=== PATIENT | female | born 1995 | race Caucasian/White ===

== ENCOUNTER → 2017-08-10 20:48 | Outpatient (CLI) | payer MEDICAID, SELFPAY | PROVIDERS: Family Provider Internal Medicine; PCP Internal Medicine; Visit Provider Nurse Practitioner Women's Health | DX: O09.90 Supervision of high risk pregnancy, unspecified, unspecified trimester (principal); Z3A.00 Weeks of gestation of pregnancy not specified | CPT/HCPCS: 87086; 87088 ==

== ENCOUNTER 2017-09-06 11:26 | Emergency (ER) | payer MEDICAID, SELFPAY ==
[2017-09-06 11:27] VITALS: BP 136/72; PULSE 92; RESP 15; TEMP 36; O2SAT 96; BMI 37.9
--- NOTE | 2017-09-06 11:49 | CT_ITS ---
STUDY: CT BRAIN WITHOUT CONTRAST REASON FOR EXAM: Female, 22 years old. 26 weeks patient with nausea and migraine headache. History of AVM. RADIATION DOSAGE (If Supplied By Facility): CTDIvol = ( 44.99 ) mGy, DLP = ( 762.36 ) mGycm TECHNIQUE: Transaxial CT imaging of the brain was performed without administration of intravenous contrast material. Individualized dose optimization techniques were used for this CT. COMPARISON: None. FINDINGS: Normal soft tissue structures. Normal calvarium. Normal size ventricles and extra-axial spaces for the patient's age. There is small area of increased attenuation in the posterior left occipital region adjacent to the occipital horn of the left lateral ventricle most consistent with small area of bleed. No shift in the midline is seen. Normal basal ganglia and thalami. Normal brainstem. Normal cerebellum. There are no findings of an acute ischemic infarction. Normal visualized paranasal sinuses. CT/Brain/Head without Contrast IMPRESSION: Small area of bleed in the left occipital region as described above. Close follow-up examination or MRI of the brain are recommended. N.B. : The above information has been verbally conveyed by Ayush Wahl MD to Dr. Lisy Sparks, Covering Physician, on 09/06/2017 12:50:18 (ET). Electronically Signed: Ayush Wahl MD at 12:47 EDT Tel , Service support , N.B. : The above information has been verbally conveyed by Ayush Wahl MD to Dr. Lisy Sparks, Covering Physician, on 09/06/2017 12:50:18 (ET).
--- NOTE | 2017-09-06 11:52 | ED.VISSUMM ---
- ER Visit Summary Date of Service: 09/06/17 Chief Complaint: Headache History of Present Illness: The patient is a 22 F presenting with headache which started this morning. Headache woke her from sleep. She states this is not the worst headache of her life. She is currently 26 weeks . She tried Tylenol at home with minimal improvement. She denies fever. She has photophobia. She states during her first she had cavernous angioma with bleeding and therefore she presented to the emergency department. Physical Examination: Vitals are stable. Patient is afebrile. Alert no acute distress. HEENT exam is unremarkable. Neck is supple. No meningismus Lungs are clear and equal bilaterally. Heart is regular rate and rhythm. Abdomen is soft nontender nondistended. Extremities are unremarkable. Skin is warm and dry. No focal neurologic deficit. NIH 0 Remainder of exam is unremarkable. Emergency Department Course and Treatment: Patient is given Reglan, Benadryl. CT head shows small area of bleed in the left occipital region. Close follow-up examination or MRI of the brain are recommended. Patient has been treated at [facility] before and prefers transfer to [facility]. Discussed with [facility] for transfer. Discussed with Dr. Moran. Patient will be transferred to [facility]. Disposition: Transfer [facility] Impression: Small left occipital bleed, headache, This note was generated with [employer] dictation software. It may contain incorrect words, spelling, and punctuation that were not noted in review of the chart prior to signing ED Disposition - Plan for ED Patient: Chief Complaint: Headache Referrals: Sherri rBown MD [Primary Care Provider] -
[2017-09-06] MEDS: Metoclopramide 10 MG Tablet PO (12:26)
[2017-09-06] MEDS: DiphenhydrAMINE 25 MG Capsule PO (12:26)
[2017-09-06] MEDS: 0.9% Normal Saline 1,000 ML 999 ML IV (12:27)
[2017-09-06 13:26] VITALS: BP 104/74; PULSE 71; RESP 21; O2SAT 94
[2017-09-06 13:27] LABS: Absolute Lymphocyte Count 2.92 X10^3/ul (0.83-4.51); Absolute Neutrophil Count 7.2 X10^3/uL (2.0-7.7); Basophil# 0.01 X10^3/uL; Basophil% 0.1 % (0-1); Eosinophil# 0.05 X10^3/uL; Eosinophils% 0.5 % (0-5); Hematocrit 36.4 % (37-47); Hemoglobin 12.6 g/dl (12.0-15.0); Lymphocyte # 2.92 X10^3/ul (4.0); Mean Corp Hgb Conc 34.6 g/gl (32-36); Mean Corpuscular Hgb 30.8 pg (27.0-32.0); Mean Platelet Vol. 10.3 fl (6.2-12.0); Monocyte# 0.61 X10^3/uL; Monocyte% 5.6 % (0-10); Neutrophil % 66.4 % (47-70); Platelet Count 183 K/mm3 (150-450); RBC Distribution Width CV 13.1 % (11.6-14.6); Red Blood Count 4.09 M/mm3 (4.2-5.4); White Blood Count 10.8 K/mm3 (4.4-11.0)
[2017-09-06 13:28] LABS: POSITIVE COUNT NO; POSITIVE DIFFERENTIAL NO; POSITIVE MORPHOLOGY NO
[2017-09-06 13:39] LABS: Anion Gap 9 (5-15); BUN 6 mg/dL (7-18); BUN/Creat Ratio 13.1 RATIO (10-20); Calcium,Total 8.2 mg/dL (8.5-10.1); Chloride 108 mmol/L (98-107); Creatinine, Serum 0.46 mg/dL (0.55-1.02); EST Glomerular Filtration Rate 178 mL/min (>60); Est Glom Filt Rate - Afr Amer 216 mL/min (>60); Glucose 78 mg/dL (74-106); Potassium 3.8 mmol/L (3.5-5.1); Sodium Level 139 mmol/L (136-145)
[2017-09-06 13:57] VITALS: BP 101/63; PULSE 84; RESP 20; O2SAT 99
== END 2017-09-06 14:01 | disposition short-term general hospital (02) ==
LOC: ED 12:02
PROVIDERS: Emergency Provider Emergency Medicine; Family Provider Internal Medicine; PCP Internal Medicine
DX: O99.412 Diseases of the circulatory system complicating pregnancy, second trimester (principal); I62.9 Nontraumatic intracranial hemorrhage, unspecified; Z3A.26 26 weeks gestation of pregnancy; Z86.79 Personal history of other diseases of the circulatory system
CPT/HCPCS: 70450; 80048; 85025; 99285; J7030; A4216

== ENCOUNTER 2017-09-13 23:50 | Outpatient (CLI) | payer MEDICAID, SELFPAY ==
[2017-09-14 00:12] VITALS: BMI 37.8
[2017-09-14] MEDS: Dextrose 5%-Lactated Ringers 1,000 ML 999 ML IV (00:50)
[2017-09-14 00:59] LABS: Bacteria 0 SEEN /hpf (None Seen); Mucous, Urine 0 SEEN /hpf (<or=2+); Red Blood Cells-Urine 0 SEEN /hpf (0-5)
[2017-09-14 01:01] LABS: Color, Urine Yellow (Yellow); Glucose, Dipstick Normal (Normal); Ketone-Dipstick 15 mg/dl (Negative); Leukocyte Esterase-Dipstick 25 /ul (Negative); Nitrite-Dipstick Negative (Negative); Occult Blood-Urine Negative /ul (Negative); Protein-Dipstick 30 mg/dl (Negative); Specific Gravity, Urine 1.025 (1.002-1.030); Urine Bilirubin Dipstick Negative (Negative); Urine Clarity Clear (Clear); Urine Urobilinogen Normal (Normal)
[2017-09-14] MEDS: Ondansetron 4 MG/2 ML Vial IV ×2 (01:10→08:45)
[2017-09-14 01:20] LABS: Hematocrit 40.3 % (37-47); Hemoglobin 14.1 g/dl (12.0-15.0); Mean Corpuscular Hgb 31.2 pg (27.0-32.0); Mean Corpuscular Volume 89.2 fL (81-99); Mean Platelet Vol. 10.8 fl (6.2-12.0); Platelet Count 204 K/mm3 (150-450); RBC Distribution Width CV 13.5 % (11.6-14.6); Red Blood Count 4.52 M/mm3 (4.2-5.4)
[2017-09-14 01:21] LABS: Scan Indicated on CBC? Y/N NO
[2017-09-14 01:34] LABS: ALB/GLOB Ratio 0.6 RATIO (0.9-2.4); AST(SGOT) 14 U/L (15-37); Alanine Aminotransfer ALT/SGPT 21 U/L (13-56); Albumin, Serum 2.7 g/dL (3.2-5.0); Alkaline Phosphatase 84 U/L (45-117); Anion Gap 9 (5-15); BUN 10 mg/dL (7-18); BUN/Creat Ratio 17.2 RATIO (10-20); Calcium,Total 8.2 mg/dL (8.5-10.1); Chloride 109 mmol/L (98-107); Creatinine, Serum 0.58 mg/dL (0.55-1.02); EST Glomerular Filtration Rate 135 mL/min (>60); Est Glom Filt Rate - Afr Amer 164 mL/min (>60); Estimated Creatinine Clearance 112.86 ml/min; Globulin 4.5 g/dL (2.2-4.2); Glucose 93 mg/dL (74-106); Potassium 3.8 mmol/L (3.5-5.1); Protein, Total 7.2 g/dL (6.4-8.2); Sodium Level 140 mmol/L (136-145)
[2017-09-14 02:30] LABS: Amorphous Sediment 1+; Squamous Epithelial Cells - UA 5-10 SEEN /hpf (5-10); White Blood Cells 0-5 SEEN /hpf (0-5)
[2017-09-14] MEDS: Lactated Ringers 1,000 ML 200 ML IV (02:46)
[2017-09-14] MEDS: proMETHazine 25 MG/ML Syringe 12.5 MG IV (02:47)
[2017-09-14] MEDS: Lactated Ringers 500 ML 999 ML IV (06:48)
[2017-09-14] MEDS: Lactated Ringers 1,000 ML 150 ML IV (07:48)
[2017-09-14] MEDS: Acetaminophen 500 MG Tablet 1000 MG PO (08:42)
--- NOTE | 2017-09-16 05:26 | OB.TRI.NOTE ---
History of Present Illness Date of Service: 09/14/17 Reason For Visit: CRAMPING, N/V Date of Service: 09/14/17 Final ANGELA: 12/12/17 Gestational age: 27 Weeks and 4 Days History of Present Illness: 22 yo presented with abdominal pain nausea and vomiting at 27 weeks. no vb lof good fm some contractions. she denies any sick contacts. she hasn't kept anything but water down in 24 hours. ROS: general no fevers gi see hpi Home Medications Medication Instructions Recorded Pnv No.122/Iron/Folic Acid 1 ea PO BID 05/12/17 [ Multi Tablet] Allergies amoxicillin [Amoxicillin] Allergy (Verified 09/15/17 11:55) Rash clarithromycin [From Biaxin] Allergy (Verified 09/15/17 11:55) Rash soy Allergy (Verified 09/15/17 11:55) Anaphylaxis lactose Adverse Reaction (Verified 09/15/17 11:55) Upset Stomach latex Adverse Reaction (Verified 09/15/17 11:55) Rash - Pertinent Past Medical History Pertinent Past Medical History: Past Medical History (Last Reviewed 09/15/17 @ 11:55 by Barbara Gatica) Cavernous hemangioma of brain (Acute) HSV (herpes simplex virus) infection (Acute) Post depression (Acute) Past Surgical History (Last Reviewed 09/15/17 @ 11:55 by Barbara Gatica) delivery delivered (Acute) Physical Exam General: Alert, Oriented x3, No apparent distress Cardiovascular: Regular rate Lungs: Normal air movement Abdomen: Soft, Non Tender, Gravid NST - FHR Rate Baby A Baseline: 150 Variability:: Moderate Accelerations:: 10 x 10 Decelerations:: None NST Reactive:: Yes FHR Category:: Category I Uterine Activity:: no regular Impression/Plan 27 weeks nausea vomiting likeyl viral gastroenteritis- ivfs given and anti emetics, tolearting po now dc home
== END 2017-09-14 10:40 | disposition home or self-care (01) ==
LOC: WPOUT 09-14 00:08 → WP 09-14 00:08
PROVIDERS: Family Provider Internal Medicine; PCP Internal Medicine; Visit Provider Obstetrics & Gynecology
DX: O21.2 Late vomiting of pregnancy (principal); Z3A.27 27 weeks gestation of pregnancy
CPT/HCPCS: 96361; 96374; 96375; 96376; 36415; 59025; 59050; 80053; 81001; 85027; 87086; 87088; 99218; G0378

== ENCOUNTER → 2017-09-17 10:26 | Outpatient (CLI) | payer MEDICAID, SELFPAY ==
[2017-09-17 12:01] LABS: Glucose Challenge Gest 1H 50g 89 mg/dL (70-140)
== END ==
PROVIDERS: Family Provider Internal Medicine; PCP Internal Medicine; Visit Provider Obstetrics & Gynecology
DX: O34.219 Maternal care for unspecified type scar from previous cesarean delivery (principal); Z3A.00 Weeks of gestation of pregnancy not specified
CPT/HCPCS: 36415; 82950

== ENCOUNTER → 2017-10-05 23:33 | Outpatient (CLI) | payer MEDICAID, SELFPAY | PROVIDERS: Family Provider Internal Medicine; PCP Internal Medicine; Visit Provider Nurse Practitioner Women's Health | DX: O26.893 Other specified pregnancy related conditions, third trimester (principal); R10.2 Pelvic and perineal pain; Z3A.00 Weeks of gestation of pregnancy not specified | CPT/HCPCS: 87077; 87086; 87088; 87186 ==

== ENCOUNTER 2017-10-10 20:15 | Outpatient (CLI) | payer MEDICAID, SELFPAY ==
[2017-10-10 21:21] VITALS: BMI 38.5
[2017-10-10 21:25] LABS: Color, Urine Yellow (Yellow); Glucose, Dipstick Normal (Normal); Ketone-Dipstick Negative (Negative); Leukocyte Esterase-Dipstick Negative /ul (Negative); Nitrite-Dipstick Negative (Negative); Occult Blood-Urine Negative /ul (Negative); Protein-Dipstick Negative (Negative); Urine Bilirubin Dipstick Negative (Negative); Urine Clarity Clear (Clear); Urine Urobilinogen Normal (Normal)
[2017-10-10 21:26] LABS: Bacteria 0 SEEN /hpf (None Seen); Mucous, Urine 0 SEEN /hpf (<or=2+); Red Blood Cells-Urine 0 SEEN /hpf (0-5); White Blood Cells 0 SEEN /hpf (0-5)
[2017-10-10 21:29] LABS: Squamous Epithelial Cells - UA 0-5 SEEN /hpf (5-10)
--- NOTE | 2017-10-10 22:00 | OB.TRI.NOTE ---
History of Present Illness Date of Service: 10/10/17 Was patient seen by the physician?: No Reason For Visit: R/O LABOR Date of Service: 10/10/17 Final ANGELA: 12/12/17 Final ANGELA Source: US <20 weeks Gestational age: 31 Weeks History of Present Illness: 22yo @ 31wga with c/o cramping. No leaking of fluid or vaginal bleeding. Fetus active. Home Medications Medication Instructions Recorded Pnv No.122/Iron/Folic Acid 1 ea PO BID 05/12/17 [ Multi Tablet] cyclobenzaprine 10 mg tablet 10 mg PO TID PRN #30 tab 09/22/17 Acetaminophen [Tylenol] 325 mg PO Q6H PRN PRN 10/10/17 Nitrofurantoin Macrocrystal 100 mg PO BID 10/10/17 [Nitrofurantoin] Allergies amoxicillin [Amoxicillin] Allergy (Verified 10/10/17 22:06) Rash clarithromycin [From Biaxin] Allergy (Verified 10/10/17 22:06) Rash soy Allergy (Verified 10/10/17 22:06) Anaphylaxis lactose Adverse Reaction (Verified 10/10/17 22:06) Upset Stomach latex Adverse Reaction (Verified 10/10/17 22:06) Rash Physical Exam Cervix Dilation (cm): 0 Station: -3 Effacement (%): 0 NST - FHR Rate Baby A Baseline: 140 Variability:: Moderate Accelerations:: 15 x 15 Decelerations:: None NST Reactive:: Yes FHR Category:: Category I Uterine Activity:: 0/10 Impression/Plan 22yo with false labor at < 37wga, Cat I FHR. -U/A neg -d/c home
== END 2017-10-10 22:05 | disposition home or self-care (01) ==
LOC: WPOUT 20:47 → WP 20:48
PROVIDERS: Family Provider Internal Medicine; PCP Internal Medicine; Visit Provider Obstetrics & Gynecology
DX: O47.03 False labor before 37 completed weeks of gestation, third trimester (principal); Z3A.31 31 weeks gestation of pregnancy
CPT/HCPCS: 59025; 59050; 81001; 99218; G0378

== ENCOUNTER 2017-10-29 22:20 | Outpatient (CLI) | payer MEDICAID, SELFPAY ==
[2017-10-29 22:54] VITALS: BMI 40.1
[2017-10-29 23:38] LABS: Bacteria 0 SEEN /hpf (None Seen); Mucous, Urine 0 SEEN /hpf (<or=2+); Red Blood Cells-Urine 0 SEEN /hpf (0-5); Squamous Epithelial Cells - UA 0 SEEN /hpf (5-10); White Blood Cells 0 SEEN /hpf (0-5)
[2017-10-29 23:43] LABS: Color, Urine Yellow (Yellow); Glucose, Dipstick 100 mg/dl (Normal); Ketone-Dipstick Negative (Negative); Leukocyte Esterase-Dipstick Negative /ul (Negative); Nitrite-Dipstick Negative (Negative); Occult Blood-Urine Negative /ul (Negative); Protein-Dipstick Negative (Negative); Specific Gravity, Urine 1.015 (1.002-1.030); Urine Bilirubin Dipstick Negative (Negative); Urine Clarity Clear (Clear); Urine Urobilinogen Normal (Normal); Urine pH 6.5 (5.0 - 8.0)
[2017-10-30 00:28] VITALS: RESP 18
--- NOTE | 2017-11-03 05:57 | OB.TRI.NOTE ---
- Problem List (1) headache in third trimester Status: Acute History of Present Illness Was patient seen by the physician?: Yes Reason For Visit: NUMBNESS/TINGLING IN HANDS Final ANGELA Source: US <20 weeks History of Present Illness: visual changes- she has had blurry vision intermittently, nothing new for her, co numbness and tingling in her arms, resolved now Home Medications Medication Instructions Recorded Pnv No.122/Iron/Folic Acid 1 ea PO BID 05/12/17 [ Multi Tablet] Allergies amoxicillin [Amoxicillin] Allergy (Verified 10/29/17 22:54) Rash clarithromycin [From Biaxin] Allergy (Verified 10/29/17 22:54) Rash soy Allergy (Verified 10/29/17 22:54) Anaphylaxis lactose Adverse Reaction (Verified 10/29/17 22:54) Upset Stomach latex Adverse Reaction (Verified 10/29/17 22:54) Rash - Pertinent Past Medical History Medical History: Past Medical History (Last Reviewed 10/21/17 @ 09:09 by Barbara Gatica) 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 reactive nst dc home
== END 2017-10-30 00:28 | disposition home or self-care (01) ==
LOC: WPOUT 22:25 → WP 22:25
PROVIDERS: Family Provider Internal Medicine; PCP Internal Medicine; Visit Provider Obstetrics & Gynecology
DX: O26.899 Other specified pregnancy related conditions, unspecified trimester (principal); H53.8 Other visual disturbances; R20.0 Anesthesia of skin; Z3A.00 Weeks of gestation of pregnancy not specified
CPT/HCPCS: 59025; 59050; 81001; 99218; G0378

== ENCOUNTER 2017-11-06 15:00 | Outpatient (CLI) | payer MEDICAID, SELFPAY ==
--- NOTE | 2017-11-06 14:00 | US_ITS ---
STUDY: SECOND AND THIRD TRIMESTER OBSTETRICAL ULTRASOUND - LIMITED REASON FOR EXAM: Female, 22 years old. Routine survey. LMP: March 07, 2017. PRIOR ULTRASOUND: None. TECHNIQUE: Transabdominal ultrasound evaluation was performed. FINDINGS: There is a single intrauterine fetus. The fetus is in a cephalic presentation. There is demonstrated cardiac activity with a heart rate of 149 bpm. There is decreased amniotic fluid volume consistent with oligohydramnios. The largest amniotic fluid pocket measures 5.4 cm x 1.8 cm. The amniotic fluid index (STACIA) is 6.6 cm. The placenta is anterior in location and is not low lying. There are Grade 1 placental changes. The cervix measures 4.2 cm cm in length. BIOMETRY: BPD: 8.14 cm: 32 weeks, 5 days HC: 30.86 cm: 34 weeks, 4 days AC: 31.43 cm: 35 weeks, 3 days FL: 6.67 cm: 34 weeks, 3 days Age by LMP: 34 weeks, 6 days. ANGELA by LMP: December 12, 2017. age by current US: 34 weeks, 2 days. ANGELA by current US: December 16, 2017. Estimated weight: 2496 grams, +/- 364 grams, 42 percentile. Gender: Indeterminant US/OB Limited With Biometrics IMPRESSION: Single live uterine gestation with a mean gestational age of 34 weeks and 2 days. Oligohydramnios. Electronically Signed: Vinay Garrett MD at 15:17 EDT Tel [phone], Service support ,
[2017-11-06 15:20] VITALS: BMI 40.2
[2017-11-06 15:58] LABS: ROM Internal Control Test YES-OK TO RESULT pt. (Internal QC)
[2017-11-06 15:59] LABS: ROM Patient Test Negative (Negative)
--- NOTE | 2017-11-18 04:48 | OB.TRI.NOTE ---
History of Present Illness Date of Service: 11/06/17 Was patient seen by the physician?: No Reason For Visit: GROWTH Date of Service: 11/06/17 Final ANGELA Source: US <20 weeks Allergies amoxicillin [Amoxicillin] Allergy (Verified 11/17/17 21:06) Rash clarithromycin [From Biaxin] Allergy (Verified 11/17/17 21:06) Rash soy Allergy (Verified 11/17/17 21:06) Anaphylaxis lactose Adverse Reaction (Verified 11/17/17 21:06) Upset Stomach latex Adverse Reaction (Verified 11/17/17 21:06) Rash - Pertinent Past Medical History Medical History: Past Medical History (Last Reviewed 11/04/17 @ 09:34 by Barbara Gatica) Cavernous hemangioma of brain HSV (herpes simplex virus) infection Post depression Surgical History: Past Surgical History (Last Reviewed 11/04/17 @ 09:34 by Barbara Gatica) delivery delivered Impression/Plan patient seen needed growth scan, headache- WNL dc home fu in office
== END 2017-11-06 16:30 | disposition home or self-care (01) ==
LOC: WPOUT 15:17 → US 15:26 → WPOUT 15:27 → WP 15:28
PROVIDERS: Family Provider Internal Medicine; PCP Internal Medicine; Visit Provider Obstetrics & Gynecology
DX: O09.90 Supervision of high risk pregnancy, unspecified, unspecified trimester (principal); Z87.59 Personal history of other complications of pregnancy, childbirth and the puerperium; Z3A.00 Weeks of gestation of pregnancy not specified
CPT/HCPCS: 59025; 59050; 76816; 84112; 99218; G0378

== ENCOUNTER 2017-11-17 18:40 | Emergency (ER) | payer MEDICAID, SELFPAY ==
[2017-11-17 18:41] VITALS: BP 104/68; PULSE 101; RESP 16; TEMP 36.9; O2SAT 97; BMI 41.1
--- NOTE | 2017-11-17 18:44 | RAD_ITS ---
STUDY: X-RAY - RIGHT FOOT CLINICAL: Female, 22 years old. Foot pain after fall. TECHNIQUE: 3 view(s) of the foot. COMPARISON: None. FINDINGS: There is a plantar calcaneal enthesophyte present. Normal visualized subtalar, talonavicular, calcaneocuboid, tarsal and tarsometatarsal articulations. Normal metatarsi. Normal metatarsophalangeal joint of the great toe. Normal interphalangeal joint of the great toe. Normal phalanges of the great toe. Normal second through fifth metatarsophalangeal joints. Normal interphalangeal joints and phalanges of the lesser toes. The soft tissue structures are unremarkable. RAD/Foot min 3 Views IMPRESSION: No acute osseous injury. Electronically Signed: Smita Broderick MD at 19:33 EDT Tel , Service support ,
--- NOTE | 2017-11-17 19:53 | ED.DCSUM_ITS ---
- ER Visit Summary Date of Service: 11/17/17 Chief Complaint: Right foot pain History of Present Illness: The patient is a 22 F presenting with right foot pain. Patient states she slipped and fell twisting her foot and landing on her back. She is 36 weeks . She states she did not hit her abdomen. She denies fluid leakage or vaginal bleeding. She hit her head but did not lose consciousness. She complains of right foot pain. She called her OB was advised to come for an x-ray of her foot and then go to OB triage for nonstress test. Physical Examination: Vitals are stable. Patient is afebrile. Alert no acute distress. HEENT exam is unremarkable. Neck is nontender Lungs are clear and equal bilaterally. Heart is regular rate and rhythm. Abdomen is soft nontender gravid Extremities right 3rd-5th toe tenderness. No ankle or knee tenderness Skin is warm and dry. No focal neurologic deficit. Remainder of exam is unremarkable. Emergency Department Course and Treatment: X-ray of the right foot shows no acute process. Toes are elvis taped, she is given a postop shoe. She will follow-up in OB triage. Disposition: To OB triage Impression: Right foot contusion status post mechanical fall, third trimester This note was generated with [employer] dictation software. It may contain incorrect words, spelling, and punctuation that were not noted in review of the chart prior to signing ED Disposition - Plan for ED Patient: Chief Complaint: Lower Extremity Injury Referrals: Sherri Brown MD [Primary Care Provider] -
--- NOTE | 2017-11-17 19:56 | ED.DEP ---
ED Disposition - Plan for ED Patient: Chief Complaint: Lower Extremity Injury Instructions: ED Contusion Foot Referrals: Sherri Brown MD [Primary Care Provider] -
[2017-11-17 20:21] VITALS: RESP 18
--- NOTE | 2017-11-17 20:22 | ED.RN ---
PT IS AWARE NEEDS TO GO TO OB FOR NST. OB AWARE.
== END 2017-11-17 20:23 | disposition home or self-care (01) ==
PROVIDERS: Emergency Provider Emergency Medicine; Family Provider Internal Medicine; PCP Internal Medicine
DX: O26.893 Other specified pregnancy related conditions, third trimester (principal); S90.31XA Contusion of right foot, initial encounter; Z3A.36 36 weeks gestation of pregnancy; W01.0XXA Fall on same level from slipping, tripping and stumbling without subsequent striking against object, initial encounter; Y93.01 Activity, walking, marching and hiking; Y92.89 Other specified places as the place of occurrence of the external cause; Y99.8 Other external cause status
CPT/HCPCS: 73630; 99283

== ENCOUNTER 2017-11-17 20:25 | Outpatient (CLI) | payer MEDICAID, SELFPAY ==
--- NOTE | 2017-11-17 22:38 | OB.TRI.NOTE ---
- Problem List (1) Fall Status: Acute History of Present Illness Date of Service: 11/17/17 Was patient seen by the physician?: Yes Reason For Visit: NST Date of Service: 11/17/17 Final ANGELA Source: US <20 weeks Allergies amoxicillin [Amoxicillin] Allergy (Verified 11/17/17 21:06) Rash clarithromycin [From Biaxin] Allergy (Verified 11/17/17 21:06) Rash soy Allergy (Verified 11/17/17 21:06) Anaphylaxis lactose Adverse Reaction (Verified 11/17/17 21:06) Upset Stomach latex Adverse Reaction (Verified 11/17/17 21:06) Rash - Pertinent Past Medical History Medical History: Past Medical History (Last Reviewed 11/04/17 @ 09:34 by Barbara Gatica) Cavernous hemangioma of brain HSV (herpes simplex virus) infection Post depression Surgical History: Past Surgical History (Last Reviewed 11/04/17 @ 09:34 by Barbara Gatica) delivery delivered NST - FHR Rate Baby A Baseline: 140 Variability:: Moderate Accelerations:: 15 x 15 Decelerations:: None NST Reactive:: Yes FHR Category:: Category I Uterine Activity:: irritability Impression/Plan fall- reactive nst no abdominal pain and good movement, dc home kick counts labor precautions
== END 2017-11-17 22:05 | disposition home or self-care (01) ==
LOC: WPOUT 20:28 → WP 20:29
PROVIDERS: Family Provider Internal Medicine; PCP Internal Medicine; Visit Provider Obstetrics & Gynecology
DX: Z34.90 Encounter for supervision of normal pregnancy, unspecified, unspecified trimester (principal); W19.XXXA Unspecified fall, initial encounter; O26.893 Other specified pregnancy related conditions, third trimester; S90.31XA Contusion of right foot, initial encounter; Z3A.36 36 weeks gestation of pregnancy; W01.0XXA Fall on same level from slipping, tripping and stumbling without subsequent striking against object, initial encounter; Y92.89 Other specified places as the place of occurrence of the external cause; Y99.8 Other external cause status
CPT/HCPCS: 59025; 59050; 73630; 99218; 99283; G0378

== ENCOUNTER → 2017-11-19 08:51 | Outpatient (CLI) | payer MEDICAID, SELFPAY ==
--- NOTE | 2017-11-19 08:52 | US_ITS ---
STUDY: SECOND AND THIRD TRIMESTER OBSTETRICAL ULTRASOUND - LIMITED REASON FOR EXAM: Female, 22 years old. well-being LMP: March 07, 2017 PRIOR ULTRASOUND: November 06, 2017 TECHNIQUE: Transabdominal ultrasound evaluation was performed. FINDINGS: There is a single intrauterine fetus. The fetus is in a cephalic presentation. There is demonstrated cardiac activity with a heart rate of 155 bpm. There is a normal amniotic fluid volume. The largest amniotic fluid pocket measures 3.1 cm. The amniotic fluid index (STACIA) is 8.0 cm. The placenta is anterior and not low lying There are Grade 1 placental changes. The cervix measures 3.6 cm in length. BIOMETRY: BPD: 8.48 cm: 34 weeks, 4 days HC: 31.98 cm: 36 weeks, 1 days AC: 33.56 cm: 37 weeks, 4 days FL: 7.01 cm: 36 weeks, 0 days Age by LMP: 36 weeks, 5 days. ANGELA by LMP: 12/12/2017. age by prior US: 34 weeks, 2 days. ANGELA by prior US: 12/16/2017. age by current US: 36 weeks, 0 days. ANGELA by current US: 12/17/2017. Estimated weight: 2968 grams, +/- 433 grams, 50 percentile. US/OB Limited With Biometrics IMPRESSION: Single live intrauterine fetus with an estimated gestational age by ultrasound of 36 weeks and 0 days. Electronically Signed: Smita Broderick MD at 11:12 EDT Tel , Service support ,
[2017-11-19 18:12] LABS: Group B Strep DNA By PCR POSITIVE (Negative); Probe Check PASS
== END ==
PROVIDERS: Family Provider Internal Medicine; PCP Internal Medicine; Visit Provider Obstetrics & Gynecology
DX: Z87.59 Personal history of other complications of pregnancy, childbirth and the puerperium (principal)
CPT/HCPCS: 76816

== ENCOUNTER → 2017-11-19 17:04 | Outpatient (CLI) | payer MEDICAID, SELFPAY | PROVIDERS: Family Provider Internal Medicine; PCP Internal Medicine; Visit Provider Obstetrics & Gynecology | DX: O09.90 Supervision of high risk pregnancy, unspecified, unspecified trimester (principal) | CPT/HCPCS: 76816; 87653 ==

== ENCOUNTER 2017-11-23 15:00 | Outpatient (CLI) | payer MEDICAID, SELFPAY ==
[2017-11-23 15:41] VITALS: BMI 41.3
--- NOTE | 2017-11-23 21:11 | OB.TRI.NOTE ---
- Problem List (1) False labor Status: Acute History of Present Illness Date of Service: 11/23/17 Was patient seen by the physician?: No Reason For Visit: R/O LABOR Date of Service: 11/23/17 Final ANGELA Source: US <20 weeks History of Present Illness: co ctx for the past few hours Allergies amoxicillin [Amoxicillin] Allergy (Verified 11/23/17 15:43) Rash clarithromycin [From Biaxin] Allergy (Verified 11/23/17 15:43) Rash soy Allergy (Verified 11/23/17 15:43) Anaphylaxis lactose Adverse Reaction (Verified 11/23/17 15:43) Upset Stomach latex Adverse Reaction (Verified 11/23/17 15:43) Rash - Pertinent Past Medical History Medical History: Past Medical History (Last Reviewed 11/19/17 @ 11:35 by Barbara Gatica) Cavernous hemangioma of brain HSV (herpes simplex virus) infection Post depression Surgical History: Past Surgical History (Last Reviewed 11/19/17 @ 11:35 by Barbara Gatica) delivery delivered NST - FHR Rate Baby A Baseline: 140-150 Variability:: Moderate Accelerations:: 15 x 15 Decelerations:: None NST Reactive:: Yes FHR Category:: Category I Uterine Activity:: irregular Impression/Plan no cervical change- false labor reactive nst dc yazan labor precautions
== END 2017-11-23 17:15 | disposition home or self-care (01) ==
LOC: WPOUT 15:07 → WP 15:08
PROVIDERS: Family Provider Internal Medicine; PCP Internal Medicine; Visit Provider Obstetrics & Gynecology
DX: O47.9 False labor, unspecified (principal); Z3A.00 Weeks of gestation of pregnancy not specified
CPT/HCPCS: 59050; 99218; G0378

== ENCOUNTER 2017-12-03 15:05 | Outpatient (CLI) | payer MEDICAID, SELFPAY ==
[2017-12-03 15:35] VITALS: BMI 42.0
[2017-12-03] MEDS: Mag Hydrox/Al Hydrox/Simeth 30 ML UDC PO (18:33)
--- NOTE | 2017-12-04 02:52 | OB.TRI.NOTE ---
History of Present Illness Date of Service: 12/03/17 Was patient seen by the physician?: Yes Reason For Visit: MONITORING FOR FALL Final ANGELA Source: US <20 weeks Allergies amoxicillin [Amoxicillin] Allergy (Verified 12/01/17 09:44) Rash clarithromycin [From Biaxin] Allergy (Verified 12/01/17 09:44) Rash soy Allergy (Verified 12/01/17 09:44) Anaphylaxis lactose Adverse Reaction (Verified 12/01/17 09:44) Upset Stomach latex Adverse Reaction (Verified 12/01/17 09:44) Rash - Pertinent Past Medical History Medical History: Past Medical History (Last Reviewed 12/01/17 @ 09:45 by Kelsi Heath) Cavernous hemangioma of brain HSV (herpes simplex virus) infection Post depression Surgical History: Past Surgical History (Last Reviewed 12/01/17 @ 09:45 by Kelsi Heath) delivery delivered NST - FHR Rate Baby A Baseline: 130 Variability:: Moderate Accelerations:: 15 x 15 Decelerations:: None NST Reactive:: Yes FHR Category:: Category I Uterine Activity:: no regular Impression/Plan abdominal trauma extended monitoring stable ddc home reassuring fht
== END 2017-12-03 20:10 | disposition home or self-care (01) ==
LOC: WPOUT 15:32 → WP 12-07 08:34
PROVIDERS: Family Provider Internal Medicine; PCP Internal Medicine; Visit Provider Obstetrics & Gynecology
DX: O9A.219 Injury, poisoning and certain other consequences of external causes complicating pregnancy, unspecified trimester (principal); S39.91XA Unspecified injury of abdomen, initial encounter; Z3A.00 Weeks of gestation of pregnancy not specified; W19.XXXA Unspecified fall, initial encounter; Y93.9 Activity, unspecified; Y92.9 Unspecified place or not applicable; O99.89 Other specified diseases and conditions complicating pregnancy, childbirth and the puerperium; D18.02 Hemangioma of intracranial structures
CPT/HCPCS: 59025; 59050; 99218; G0378

== ENCOUNTER 2017-12-11 05:08 | Inpatient (IN) | payer MEDICAID, SELFPAY ==
[2017-12-08 13:00] VITALS: BMI 42.4
[2017-12-11] VITALS (20 sets, daily range): BP systolic 91–126; BP diastolic 43–74; PULSE 55–99; RESP 16–20; TEMP 36.1–36.9; O2SAT 93–100; BMI 41.7
--- NOTE | 2017-12-11 | FALS_PTH ---
PATIENT: LESTER OLIVER LOC: [facility] U#:[id number] AGE/SX: 22/F ROOM: WP007 RE12/11/[address]: Dr. Tanesha Moran MD : 1995 BED: 1 DIS: 12/14/2017 SPEC #: [id number] RECD: 12/14/17 08:48 STATUS: MARGUERITE JOHNNY #: [id number] BROOK: 12/11/17 00:[address]: Tanesha Moran DEPT: SURGICAL PATHOLOGY RECD BY: Mitchel Rg ENTERED: 12/14/17 08:49 SP TYPE: FALL TUBES OTHR DR: MD Sherri Petersen MD Tissues: Fallopian tube Procedures: Surgery Specimen Level II HEADER OPERATION: Tubal ligation PRE-OP DIAGNOSIS: Desires sterilization TISSUE SUBMITTED: Fallopian tubes, suture in left tube MICROSCOPIC DIAGNOSIS Bilateral fallopian tubes, tubal ligation: Right fallopian tube ? completely transected segment of fallopian tube, no pathologic diagnosis. Left fallopian tube ? completely transected segment of fallopian tube with focal eosinophilic metaplasia. KAREN:pete 12/15/17 COMMENT Case has been reviewed in consultation with Dr. Carver who concurs with the above diagnosis. IDC:AM MICROSCOPIC DESCRIPTION Slides are reviewed. GROSS DESCRIPTION Received is one container labeled with the patient's name and designated left tube with suture, bilateral fallopian tubes. The specimen consists of two tubular pieces of hoyt soft tissue with the left tube identified by a suture. The left fallopian tube measures 2 cm in length and 0.6 cm in diameter and is inked black. The right fallopian tube measures 1.5 cm in length and 0.6 cm in diameter. The entire specimen is submitted in one cassette. Both pieces will be sectioned at the time of embedding. / KAREN:pete 12/14/17 TC:5 CPT: 27867 x2
[2017-12-11] MEDS: Lactated Ringers 1,000 ML 999 ML IV (05:48)
[2017-12-11 06:13] LABS: Absolute Lymphocyte Count 2.05 X10^3/ul (0.83-4.51); Absolute Neutrophil Count 5.8 X10^3/uL (2.0-7.7); Basophil# 0.01 X10^3/uL; Basophil% 0.1 % (0-1); Eosinophil# 0.12 X10^3/uL; Eosinophils% 1.3 % (0-5); Hematocrit 35.8 % (37-47); Hemoglobin 12.4 g/dl (12.0-15.0); Lymphocyte # 2.05 X10^3/ul (4.0); Mean Corp Hgb Conc 34.6 g/gl (32-36); Mean Corpuscular Hgb 31.2 pg (27.0-32.0); Mean Corpuscular Volume 90.2 fL (81-99); Mean Platelet Vol. 10.8 fl (6.2-12.0); Monocyte# 0.88 X10^3/uL; Monocyte% 9.9 % (0-10); Neutrophil # 5.81 X10^3/uL (2.7-7.7); Neutrophil % 65.3 % (47-70); Platelet Count 165 K/mm3 (150-450); RBC Distribution Width CV 13.4 % (11.6-14.6); RBC Distribution Width SD 43.2 fl (35.1-43.9); Red Blood Count 3.97 M/mm3 (4.2-5.4); White Blood Count 8.9 K/mm3 (4.4-11.0)
[2017-12-11 06:19] LABS: POSITIVE COUNT NO; POSITIVE DIFFERENTIAL NO; POSITIVE MORPHOLOGY NO
[2017-12-11] MEDS: Lactated Ringers 1,000 ML 150 ML IV (06:41)
[2017-12-11] MEDS: Sodium Citrate/Citric Acid 30 ML UDC PO (07:15)
--- NOTE | 2017-12-11 07:31 | PCM.HP.OB ---
- Problem List (1) headache in third trimester Status: Acute (2) History of prior with IUGR Status: Acute Comment: growth us 3rd trimester (3) GBS (group B streptococcus) UTI complicating Status: Acute Qualifiers: Comment: treated (4) Cavernous hemangioma Status: Acute (5) History of delivery, currently Status: Acute Comment: plans repeat and BTL- Title 19 signed. (6) Supervision of high-risk Status: Acute Qualifiers: Comment: PRR ANGELA 12/12/17; Girl: Lesia; PC loli boyfriend joel ANTHONY [facility] History Date of Admission: 12/11/17 Final ANGELA: 12/12/17 Final ANGELA Source: US <20 weeks Gestational age: 39 Weeks and 6 Days History of this : This is a 22 year-old, , at 39 weeks gestational age. 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 HSV (herpes simplex virus) infection B00.9 Post depression F53 Surgical History: Surgical History (Last Reviewed 12/08/17 @ 10:40 by Sirisha Al) delivery delivered O82 Allergies amoxicillin [Amoxicillin] Allergy (Verified 12/08/17 10:39) Rash clarithromycin [From Biaxin] Allergy (Verified 12/08/17 10:39) Rash soy Allergy (Verified 12/08/17 10:39) Anaphylaxis lactose Adverse Reaction (Verified 12/08/17 10:39) Upset Stomach latex Adverse Reaction (Verified 12/08/17 10:39) Rash Home Medications: Home Medications Sar038/FA/Omega3/Dha/Fish Oil [ Gummies] 2 ea PO DAILY 11/17/17 breast pump See Dose Instructions .ROUTE .MEDSUPPLY #1 ea 11/23/17 Smoking Status: Former smoker Number of Fetus(es): 1 Heart Tracin History Past Pregnancies: Past Pregnancies Delivery Date Name GA/Weeks Outcome Route Weight Infant Gender Labor Length Anesthesia Delivery Location Provider FOB 2017 LOLI 39 [facility]CS [facility] Labs: [facility] Labs & Results 12/11/17 12/11/17 05:45 05:45 WBC 8.9 RBC 3.97 L Hgb 12.4 Hct 35.8 L MCV 90.2 MCH 31.2 MCHC 34.6 RDW 13.4 RDW Differential 43.2 Plt Count 165 MPV 10.8 Immature Gran % (Auto) 0.400 Neut % (Auto) 65.3 Lymph % (Auto) 23.0 [place] % (Auto) 9.9 Eos % (Auto) 1.3 Baso % (Auto) 0.1 Absolute Neuts (auto) 5.8 Absolute Lymphs (auto) 2.05 Total Counted Not Reportable Blood Type B POSITIVE Antibody Screen NEGATIVE Course Did the patient receive Yes care? Labs Blood Type: B RH: POSITIVE RPR/VDRL/Syphilis Nonreactive Rubella status Immune HbSAg Negative Date Done: 05/06/17 Chlamydia Negative Gonorrhea Negative HIV/AIDS Non-Reactive Group B Strep: Positive Current Obstetrical History Gestational Diabetes No Incompetent Cervix No Infertility No IUGR No Macrosomia No Hypertension/Pre-eclampsia No Placenta Previa/Abruption No PTL/PROM No Uterine anomaly No Oligohydramnios No Polyhydramnios No Multiple gestation No Past Medical History Asthma No Diabetes No Hypertension No Heart disease No Mitral valve prolapse No Neurologic/Seizure disorder/ Yes: cavernous hemangimoa in brain Migraines Kidney disease No Liver disease No Varicosities No Clotting disorders/Hx of DVT No Thyroid Dysfunction No Other medical diseases No Psychiatric disorders Yes: ADD Major trauma No Abnormal PAP smear No Sleep apnea No Mammogram in the last 2 years No Social History Marital Status: SINGLE Alleged father Marbin Hx Smoking Yes Smoking Status Former smoker Expected Delivery Method: Scheduled Section Review of Systems Constitutional: Denies: Fever, Malaise Eyes: Denies: Blurred vision, Vision Change HEENT: Denies: Head Aches, Visual Changes Cardiovascular: Denies: Chest Pain, Palpitations Respiratory: Denies: Cough, Shortness of Breath, Wheezing Gastrointestinal: Denies: Abdominal Pain, Diarrhea, Nausea, Vomiting Genitourinary: Denies: Dysuria, Hematuria Musculoskeletal: Denies: Joint Pain, Muscle pain Skin: Denies: Lesions, Rash Neurological: Denies: Blurred vision, Focal weakness, Headaches Psychiatric: Denies: Anxiety, Depression Endocrine: Denies: Heat/ Cold Intolerance Hematologic/ Lymphatic: Denies: Easy Bruising, Easy Bleeding Physical Exam General: Alert, Cooperative, No apparent distress HEENT: Atraumatic, Normocephalic. Negative for: Thyromegaly, Lymphadenopathy Cardiovascular: Regular rate Lungs: Normal air movement Abdomen: Soft, Non Tender, Gravid Neurological: Deep Tendon Reflexes 2+/4 and Symmetrical, Neuro grossly intact. 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 Negative for: Vulvar lesions Estimated gestational size: Appropriate for gestational size Presentation: Cephalic Assessment/Plan All Active Problems (Last Reviewed 12/08/17 @ 10:40 by Sirisha Al) Fall (Acute) False labor (Acute) headache in third trimester (Acute) History of prior with IUGR (Acute) GBS (group B streptococcus) UTI complicating (Acute) Segmental and somatic dysfunction of sacral region (Acute) Segmental and somatic dysfunction of lumbar region (Acute) Contraception management (Acute) Cavernous hemangioma (Acute) History of delivery, currently (Acute) Supervision of high-risk (Acute) This is a 22 year-old, at 39 weeks gestational age FOR rltcs AND btl plan RLTCS BTL, spinal anesthesia
--- NOTE | 2017-12-11 07:35 | HP.PCM_ITS ---
- Problem List (1) headache in third trimester Status: Acute (2) History of prior with IUGR Status: Acute Comment: growth us 3rd trimester (3) GBS (group B streptococcus) UTI complicating Status: Acute Qualifiers: Comment: treated (4) Cavernous hemangioma Status: Acute (5) History of delivery, currently Status: Acute Comment: plans repeat and BTL- Title 19 signed. (6) Supervision of high-risk Status: Acute Qualifiers: Comment: PRR ANGELA 12/12/17; Girl: Lesia; PC loli boyfriend joel [facility]THONY [facility] History Date of Admission: 12/11/17 Final ANGELA: 12/12/17 Final ANGLEA Source: US <20 weeks Gestational age: 39 Weeks and 6 Days History of this : This is a 22 year-old, , at 39 weeks gestational age. 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 HSV (herpes simplex virus) infection B00.9 Post depression F53 Surgical History: Surgical History (Last Reviewed 12/08/17 @ 10:40 by Sirisha Al) delivery delivered O82 Allergies amoxicillin [Amoxicillin] Allergy (Verified 12/08/17 10:39) Rash clarithromycin [From Biaxin] Allergy (Verified 12/08/17 10:39) Rash soy Allergy (Verified 12/08/17 10:39) Anaphylaxis lactose Adverse Reaction (Verified 12/08/17 10:39) Upset Stomach latex Adverse Reaction (Verified 12/08/17 10:39) Rash Home Medications: Home Medications Gaf554/FA/Omega3/Dha/Fish Oil [ Gummies] 2 ea PO DAILY 11/17/17 breast pump See Dose Instructions .ROUTE .MEDSUPPLY #1 ea 11/23/17 Smoking Status: Former smoker Number of Fetus(es): 1 Heart Tracin History Past Pregnancies: Past Pregnancies Delivery Date Name GA/Weeks Outcome Route Weight Infant Gender Labor Length Anesthesia Delivery Location Provider FOB 2017 [facility]I 39 [facility] Labs: [facility] Labs & Results 12/11/17 12/11/17 05:45 05:45 WBC 8.9 RBC 3.97 L Hgb 12.4 Hct 35.8 L MCV 90.2 MCH 31.2 MCHC 34.6 RDW 13.4 RDW Differential 43.2 Plt Count 165 MPV 10.8 Immature Gran % (Auto) 0.400 Neut % (Auto) 65.3 Lymph % (Auto) 23.0 [place] % (Auto) 9.9 Eos % (Auto) 1.3 Baso % (Auto) 0.1 Absolute Neuts (auto) 5.8 Absolute Lymphs (auto) 2.05 Total Counted Not Reportable Blood Type B POSITIVE Antibody Screen NEGATIVE Course Did the patient receive Yes care? Labs Blood Type: B RH: POSITIVE RPR/VDRL/Syphilis Nonreactive Rubella status Immune HbSAg Negative Date Done: 05/06/17 Chlamydia Negative Gonorrhea Negative HIV/AIDS Non-Reactive Group B Strep: Positive Current Obstetrical History Gestational Diabetes No Incompetent Cervix No Infertility No IUGR No Macrosomia No Hypertension/Pre-eclampsia No Placenta Previa/Abruption No PTL/PROM No Uterine anomaly No Oligohydramnios No Polyhydramnios No Multiple gestation No Past Medical History Asthma No Diabetes No Hypertension No Heart disease No Mitral valve prolapse No Neurologic/Seizure disorder/ Yes: cavernous hemangimoa in brain Migraines Kidney disease No Liver disease No Varicosities No Clotting disorders/Hx of DVT No Thyroid Dysfunction No Other medical diseases No Psychiatric disorders Yes: ADD Major trauma No Abnormal PAP smear No Sleep apnea No Mammogram in the last 2 years No Social History Marital Status: SINGLE Alleged father Marbin Hx Smoking Yes Smoking Status Former smoker Expected Delivery Method: Scheduled Section Review of Systems Constitutional: Denies: Fever, Malaise Eyes: Denies: Blurred vision, Vision Change HEENT: Denies: Head Aches, Visual Changes Cardiovascular: Denies: Chest Pain, Palpitations Respiratory: Denies: Cough, Shortness of Breath, Wheezing Gastrointestinal: Denies: Abdominal Pain, Diarrhea, Nausea, Vomiting Genitourinary: Denies: Dysuria, Hematuria Musculoskeletal: Denies: Joint Pain, Muscle pain Skin: Denies: Lesions, Rash Neurological: Denies: Blurred vision, Focal weakness, Headaches Psychiatric: Denies: Anxiety, Depression Endocrine: Denies: Heat/ Cold Intolerance Hematologic/ Lymphatic: Denies: Easy Bruising, Easy Bleeding Physical Exam General: Alert, Cooperative, No apparent distress HEENT: Atraumatic, Normocephalic. Negative for: Thyromegaly, Lymphadenopathy Cardiovascular: Regular rate Lungs: Normal air movement Abdomen: Soft, Non Tender, Gravid Neurological: Deep Tendon Reflexes 2+/4 and Symmetrical, Neuro grossly intact. 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 Negative for: Vulvar lesions Estimated gestational size: Appropriate for gestational size Presentation: Cephalic Assessment/Plan All Active Problems (Last Reviewed 12/08/17 @ 10:40 by Sirisha Al) Fall (Acute) False labor (Acute) headache in third trimester (Acute) History of prior with IUGR (Acute) GBS (group B streptococcus) UTI complicating (Acute) Segmental and somatic dysfunction of sacral region (Acute) Segmental and somatic dysfunction of lumbar region (Acute) Contraception management (Acute) Cavernous hemangioma (Acute) History of delivery, currently (Acute) Supervision of high-risk (Acute) This is a 22 year-old, at 39 weeks gestational age FOR rltcs AND btl plan RLTCS BTL, spinal anesthesia
[2017-12-11] MEDS: Oxytocin 30 units/NS 500 ml 30 UNITS/500 ML IV.SOLN 167 UNITS IV (07:52)
--- NOTE | 2017-12-11 09:33 | PCM.OPRPT ---
Problem List (1) headache in third trimester Status: Acute (2) History of prior with IUGR Status: Acute Comment: growth us 3rd trimester (3) GBS (group B streptococcus) UTI complicating Status: Acute Qualifiers: Comment: treated (4) Cavernous hemangioma Status: Acute (5) History of delivery, currently Status: Acute Comment: plans repeat and BTL- Title 19 signed. (6) Supervision of high-risk Status: Acute Qualifiers: Comment: PRR ANGELA 12/12/17; Girl: Lesia; PC loli boyfriend joel T[facility] Report of Operation Date of Procedure: 12/11/17 Pre-Operative Diagnosis: planned rltcs Post-Operative Diagnosis: same Surgery/Procedure Performed:: rltcs btl Description of Surgical Findings:: nl uterus tubes ovaries minimal abdominal wall sacr tissue chief strategy officer: Alvina Daniels Type of Anesthesia:: Spinal Specimen's removed: poc Drains: ceja Estimated Blood Loss (mL): 600 Fluids Replaced: crystalloid Description of Procedure: The patient is a at 39w6d presented for repeat . Spinal anesthesia was placed without difficulty. Ceja catheter was placed. The patient was placed in the dorsal supine position with leftward tilt. Patient was prepped and draped in the normal sterile fashion. Pfannenstiel skin incision was made with the scalpel and carried through to the underlying layer of fascia with the scalpel. Fascia was nicked in the midline and the incision extended laterally. The rectus bellies were dissected off superiorly and inferiorly with out complication both sharply and bluntly. The peritoneum was entered digitally. The incision was stretched and a low transverse uterine incision was made with the scalpel. The 's head was delivered atraumatically followed by the anterior and posterior shoulders without complication the rest of the delivered. The cord was clamped and cut and the infant was handed off to awaiting nurse. The placenta was delivered spontaneously immediately following and was noted to be intact and have a three-vessel cord. The uterus was exteriorized cleared of all clots and debris, and the incision was closed in a single layer closure using #1 Monocryl. bilateral tubal ligation was performed via the [place] method without complication removing bilateral sections fo the fallopian tubes. The uterus was returned to the maternal abdomen and gutters were cleared of all clots and debris. The ovaries and fallopian tubes were noted to be within normal limits. The peritoneum was closed with 3-0 Monocryl in a running fashion. Fascia was closed with 0 PDS in a running fashion. Subcutaneous tissue was copiously irrigated and the skin was closed with 3-0 Monocryl in a subcuticular fashion. Mepilex dressing were applied without complication. Patient was taken to recovery in stable condition. Grafts/Implants Used: none - Complications none
--- NOTE | 2017-12-11 09:36 | OP.PCM_ITS ---
Problem List (1) headache in third trimester Status: Acute (2) History of prior with IUGR Status: Acute Comment: growth us 3rd trimester (3) GBS (group B streptococcus) UTI complicating Status: Acute Qualifiers: Comment: treated (4) Cavernous hemangioma Status: Acute (5) History of delivery, currently Status: Acute Comment: plans repeat and BTL- Title 19 signed. (6) Supervision of high-risk Status: Acute Qualifiers: Comment: PRR ANGELA 12/12/17; Girl: Lesia; PC loli boyfriend joel [facility]OC [facility] Report of Operation Date of Procedure: 12/11/17 Pre-Operative Diagnosis: planned rltcs Post-Operative Diagnosis: same Surgery/Procedure Performed:: rltcs btl Description of Surgical Findings:: nl uterus tubes ovaries minimal abdominal wall sacr tissue channel business manager: Alvina Daniels Type of Anesthesia:: Spinal Specimen's removed: poc Drains: ceja Estimated Blood Loss (mL): 600 Fluids Replaced: crystalloid Description of Procedure: The patient is a at 39w6d presented for repeat . Spinal anesthesia was placed without difficulty. Ceja catheter was placed. The patient was placed in the dorsal supine position with leftward tilt. Patient was prepped and draped in the normal sterile fashion. Pfannenstiel skin incision was made with the scalpel and carried through to the underlying layer of fascia with the scalpel. Fascia was nicked in the midline and the incision extended laterally. The rectus bellies were dissected off superiorly and inferiorly with out complication both sharply and bluntly. The peritoneum was entered digitally. The incision was stretched and a low transverse uterine incision was made with the scalpel. The 's head was delivered atraumatically followed by the anterior and posterior shoulders without complication the rest of the delivered. The cord was clamped and cut and the infant was handed off to awaiting nurse. The placenta was delivered spontaneously immediately following and was noted to be intact and have a three- vessel cord. The uterus was exteriorized cleared of all clots and debris, and the incision was closed in a single layer closure using #1 Monocryl. bilateral tubal ligation was performed via the parkland method without complication removing bilateral sections fo the fallopian tubes. The uterus was returned to the maternal abdomen and gutters were cleared of all clots and debris. The ovaries and fallopian tubes were noted to be within normal limits. The peritoneum was closed with 3-0 Monocryl in a running fashion. Fascia was closed with 0 PDS in a running fashion. Subcutaneous tissue was copiously irrigated and the skin was closed with 3-0 Monocryl in a subcuticular fashion. Mepilex dressing were applied without complication. Patient was taken to recovery in stable condition. Grafts/Implants Used: none - Complications none
[2017-12-11] MEDS: proMETHazine 25 MG/ML Syringe 12.5 MG IV (09:44)
[2017-12-11] MEDS: Lactated Ringers 1,000 ML 100 ML IV (11:31)
[2017-12-11] MEDS: Ketorolac 30 MG/ML Syringe IV ×2 (13:43→19:46)
--- NOTE | 2017-12-11 16:00 | CHAPLAIN ---
Type of Pastoral Visit _x__ Initial Visit ___ Follow-up Visit ___ On-call Visit ___ General Patient Visit ___ Spiritual Assessment ___ Family Conference ___ Bereavement ___ Rapid Response ___ Code Blue ___ Other (describe below) Pastoral Care Referral From _x__ Patient ___ Family ___ Nurse ___ Physician ___ Food Technician ___ Game Moderator ___ Other (describe below) Sacrament/Intervention _x__ Active listening ___ Anointing ___ Zoroastrianism ___ Bereavement ___ Communion ___ Ninoska exploration ___ ___ Life review _x__ Prayer ___ Reconciliation ___ Sacrament of Sick _x__ Supportive presence ___ Wedding ___ Other (describe below) Pastoral Comments patient is known to site leasing agent and she had notified site leasing agent that she was delivering child here at the hospital; stop in to see new baby and offer a prayer
[2017-12-11] MEDS: Sodium Chloride 0.65% 1 SPRAY SPRAY.BTL NASAL ×2 (18:37→19:45)
[2017-12-11] MEDS: guaiFENesin 1,200 MG Tablet 1200 MG PO (18:37)
[2017-12-11] MEDS: 0.9% Saline Lock 10 ML Syringe IV (19:46)
[2017-12-12] VITALS (8 sets, daily range): BP systolic 94–115; BP diastolic 53–67; PULSE 82–108; RESP 16–18; TEMP 36–36.7; O2SAT 95–100
[2017-12-12] MEDS: Ketorolac 30 MG/ML Syringe IV ×4 (02:14→20:54)
[2017-12-12] MEDS: 0.9% Saline Lock 10 ML Syringe IV ×4 (02:14→20:55)
--- NOTE | 2017-12-12 05:14 | NURSING ---
2 liters of O2 via nasal cannula applied to patient d/t pulse oximetry level between 91-94%
[2017-12-12 06:43] LABS: Hematocrit 32.4 % (37-47); Hemoglobin 10.9 g/dl (12.0-15.0); Mean Corp Hgb Conc 33.6 g/gl (32-36); Mean Corpuscular Hgb 31.3 pg (27.0-32.0); Mean Corpuscular Volume 93.1 fL (81-99); Mean Platelet Vol. 10.4 fl (6.2-12.0); Platelet Count 127 K/mm3 (150-450); RBC Distribution Width CV 13.7 % (11.6-14.6); RBC Distribution Width SD 45.1 fl (35.1-43.9); Red Blood Count 3.48 M/mm3 (4.2-5.4); White Blood Count 8.3 K/mm3 (4.4-11.0)
[2017-12-12 06:46] LABS: Scan Indicated on CBC? Y/N NO
--- NOTE | 2017-12-12 07:42 | PCM.PN.OB ---
Subjective: doing well co congestion and uri symptoms, pain increased this morning - Physical Exam General: Alert, Oriented x3 Cardiovascular: Regular rate Vital Signs Temp Pulse Resp BP Pulse Ox 96.8 F L 87 18 98/56 L 96 12/12/17 03:50 12/12/17 03:50 12/12/17 03:50 12/12/17 03:50 12/12/17 05:14 Oxygen Flow Rate (L/min) 2 Oxygen Delivery Method Nasal Cannula Weight: 220 lb 10.923 oz Body Mass Index (BMI) 41.7 Intake and Output for Last 24 Hours 12/10/17 12/11/17 12/12/17 23:59 23:59 23:59 Intake Total 4882 / 4882 Output Total 1150 / 1150 1200 / 1200 Balance 3732 / 3732 -1200 / -1200 Laboratory Tests Past 24 Hrs 12/12/17 06:25 WBC 8.3 RBC 3.48 L Hgb 10.9 L Hct 32.4 L MCV 93.1 MCH 31.3 MCHC 33.6 RDW 13.7 RDW Differential 45.1 H Plt Count 127 L MPV 10.4 Medical Necessity - Tobacco Use Smoking Status: Former smoker Assessment/Plan All Active Problems (Last Reviewed 12/08/17 @ 10:40 by Sirisha Al) Fall (Acute) False labor (Acute) headache in third trimester (Acute) History of prior with IUGR (Acute) GBS (group B streptococcus) UTI complicating (Acute) Segmental and somatic dysfunction of sacral region (Acute) Segmental and somatic dysfunction of lumbar region (Acute) Contraception management (Acute) Cavernous hemangioma (Acute) History of delivery, currently (Acute) Supervision of high-risk (Acute) s/p RLTCS and BTL routine care, ordered uri medications
[2017-12-12] MEDS: oxyCODONE 5 MG Tablet PO ×3 (07:44→18:33)
[2017-12-12] MEDS: guaiFENesin Dm 10 ML UDC PO ×2 (09:11→18:33)
--- NOTE | 2017-12-12 13:29 | CASEMGMT ---
Social Work Note See attached assessment. Introduced self and role at [facility]. The pt reports to live with her significant other, Ronan, and their 18 month old son, Chuck. MAXIME is presently unemployed, but Ronan works. Reports to be financially stable. Utilizes WIC, Medicaid and Food [place]. Reports to have all necessary supplies and denies additional needs at this time. States that they have adequate supports among family that can assist if needed. MOB reports a hx of ppd. States that she met with her PCP last time and was placed on Zoloft short-term, but did not take the entire course as she did not like how it made her feel. Reviewed symptoms of PPD and encouraged to seek medical attention if they persist after this delivery. Encourage MOB to inform her physician that she did not react to the Zoloft well and review alternative options. MOB has not been to counseling in the past, but was educated to area resources. No hx of substance abuse. No hx of CSB involvement. MOB made aware that SW is available if needs arise. Plan: Home with no anticipated needs. Kiat Robb, ANIMAL RIDES MANAGER, AUTOMOTIVE GENERAL SALES MANAGER
[2017-12-13 02:50] VITALS: BP 104/65; PULSE 79; RESP 16; TEMP 36.2
[2017-12-13] MEDS: guaiFENesin Dm 10 ML UDC PO ×2 (02:52→23:51)
[2017-12-13] MEDS: Ketorolac 30 MG/ML Syringe IV ×2 (02:52→09:10)
[2017-12-13] MEDS: 0.9% Saline Lock 10 ML Syringe IV ×2 (02:53→09:09)
[2017-12-13 08:00] VITALS: BP 103/64; PULSE 82; RESP 16; TEMP 36.2
[2017-12-13] MEDS: oxyCODONE 5 MG Tablet PO ×3 (08:11→23:50)
[2017-12-13] MEDS: Prenatal Vits Tablet 2 TABLET PO (11:37)
--- NOTE | 2017-12-13 13:15 | PCM.PN.OB ---
Subjective: doing well improving overall, pain controlled - Physical Exam General: Alert, Oriented x3 Abdomen: - - incision: c/d/i Vital Signs Temp Pulse Resp BP Pulse Ox 97.2 F L 82 16 103/64 97 12/13/17 08:00 12/13/17 08:00 12/13/17 08:00 12/13/17 08:00 12/12/17 19:50 Oxygen Flow Rate (L/min) 2 Oxygen Delivery Method Room Air Weight: 220 lb 10.923 oz Body Mass Index (BMI) 41.7 Intake and Output for Last 24 Hours 12/11/17 12/12/17 12/13/17 23:59 23:59 23:59 Intake Total 4882 / 4882 Output Total 1150 / 1150 1600 / 1600 Balance 3732 / 3732 -1600 / -1600 Medical Necessity - Tobacco Use Smoking Status: Former smoker Assessment/Plan All Active Problems (Last Reviewed 12/08/17 @ 10:40 by Sirisha Al) Fall (Acute) False labor (Acute) headache in third trimester (Acute) History of prior with IUGR (Acute) GBS (group B streptococcus) UTI complicating (Acute) Segmental and somatic dysfunction of sacral region (Acute) Segmental and somatic dysfunction of lumbar region (Acute) Contraception management (Acute) Cavernous hemangioma (Acute) History of delivery, currently (Acute) Supervision of high-risk (Acute) s/p RLTCS and BTL routine care, ordered uri medications
[2017-12-13 14:00] VITALS: BP 113/59; PULSE 91; RESP 16; TEMP 36.7
[2017-12-13] MEDS: Acetaminophen 500 MG Tablet 1000 MG PO (14:13)
[2017-12-13 20:30] VITALS: BP 103/63; PULSE 94; RESP 18; TEMP 36.5
[2017-12-14 02:00] VITALS: BP 108/69; PULSE 80; RESP 18; TEMP 36.8
[2017-12-14] MEDS: oxyCODONE 5 MG Tablet PO (07:48)
--- NOTE | 2017-12-14 07:58 | PCM.PN.OB ---
Subjective: No CP, SOB, nausea. Ambulating, urinating. Passing flatus. - Physical Exam General: Alert, Oriented x3 Abdomen: Soft, - - FF below U. Minimal tenderness. Slightly distended/passing flatus. Vital Signs Temp Pulse Resp BP Pulse Ox 98.2 F 80 18 108/69 97 12/14/17 02:00 12/14/17 02:00 12/14/17 02:00 12/14/17 02:00 12/12/17 19:50 Oxygen Flow Rate (L/min) 2 Oxygen Delivery Method Room Air Weight: 220 lb 10.923 oz Body Mass Index (BMI) 41.7 Intake and Output for Last 24 Hours 12/12/17 12/13/17 12/14/17 23:59 23:59 23:59 Output Total 1600 / 1600 Balance -1600 / -1600 Medical Necessity - Tobacco Use Smoking Status: Former smoker Assessment/Plan All Active Problems (Last Reviewed 12/08/17 @ 10:40 by Sirisha Al) Fall (Acute) False labor (Acute) headache in third trimester (Acute) History of prior with IUGR (Acute) GBS (group B streptococcus) UTI complicating (Acute) Segmental and somatic dysfunction of sacral region (Acute) Segmental and somatic dysfunction of lumbar region (Acute) Contraception management (Acute) Cavernous hemangioma (Acute) History of delivery, currently (Acute) Supervision of high-risk (Acute) R CS, BTO POD#3: Doing well. : some difficulty with engorgement-will work with web consultant. Pain controlled. Home today.
--- NOTE | 2017-12-14 08:03 | PN.OBGYN_ITS ---
Subjective: No CP, SOB, nausea. Ambulating, urinating. Passing flatus. - Physical Exam General: Alert, Oriented x3 Abdomen: Soft, - - FF below U. Minimal tenderness. Slightly distended/passing flatus. Vital Signs Temp Pulse Resp BP Pulse Ox 98.2 F 80 18 108/69 97 12/14/17 02:00 12/14/17 02:00 12/14/17 02:00 12/14/17 02:00 12/12/17 19:50 Oxygen Flow Rate (L/min) 2 Oxygen Delivery Method Room Air Weight: 220 lb 10.923 oz Body Mass Index (BMI) 41.7 Intake and Output for Last 24 Hours 12/12/17 12/13/17 12/14/17 23:59 23:59 23:59 Output Total 1600 / 1600 Balance -1600 / -1600 Medical Necessity - Tobacco Use Smoking Status: Former smoker Assessment/Plan All Active Problems (Last Reviewed 12/08/17 @ 10:40 by Sirisha Al) Fall (Acute) False labor (Acute) headache in third trimester (Acute) History of prior with IUGR (Acute) GBS (group B streptococcus) UTI complicating (Acute) Segmental and somatic dysfunction of sacral region (Acute) Segmental and somatic dysfunction of lumbar region (Acute) Contraception management (Acute) Cavernous hemangioma (Acute) History of delivery, currently (Acute) Supervision of high-risk (Acute) R CS, BTO POD#3: Doing well. : some difficulty with engorgement- will work with medical consultant. Pain controlled. Home today.
[2017-12-14] MEDS: guaiFENesin Dm 10 ML UDC PO (09:46)
[2017-12-14 09:48] VITALS: BP 113/65; PULSE 92; RESP 16; TEMP 37; O2SAT 96
--- NOTE | 2017-12-14 10:12 | PCM.DCCSEC ---
Additional Instructions: If you experience any of the following, contact your healthcare provider. Bleeding that soaks a pad every hour for 2 hours Fever 100.4 or higher Unrelieved incision or abdominal pain Swelling, redness, discharge or bleeding from your incision or episiotomy site Your incision begins to separate Problems urinating (including inability to urinate or burning while urinating). Visual changes Severe headache Flu-like symptoms Pain or redness in one of both of your breasts Pain, warmth, tenderness or swelling in your legs, especially the calf area Frequent nausea and vomiting Symptoms of depression or anxiety If you experience any of the following, call 911 or go to the nearest Emergency Room. Chest pain Problems breathing Seizure activity Partial or complete paralysis of a body part, slurred speech, weakness or drooping of the face, or a sudden inability to walk or hold your balance Allergies/Adverse Reactions: Allergies amoxicillin [Amoxicillin] Allergy (Verified 12/08/17 10:39) Rash clarithromycin [From Biaxin] Allergy (Verified 12/08/17 10:39) Rash soy Allergy (Verified 12/08/17 10:39) Anaphylaxis lactose Adverse Reaction (Verified 12/08/17 10:39) Upset Stomach latex Adverse Reaction (Verified 12/08/17 10:39) Rash Medications to take at Discharge Its372/FA/Omega3/Dha/Fish Oil [ Gummies] 2 ea PO DAILY 11/17/17 breast pump See Dose Instructions .ROUTE .MEDSUPPLY #1 ea 11/23/17 Oxycodone HCl/Acetaminophen [Percocet 5/325] 1 - 2 tablet PO Q4H PRN PRN 7 Days #30 tablet 12/14/17 The following prescriptions were given: Oxycodone HCl/Acetaminophen [Percocet 5/325] 1 - 2 tablet PO Q4H PRN PRN 7 Days #30 tablet PRN Reason: Pain Follow-Up: Call to make an appointment with your doctor for an incision check in 1-2 weeks. You will also need a 6 week post- follow up appointment. Test results from this visit will be discussed in further detail at your follow-up appointment, if applicable. Primary Care Physician: Sherri Brown MD [Primary Care Provider] -
--- NOTE | 2017-12-14 10:13 | DCINST_ITS ---
Additional Instructions: If you experience any of the following, contact your healthcare provider. * Bleeding that soaks a pad every hour for 2 hours * Fever 100.4 or higher * Unrelieved incision or abdominal pain * Swelling, redness, discharge or bleeding from your incision or episiotomy site * Your incision begins to separate * Problems urinating (including inability to urinate or burning while urinating) . * Visual changes * Severe headache * Flu-like symptoms * Pain or redness in one of both of your breasts * Pain, warmth, tenderness or swelling in your legs, especially the calf area * Frequent nausea and vomiting * Symptoms of depression or anxiety If you experience any of the following, call 911 or go to the nearest Emergency Room. * Chest pain * Problems breathing * Seizure activity * Partial or complete paralysis of a body part, slurred speech, weakness or drooping of the face, or a sudden inability to walk or hold your balance Allergies/Adverse Reactions: Allergies amoxicillin [Amoxicillin] Allergy (Verified 12/08/17 10:39) Rash clarithromycin [From Biaxin] Allergy (Verified 12/08/17 10:39) Rash soy Allergy (Verified 12/08/17 10:39) Anaphylaxis lactose Adverse Reaction (Verified 12/08/17 10:39) Upset Stomach latex Adverse Reaction (Verified 12/08/17 10:39) Rash Medications to take at Discharge Ujb392/FA/Omega3/Dha/Fish Oil [ Gummies] 2 ea PO DAILY 11/17/17 breast pump See Dose Instructions .ROUTE .MEDSUPPLY #1 ea 11/23/17 Oxycodone HCl/Acetaminophen [Percocet 5/325] 1 - 2 tablet PO Q4H PRN PRN 7 Days #30 tablet 12/14/17 The following prescriptions were given: Oxycodone HCl/Acetaminophen [Percocet 5/325] 1 - 2 tablet PO Q4H PRN PRN 7 Days #30 tablet PRN Reason: Pain Follow-Up: Call to make an appointment with your doctor for an incision check in 1-2 weeks. You will also need a 6 week post- follow up appointment. Test results from this visit will be discussed in further detail at your follow- up appointment, if applicable. Primary Care Physician: Sherri Brown MD [Primary Care Provider] -
[2017-12-14] MEDS: Prenatal Vits Tablet 2 TABLET PO (12:44)
[2017-12-14 12:53] VITALS: BP 117/58; PULSE 96; RESP 18; TEMP 36.4; O2SAT 97
[2017-12-15 15:48] LABS: Pathology Specimen OB SEE PATHOLOGY REPORT
== END 2017-12-14 14:30 | disposition home or self-care (01) | DRG 371 ==
PROVIDERS: Admitting Provider Obstetrics & Gynecology; Family Provider Internal Medicine; PCP Internal Medicine; Visit Provider Obstetrics & Gynecology
PROC: 10D00Z1 Extraction of Products of Conception, Low, Open Approach (ICD-10-PCS; CPT 59514; principal; 2017-12-11 07:15)
DX: O34.211 Maternal care for low transverse scar from previous cesarean delivery (principal); Z3A.39 39 weeks gestation of pregnancy; Z37.0 Single live birth; O75.89 Other specified complications of labor and delivery; D18.02 Hemangioma of intracranial structures; O90.89 Other complications of the puerperium, not elsewhere classified; J06.9 Acute upper respiratory infection, unspecified; Z87.891 Personal history of nicotine dependence
CPT/HCPCS: 85025; 85027; 86850; 86900; 88302; 99218; J7120; A4216; G0378; J2405

== ENCOUNTER → 2017-12-25 13:22 | Outpatient (CLI) | payer MEDICAID, SELFPAY ==
--- NOTE | 2017-12-25 13:24 | VDLE_ITS ---
Reason For Study: LEG PAIN RIGHT LEFT GSV is normal. CFV is compressible, spontaneous, phasic, CFV is compressible, spontaneous, phasic, competent, and demonstrates normal competent and demonstrates normal augmentation. augmentation. FV is compressible, spontaneous, phasic, competent and demonstrates normal augmentation. POP V is compressible, spontaneous, phasic, competent and demonstrates normal augmentation. T/P Trunk is compressible. PTV is compressible. RT PerV is compressible. Procedure Exam performed in department. A preliminary report was called and/or faxed to Dr. Moran. Interpretation Summary Deep veins of the right lower extremity are patent and compressible segmentally. There is no evidence of right lower extremity deep vein thrombosis. Valvular competence appears intact within the proximal deep venous system on the right . The right greater saphenous vein appears patent and compressible segmentally. Ordering Physician: Tanesha Mroan Referring Physician: Tanesha Moran Performed By: Zamzam Ramirez RVT
== END ==
PROVIDERS: Family Provider Internal Medicine; PCP Internal Medicine; Visit Provider Obstetrics & Gynecology
DX: M79.604 Pain in right leg (principal)
CPT/HCPCS: 93971

== ENCOUNTER 2018-01-10 13:20 | Outpatient (CLI) | payer MEDICAID, SELFPAY | END 2018-01-10 13:50 | disposition home or self-care (01) | LOC: WPOUT 13:37 → WP 13:39 | PROVIDERS: Family Provider Internal Medicine; PCP Internal Medicine; Visit Provider Obstetrics & Gynecology | DX: O92.79 Other disorders of lactation (principal) | CPT/HCPCS: 96152 ==

== ENCOUNTER → 2018-01-26 19:21 | Outpatient (CLI) | payer MEDICAID, SELFPAY ==
[2018-02-02 10:13] LABS: HPV Reflexed? NOT INDICATED
== END ==
PROVIDERS: Family Provider Internal Medicine; PCP Internal Medicine; Visit Provider Obstetrics & Gynecology
DX: Z12.4 Encounter for screening for malignant neoplasm of cervix (principal)
CPT/HCPCS: 88175; G0145

== ENCOUNTER 2018-02-08 00:55 | Emergency (ER) | payer MEDICAID, SELFPAY ==
[2018-02-08 00:58] VITALS: BP 108/60; PULSE 90; RESP 18; TEMP 36.6; O2SAT 98; BMI 40.2
--- NOTE | 2018-02-08 02:07 | ED.DCSUM_ITS ---
- ER Visit Summary Date of Service: 02/08/18 Chief Complaint: Abnormal breathing History of Present Illness: The patient is a 22 F here with significant other by EMS reported abnormal breathing after going to bed at 11 PM. States after 30 minutes he noticed patient taken a gas of care and then stiffening up with her arms. There is no tonic-clonic activities. There is no cyanosis. States she was not quite herself until she went in the [facility]. They carried her down into the ambulance. History of angioma with a bleed in the past. She does complain of headache on the left side however angioma is on the right. No falls or head injuries recently. No nausea or vomiting. States mild shortness of breath. No cough. No tobacco history. Currently states breathing normal, states his upcoming EEG by her neurologist Dr. Bruce on the . Physical Examination: General: Alert and oriented ?3, no acute distress HEENT: Normocephalic, atraumatic. Moist mucosa membranes Neck: supple, nontender. No meningismus Cardiovascular: Regular rate and rhythm, no murmurs Respiratory: Normal breath sounds, symmetric, no distress Abdomen: Soft, nontender, nondistended Extremities: Nontender, no edema, pulses intact ?4 Neuro: no focal neurological deficits. Cranial nerves II through XII intact. Test Results: CT brain: Ill-defined region left temporal lobe stable chest x-ray : No acute process Emergency Department Course and Treatment: Patient no focal neurologic deficits. Complains of headache with history of angioma, CT head obtained negative. Chest x-ray due to her reported dyspnea negative. Pulse ox stable. No distress. Reevaluation headache was resolving. She is reassured. She will follow-up as an outpatient. Treatment Plan: [] Disposition: Discharge Impression: 1. Cephalgia 2. History of brain angioma 3. Dyspnea This note was generated with sourceasy dictation software. It may contain incorrect words, spelling, and punctuation that were not noted in review of the chart prior to signing ED Disposition - Plan for ED Patient: Disposition: Home or Assisted Living Chief Complaint: Shortness of Breath Diagnosis: Cephalgia, angioma brain, Dyspnea and respiratory abnormalities Instructions: Understanding Headache Pain, ED Dyspnea Shortness of Breath Referrals: Sherri Brown MD [Primary Care Provider] - 3-5 Days if not improving
[2018-02-08 03:52] VITALS: RESP 14
--- NOTE | 2018-02-09 10:59 | CM.ED ---
ED CALLBACK: Follow-up call placed to patient. Patient states, My whole body hurts. She states that she has been on the phone with my neurologist all morning. Patient states she's signed medical release for her CT scan results to be sent to neurology office. Patient is waiting to hear back from neurologist at this time. Patient denies any additional needs at this time from or [facility].
== END 2018-02-08 03:54 | disposition home or self-care (01) ==
PROVIDERS: Emergency Provider Emergency Medicine; Family Provider Internal Medicine; PCP Internal Medicine
DX: R51 Headache (principal); R06.00 Dyspnea, unspecified; D18.02 Hemangioma of intracranial structures; Z79.899 Other long term (current) drug therapy
CPT/HCPCS: 70450; 71046; 99284

== ENCOUNTER 2018-03-25 14:00 | Emergency (ER) | payer MEDICAID, SELFPAY ==
[2018-03-25 14:01] VITALS: BP 99/64; PULSE 79; RESP 16; TEMP 36.9; O2SAT 97; BMI 37.8
--- NOTE | 2018-03-25 14:10 | US_ITS ---
STUDY: ULTRASOUND OF THE FEMALE PELVIS - COMPLETE REASON FOR EXAM: Female, 22 years old. Pelvic pain, 3 months , status post tubal ligation. TECHNIQUE: Transvaginal. COMPARISON: None. FINDINGS: Uterus is anteverted in the midline, measuring 9.2 x 5.1 x 3.9 cm. Normal myometrial echotexture. scar. Admission thickness is 4.8 mm. There is fluid in the endometrial canal, and fluid in the endocervical canal. Fluid abuts the undersurface of the scar. The cervix appears otherwise normal. The right ovary measures 34 x 20 x 27 mm and the left ovary measures 23 x 25 x 26 m. Each exhibits normal echotexture and vascularity. Each ovary contains multiple small physiologic follicles in a pattern that could reflect underlying polycystic ovary syndrome. There is no adnexal mass, suspicious cyst or free fluid. There is moderate echolucent free fluid in the pelvic cul-de-sac. US/Transvaginal Non- IMPRESSION: Moderate free fluid in the cul-de-sac. Fluid mildly distending the endometrial canal and traversing the endocervical canal. No visible retained products. Multi-follicular features of each ovary may reflect the presence of polycystic ovary syndrome. Electronically Signed: Frankie Meier, at 15:32 EDT Tel , Service support ,
--- NOTE | 2018-03-25 14:14 | ED.DCSUM_ITS ---
- ER Visit Summary Date of Service: 03/25/18 Chief Complaint: [] pelvic pain for a week 3 months History of Present Illness: The patient is a 22 F [] 3 months C- section delivery uncomplicated. She indicates she is been having sharp stabbing pains over the suprapubic region that radiates to the right and left side of her pelvis for about a week nothing makes the pain better or worse. She has had no vomiting fever no UTI symptoms bowel habits are normal, her his incision feels fine, she was seen yesterday by her primary care doctor's order vaginal ultrasound which has not been done yet, she did not contact her [facility] office. She is otherwise able to eat and drink and again urinary and bowel habits are normal the pain is paroxysmal nothing really triggers it Physical Examination: [] Is resting comfortably in the bed her vital signs are unremarkable she points directly to the suprapubic area and then draws a line from the mid suprapubic area to the left and right lower pelvic regions head neck chest unremarkable the abdomen is soft there is no rebound guarding organomegaly when I palpate her lower pelvic area right lower quadrant suprapubic left lower quadrant there is no area of tenderness, her incision is intact there is no signs of infection warmth mass rebound or organomegaly Pelvic exam with nurse scuba dive training instructor was declined by the patient Test Results: [] Emergency Department Course and Treatment: [] In all the above screening labs are obtained pelvic ultrasound will discuss the case with her fern picker The patient studies are generally unremarkable see those reports, the pelvic ultrasound shows some fluid in the cul-de-sac polycystic ovarian disease, no retained products in the uterus, Discussed all this information with her MARBLE HELPER Dr. Emmanuel Erazo who agrees she can be discharged home to follow-up with the office in the next few days, explained the above the patient she will be started on Naprosyn for the pain and to return for change in symptoms Treatment Plan: [] Disposition: [] Home stable Impression: [] Intermittent sharp pelvic pain etiology unclear, 3 months postp artum This note was generated with Boniation software. It may contain incorrect words, spelling, and punctuation that were not noted in review of the chart prior to signing ED Disposition - Plan for ED Patient: Chief Complaint: Female C/O Referrals: Sherri Brown MD [Primary Care Provider] -
[2018-03-25 14:39] LABS: Absolute Lymphocyte Count 2.76 X10^3/ul (0.83-4.51); Absolute Neutrophil Count 2.4 X10^3/uL (2.0-7.7); Basophil# 0.01 X10^3/uL; Basophil% 0.2 % (0-1); Hematocrit 38.3 % (37-47); Hemoglobin 12.8 g/dl (12.0-15.0); Lymphocyte # 2.76 X10^3/ul (4.0); Lymphocyte % 47.3 % (19-41); Mean Corp Hgb Conc 33.4 g/gl (32-36); Mean Corpuscular Hgb 28.1 pg (27.0-32.0); Monocyte# 0.67 X10^3/uL; Monocyte% 11.5 % (0-10); Neutrophil # 2.39 X10^3/uL (2.7-7.7); Neutrophil % 40.8 % (47-70); Platelet Count 153 K/mm3 (150-450); RBC Distribution Width CV 13.3 % (11.6-14.6); RBC Distribution Width SD 40.1 fl (35.1-43.9); Red Blood Count 4.56 M/mm3 (4.2-5.4); White Blood Count 5.8 K/mm3 (4.4-11.0)
[2018-03-25 14:41] LABS: POSITIVE COUNT NO; POSITIVE DIFFERENTIAL NO; POSITIVE MORPHOLOGY NO
[2018-03-25 14:50] LABS: AST(SGOT) 20 U/L (15-37); Alanine Aminotransfer ALT/SGPT 53 U/L (13-56); Albumin, Serum 3.6 g/dL (3.2-5.0); Alkaline Phosphatase 109 U/L (45-117); Anion Gap 5 (5-15); BUN 10 mg/dL (7-18); Bilirubin, Direct 0.09 mg/dL (0.00-0.30); Calcium,Total 8.6 mg/dL (8.5-10.1); Chloride 108 mmol/L (98-107); Creatinine, Serum 0.71 mg/dL (0.55-1.02); EST Glomerular Filtration Rate 106 mL/min (>60); Est Glom Filt Rate - Afr Amer 128 mL/min (>60); Globulin 3.4 g/dL (2.2-4.2); Glucose 90 mg/dL (74-106); Lipase 190 U/L (73-393); Potassium 4.2 mmol/L (3.5-5.1); Sodium Level 140 mmol/L (136-145)
[2018-03-25 14:51] LABS: Pregnancy, Serum, hCG Quali. NEGATIVE Negative (0-9 Nonpreg)
[2018-03-25 15:13] LABS: Bacteria 0 SEEN /hpf (None Seen); Mucous, Urine 0 SEEN /hpf (<or=2+); Red Blood Cells-Urine 0 SEEN /hpf (0-5); Squamous Epithelial Cells - UA 0 SEEN /hpf (5-10); White Blood Cells 0 SEEN /hpf (0-5)
[2018-03-25 15:45] LABS: Color, Urine Yellow (Yellow); Glucose, Dipstick Normal (Normal); Ketone-Dipstick Negative (Negative); Leukocyte Esterase-Dipstick Negative /ul (Negative); Nitrite-Dipstick Negative (Negative); Occult Blood-Urine Negative /ul (Negative); Protein-Dipstick Negative (Negative); Specific Gravity, Urine 1.015 (1.002-1.030); Urine Bilirubin Dipstick Negative (Negative); Urine Clarity Clear (Clear); Urine Urobilinogen Normal (Normal)
[2018-03-25] MEDS: Ondansetron 4 MG/2 ML Vial IV (15:58)
[2018-03-25] MEDS: 0.9% Normal Saline 1,000 ML 125 ML IV (15:58)
[2018-03-25 16:01] VITALS: RESP 17
--- NOTE | 2018-03-25 16:38 | ED.DEP ---
ED Disposition - Plan for ED Patient: Chief Complaint: Female C/O Instructions: ED Pelvic Pain [facility] Prescriptions: Naproxen [Naprosyn] 500 mg PO BID PRN #20 tab Referrals: Sherri Brown MD [Primary Care Provider] -
[2018-03-25 17:07] VITALS: BP 99/58; PULSE 78; RESP 17; O2SAT 98
== END 2018-03-25 17:08 | disposition home or self-care (01) ==
LOC: ED 14:26
PROVIDERS: Emergency Provider Emergency Medicine; Family Provider Internal Medicine; PCP Internal Medicine
DX: R10.2 Pelvic and perineal pain (principal); E28.2 Polycystic ovarian syndrome; Z79.899 Other long term (current) drug therapy
CPT/HCPCS: 76830; 80048; 80076; 81001; 83690; 84703; 85025; 93976; 96361; 96374; 99283; J7030; J2405

== ENCOUNTER 2018-05-02 11:00 | Emergency (ER) | payer MEDICAID, SELFPAY ==
[2018-05-02 11:00] VITALS: BP 97/60; PULSE 81; RESP 18; TEMP 36.4; O2SAT 97; BMI 35.6; BMI 38.4
[2018-05-02] MEDS: proMETHazine 25 MG/ML Syringe 12.5 MG IM (11:38)
[2018-05-02] MEDS: Ketorolac 30 MG/ML Syringe IM (11:39)
--- NOTE | 2018-05-02 12:31 | ED.VISSUMM ---
- ER Visit Summary Date of Service: 05/02/18 Chief Complaint: Headache History of Present Illness: The patient is a 23 F presenting for evaluation secondary to a headache. Patient has an underlying history of a cavernous angioma. Patient states that today she had an onset of a headache this morning that was seated with some sleep deprivation last night due to over consumption of caffeine in the evening before. Patient states that it was gradual onset is continuous and is frontal, occipital, and behind her eyes. She states that it has been associated with some photophobia and Orosz as well as nausea and vomiting. Patient reports that she tried to take medications at home for this, but was unable to keep them down. She denies any recent head injuries. She denies any numbness or weakness. She denies any fevers or skin rashes. Patient does have a history of prior headaches in the past, and states that this does feel pretty typical. Physical Examination: Vital signs: Within normal limits General: Well-nourished well-developed no acute distress Head: Normocephalic atraumatic, no temporal artery tenderness or vesicular rash noted. No sinus tenderness to percussion. Eyes: PERRLA, EOMI. Direct funduscopy shows no evidence of hemorrhage or papilledema. Neck: Supple, no lymphadenopathy, no JVD no meningismus. Negative Brudzinski, Kernig, jolt, and heel strike Cardiovascular: Heart regular rate and rhythm no murmurs Respiratory: Lung sounds clear to auscultation bilaterally no respiratory distress Abdomen: Soft, nontender Extremities: Nontender, no edema Skin: Normal color, no rash, no evidence of petechia Neuro: Alert and oriented ?4, cranial nerves II through XII intact, normal strength, sensation Test Results: None indicated Emergency Department Course and Treatment: Patient presented for evaluation secondary to headache. She does have a history of a cavernous angioma, but this was a gradual onset headache with normal neurologic exam, no papilledema, and I do not believe that CT imaging is indicated. Patient was given a dose of Toradol and Phenergan and a repeat evaluation was continuing to have a headache. She was given a dose of Imitrex. She started to have some nausea and vomiting after this. Patient was then given an IV, liter normal saline, an additional dose of IV Toradol and Zofran. Repeat evaluation showed improvement. At this point I believe the patient to be safe for discharge. She will follow-up with primary care and neurology Disposition: Discharge Impression: 1. Migraine headache This note was generated with SecureAuth dictation software. It may contain incorrect words, spelling, and punctuation that were not noted in review of the chart prior to signing ED Disposition - Plan for ED Patient: Disposition: Home or Assisted Living Chief Complaint: Headache Diagnosis: Migraine headache Instructions: ED Headache Migraine Referrals: Sherri Brown MD [Primary Care Provider] - 1-2 Days if not improving
[2018-05-02] MEDS: SUMAtriptan 6 MG/0.5 ML Vial SC (13:01)
[2018-05-02] MEDS: 0.9% Normal Saline 1,000 ML 1000 ML IV (13:21)
[2018-05-02] MEDS: Ondansetron 4 MG/2 ML Vial IV (13:21)
[2018-05-02] MEDS: Ketorolac 15 MG/ML Vial IV (13:22)
[2018-05-02 13:28] VITALS: RESP 14
[2018-05-02 14:51] VITALS: BP 108/76; PULSE 59; RESP 16; O2SAT 98
== END 2018-05-02 14:52 | disposition home or self-care (01) ==
PROVIDERS: Emergency Provider Emergency Medicine; Family Provider Internal Medicine; PCP Internal Medicine
DX: G43.909 Migraine, unspecified, not intractable, without status migrainosus (principal); D18.02 Hemangioma of intracranial structures; E66.9 Obesity, unspecified; Z79.899 Other long term (current) drug therapy
CPT/HCPCS: 96361; 96372; 96374; 96375; 99283; J7030; A4216; J2405; J3030

== ENCOUNTER 2018-05-10 18:15 | Emergency (ER) | payer MEDICAID, SELFPAY ==
[2018-05-02 11:00] VITALS: BMI 38.4
[2018-05-10 18:16] VITALS: BP 121/56; PULSE 96; RESP 15; TEMP 36.2; O2SAT 98; BMI 37.8
--- NOTE | 2018-05-10 19:29 | ED.RN ---
PT LWBS AT 1922
== END 2018-05-10 20:27 | disposition left against medical advice (07) ==
PROVIDERS: Emergency Provider Emergency Medicine; Family Provider Internal Medicine; PCP Internal Medicine
DX: R42 Dizziness and giddiness (principal)

== ENCOUNTER 2018-05-13 18:44 | Emergency (ER) | payer MEDICAID, SELFPAY ==
[2018-05-13 18:45] VITALS: BP 142/77; PULSE 89; RESP 16; TEMP 36.1; O2SAT 95; BMI 37.8
--- NOTE | 2018-05-13 19:18 | CT_ITS ---
STUDY: CT BRAIN WITHOUT CONTRAST REASON FOR EXAM: Female, 23 years old. Headache. Cavernous angioma. Seizures. RADIATION DOSAGE (If Supplied By Facility): CTDIvol = ( 44.99 ) mGy, DLP = ( 762.36 ) mGycm TECHNIQUE: Transaxial CT imaging of the brain was performed without administration of intravenous contrast material. Individualized dose optimization techniques were used for this CT. COMPARISON: 02/08/2018, 09/06/2017.. FINDINGS: Normal soft tissue structures. Normal calvarium. No acute abnormality. Stable poorly defined poorly marginated subtle area of increased density in the medial occipital lobe approximately 1.3 cm seen on axial image 17, consistent with patient's known venous angioma. Normal size ventricles and extra-axial spaces for the patient's age. Otherwise normal white matter tracts of the cerebral hemispheres. Normal basal ganglia and thalami. Normal brainstem. Normal cerebellum. There is no intracranial hemorrhage. There are no findings of an acute ischemic infarction. Normal visualized paranasal sinuses. CT/Brain/Head without Contrast IMPRESSION: Stable. No acute abnormalities. Electronically Signed: Jose Corona MD at 20:05 EST , Service support ,
--- NOTE | 2018-05-13 19:19 | ED.VISSUMM ---
- ER Visit Summary Date of Service: 05/13/18 Chief Complaint: [] Chronic headaches needs CAT scan today so she can have MRI tomorrow History of Present Illness: The patient is a 23 F [] she has a long history of chronic headaches apparently she indicates a few years ago while she was she had bleeding from her brain which she thinks was from an angioma, she has intermittent headaches since then, she has been having headaches for weeks she was seen in the emergency department recently her workup was unremarkable, she indicates she is scheduled by her neurologist at the [facility] to have an MRI when she contacted them to tell them that she has persistence of the headaches they wanted to move her MRI up however she indicates she was told by them that she needs a CAT scan done before she can have her MRI and she indicates she was instructed by the [facility] neurology subspecialist come to the emergency department get the CT of her head, she has no new complaints or concerns no fever no cough is not was having for the pain, she is here with her and 2 children Physical Examination: [] 142/70 Is no distress handling holding her children were very young aged , HEENT exam is unremarkable her neck is supple lungs are clear heart tones are normal and soft nontender she is awake moving all 4 extremities no neurologic abnormalities no physical findings on exam These headaches are something that are chronic acute relapsing she does not wish to even have anything for the headache pain she simply wants the CT done so she can get her MRI done What she reports as above will obtain head CT she indicates if that is negative she will be following up with her neurologist the [facility] tomorrow CT scan shows nothing acute does show the known venous angioma no bleed see that report the patient is comfortable discharge home we did provide her with that information and a copy of the CT disc that showed her neurologist tomorrow Test Results: [] Emergency Department Course and Treatment: [] Treatment Plan: [] Disposition: [] Home stable Impression: [] Acute recurrent headache disorder 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 It may contain incorrect words, spelling, and punctuation that were not noted in review of the chart prior to signing ED Disposition - Plan for ED Patient: Chief Complaint: Headache Referrals: Sherri Brown MD [Primary Care Provider] -
--- NOTE | 2018-05-13 20:51 | ED.DEP ---
ED Disposition - Plan for ED Patient: Chief Complaint: Headache Instructions: ED Headache Migraine Referrals: Sherri Brown MD [Primary Care Provider] - Additional Instructions: Low up with all of your outpatient providers tomorrow
[2018-05-13 21:12] VITALS: RESP 14
== END 2018-05-13 21:13 | disposition home or self-care (01) ==
LOC: ED 19:59
PROVIDERS: Emergency Provider Emergency Medicine; Family Provider Internal Medicine; PCP Internal Medicine
DX: R51 Headache (principal); Q28.3 Other malformations of cerebral vessels; Z79.899 Other long term (current) drug therapy
CPT/HCPCS: 70450; 99282

== ENCOUNTER → 2018-09-17 | Outpatient (CLI) | payer MEDICAID, SELFPAY ==
[2018-09-15 14:30] VITALS: BMI 37.8
[2018-09-17 11:06] LABS: Hematocrit 39.9 % (37-47); Hemoglobin 13.7 g/dl (12.0-15.0); Mean Corp Hgb Conc 34.3 g/gl (32-36); Mean Corpuscular Hgb 27.8 pg (27.0-32.0); Mean Corpuscular Volume 80.9 fL (81-99); Platelet Count 145 K/mm3 (150-450); RBC Distribution Width CV 13.5 % (11.6-14.6); RBC Distribution Width SD 39.9 fl (35.1-43.9); Red Blood Count 4.93 M/mm3 (4.2-5.4); White Blood Count 8.2 K/mm3 (4.4-11.0)
[2018-09-17 11:07] LABS: Scan Indicated on CBC? Y/N NO
[2018-09-17 11:21] LABS: hCG Titer Quant., Serum < 1 mIU/mL (<9 non-preg)
[2018-09-17 11:28] LABS: Follicle Stimulating Hormone 4.5 mIU/mL; Free T3 2.4 pg/mL (2.18-3.98); Luteinizing Hormone 18.6 mIU/mL; Prolactin 2.9 ng/mL; T4 Free Direct 0.72 ng/dL (0.76-1.46); Thyroid Stim Hormone (TSH) 0.89 uIU/mL (0.358-3.74)
[2018-09-17 11:36] LABS: Progesterone Level 0.13 ng/mL (See Comment)
[2018-09-17 11:43] LABS: Hemoglobin A1c 5.2 % (4.2-6.3)
== END | disposition home or self-care (01) ==
LOC: WOBLAB 10:01
PROVIDERS: Visit Provider Obstetrics & Gynecology
DX: N92.1 Excessive and frequent menstruation with irregular cycle (principal)
CPT/HCPCS: 36415; 83001; 83002; 83036; 84144; 84146; 84439; 84443; 84481; 84702; 85027

== ENCOUNTER 2018-09-29 18:27 | Emergency (ER) | payer MEDICAID, SELFPAY ==
[2018-09-15 14:30] VITALS: BMI 37.8
[2018-09-29 18:28] VITALS: BP 100/71; PULSE 80; RESP 16; TEMP 37.2; O2SAT 100; BMI 40.0
--- NOTE | 2018-09-29 18:50 | CT_ITS ---
STUDY: CT BRAIN WITHOUT CONTRAST REASON FOR EXAM: Female, 23 years old. Known angioma, hit head. RADIATION DOSAGE (If Supplied By Facility): CTDIvol = ( 60.81 ) mGy, DLP = ( 998.67 ) mGycm TECHNIQUE: Transaxial CT imaging of the brain was performed without administration of intravenous contrast material. Individualized dose optimization techniques were used for this CT. COMPARISON: 05/13/2018. 11/27/2016. FINDINGS: Normal soft tissue structures. Normal calvarium. Normal size ventricles and extra-axial spaces for the patient's age. Normal white matter tracts of the cerebral hemispheres. Normal basal ganglia and thalami. Normal brainstem. Normal cerebellum. There is no intracranial hemorrhage. There are no findings of an acute ischemic infarction. There is a 1 x 0.7 cm hyperdensity in the left posteromedial temporal lobe consistent with previously reported vascular anomaly. This is stable compared to 2018, and mildly increased compared to 2016. Fluid levels are noted in the maxillary sinuses consistent with acute sinusitis. There is mild mucosal thickening consistent with underlying chronic sinusitis. CT/Brain/Head without Contrast IMPRESSION: 1. No acute findings. 2. 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 Electronically Signed: Lina Joel MD at 19:33 EDT Tel , Service support ,
--- NOTE | 2018-09-29 20:35 | ED.DCSUM_ITS ---
- ER Visit Summary Date of Service: 09/29/18 Chief Complaint: Head injury History of Present Illness: The patient is a [address] Castellon. She reports that she stood up last night and hit her head on the freezer door. No loss of consciousness. However, she states that she has a left temporal cavern ous angioma that has bled in the past. And she is concerned that this is bleeding again. States that she has a headache is 8 out of 10 severity. She has been nauseated, but has not vomited. Physical Examination: Vitals: Stable. Afebrile. Head: Mild tenderness palpation of the occipital area of her scalp. Neck: No vertebral tenderness. Full ROM without difficulty. Cleared by NEXUS criteria. Back: No vertebral tenderness. General: A&O x 3. NAD. Cardiovascular exam: Regular rate and rhythm, no murmur, rub or gallop. Respiratory exam: Chest nontender. No crepitus. Clear to auscultation bilaterally. No wheezes or stridor. Abdominal exam: Soft, nontender, nondistended, normal bowel sounds. No pain in RUQ or LUQ specifically. No peritoneal signs. Extremity: Atraumatic. No pain with range of motion. Test Results: Clinical Impression(s) from Imaging Studies Brain CT 09/29/18 18:50 IMPRESSION: 1. No acute findings. 2. 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 Electronically Signed: Lina Joel MD at 19:33 EDT Tel , Service support , Emergency Department Course and Treatment: Patient refused pain or nausea medications. She is resting comfortably. Treatment Plan: Patient be discharged instructions with her primary care physician 1 week for another exam. Return to the emergency department for any worsening symptoms. Disposition: To home in improved and stable condition. Impression: 1. Closed head injury. This note was generated with DOMAIN Therapeuticsation software. It may contain incorrect words, spelling, and punctuation that were not noted in review of the chart prior to signing ED Disposition - Plan for ED Patient: Disposition: Home or Assisted Living Instructions: ED Concussion Referrals: Sherri Brown MD [Primary Care Provider] - 1 Week
[2018-09-29 20:55] VITALS: BP 112/76; PULSE 71; RESP 16; O2SAT 100
== END 2018-09-29 20:55 | disposition home or self-care (01) ==
LOC: ED 19:06
PROVIDERS: Emergency Provider Emergency Medicine; Family Provider Internal Medicine; PCP Internal Medicine
DX: S09.90XA Unspecified injury of head, initial encounter (principal); W22.09XA Striking against other stationary object, initial encounter; Y93.89 Activity, other specified; Y92.000 Kitchen of unspecified non-institutional (private) residence as the place of occurrence of the external cause; Y99.8 Other external cause status
CPT/HCPCS: 70450; 99282

== ENCOUNTER → 2018-10-22 | Outpatient (CLI) | payer MEDICAID, SELFPAY ==
[2018-09-29 18:28] VITALS: BMI 40.0
[2018-10-22 16:47] LABS: Chlamydia Trachomatis by PCR Negative (Negative); Neisserai gonorrhoeae by PCR Negative (Negative); Probe Check PASS; Sample Adequacy Control PASS; Specimen Processing Control PASS
== END | disposition home or self-care (01) ==
LOC: LABSPEC 14:25
PROVIDERS: Visit Provider Obstetrics & Gynecology
DX: Z11.3 Encounter for screening for infections with a predominantly sexual mode of transmission (principal)
CPT/HCPCS: 87491; 87591

== ENCOUNTER 2018-11-02 10:37 | Emergency (ER) | payer MEDICAID, SELFPAY ==
[2018-11-02 10:39] VITALS: BP 111/62; PULSE 84; RESP 14; TEMP 36.6; O2SAT 97; BMI 38.7
--- NOTE | 2018-11-02 10:51 | EKG12_ITS ---
Test Reason : CP Blood Pressure : / mmHG Vent. Rate : 072 BPM Atrial Rate : 072 BPM P-R Int : 162 ms QRS Dur : 082 ms QT Int : 380 ms P-R-T Axes : 044 027 034 degrees QTc Int : 416 ms Normal sinus rhythm Normal ECG Confirmed by REGINA GUZMAN ([id number]), publication editor DELVIS LOOMIS ([id number]) on 11/04/2018 8:41:43 AM Referred By: LUCY/FRANCISCO Confirmed By:REGINA GUZMAN
--- NOTE | 2018-11-02 10:51 | RAD_ITS ---
STUDY: X-RAY CHEST REASON FOR EXAM: Female, 23 years old. Chest pain. TECHNIQUE: Single AP portable view of the chest. COMPARISON: Comparison is made with prior study dated February 08, 2018. FINDINGS: EKG electrodes are seen. The lungs are clear and expanded. Scattered calcified granulomas. There is no demonstrated pleural abnormality. Normal size heart. Normal mediastinum and talat. Normal visualized pulmonary arteries. Normal visualized aortic arch and descending thoracic aorta. Normal visualized thoracic spine. Normal visualized ribs, clavicles, and shoulders. There is no demonstrated abnormality of the visualized soft tissue structures of the upper abdomen. RAD/Chest 1 View (Portable) IMPRESSION: Normal x-ray examination of the chest. Electronically Signed: Vinay Garrett, at 11:28 EDT , Service support ,
[2018-11-02 11:06] LABS: D-Dimer Quantitative (DVT/PE) 0.32 FEU/ug/m (0.27-0.49)
[2018-11-02 11:37] LABS: Absolute Lymphocyte Count 2.63 X10^3/ul (0.83-4.51); Absolute Neutrophil Count 3.4 X10^3/uL (2.0-7.7); Basophil# 0.01 X10^3/uL; Basophil% 0.2 % (0-1); Hematocrit 39.3 % (37-47); Hemoglobin 13.6 g/dl (12.0-15.0); Lymphocyte # 2.63 X10^3/ul (4.0); Lymphocyte % 39.9 % (19-41); Mean Corp Hgb Conc 34.6 g/gl (32-36); Mean Corpuscular Hgb 28.5 pg (27.0-32.0); Mean Corpuscular Volume 82.2 fL (81-99); Mean Platelet Vol. 10.5 fl (6.2-12.0); Monocyte# 0.58 X10^3/uL; Monocyte% 8.8 % (0-10); Neutrophil # 3.36 X10^3/uL (2.7-7.7); Neutrophil % 50.9 % (47-70); Platelet Count 193 K/mm3 (150-450); RBC Distribution Width CV 14.1 % (11.6-14.6); RBC Distribution Width SD 41.9 fl (35.1-43.9); Red Blood Count 4.78 M/mm3 (4.2-5.4); White Blood Count 6.6 K/mm3 (4.4-11.0)
[2018-11-02 11:38] LABS: POSITIVE COUNT NO; POSITIVE DIFFERENTIAL NO; POSITIVE MORPHOLOGY NO
[2018-11-02 11:52] LABS: Anion Gap 6 (5-15); BUN 11 mg/dL (7-18); Calcium,Total 8.6 mg/dL (8.5-10.1); Chloride 112 mmol/L (98-107); Creatinine, Serum 0.92 mg/dL (0.55-1.02); EST Glomerular Filtration Rate 79 mL/min (>60); Est Glom Filt Rate - Afr Amer 95 mL/min (>60); Estimated Creatinine Clearance 70.54 ml/min; Glucose 87 mg/dL (74-106); Potassium 3.8 mmol/L (3.5-5.1); Sodium Level 141 mmol/L (136-145); Thyroid Stim Hormone (TSH) 0.38 uIU/mL (0.358-3.74)
--- NOTE | 2018-11-02 12:02 | ED.DCSUM_ITS ---
- ER Visit Summary Date of Service: 11/02/18 Chief Complaint: [Chest pain and palpitations] History of Present Illness: The patient is a 23 F [presents the emergency department with palpitations that started yesterday. Patient states that eventually they resolved. Patient also today had some discomfort in the center of her chest that she described as a sharp pain that was worse with breathing and moving. Patient also felt like her heart was racing but she did not actually check her pulse. She denies feeling syncopal or presyncopal. She denies any recent travel or surgery. Patient does relate that she started to new medications about 4 days ago for anxiety and her seizure disorder. Patient started citalopram and lamotrigine. Patient denies recent illness. Currently she has no chest pain.] Patient did complain of some tingling in both hands associated with this. Patient does have a history of anxiety. Physical Examination: [HEENT-PERRLA, EOMI. Cranial nerves II through XII grossly intact. TMs clear. Mucous membranes moist. No adenopathy. Cardiovascular-regular rate and rhythm without murmur or ectopy Lungs-clear to auscultation, chest wall stable without crepitus or subcu emphysema Abdomen-normoactive bowel sounds, soft, nontender, no rebound or rigidity, no peritoneal signs. Extremities-intact ?4, normal range of motion, normal pulses, atraumatic] Test Results: [EKG obtained for sinus rhythm with a ventricular rate of 72 bpm with no acute I segment changes.] Emergency Department Course and Treatment: [CBC with differential was unremarkable. Chemistries unremarkable. D-dimer was 0.32. TSH was 0.38. EKG shows sinus rhythm with a ventricular rate of 72 bpm with no acute ST segment changes. Chest x-ray was normal.] Treatment Plan: [This point the etiology of her symptoms is unclear however I suspect a component of anxiety which she does have.] Disposition: [Home stable condition.] Impression: [Chest pain-atypical Palpitations Anxiety] This note was generated with [employer] dictation software. It may contain incorrect words, spelling, and punctuation that were not noted in review of the chart prior to signing ED Disposition - Plan for ED Patient: Referrals: Sherri Brown MD [Primary Care Provider] -
--- NOTE | 2018-11-02 12:02 | ED.DEP ---
ED Disposition - Plan for ED Patient: Instructions: ED Chest Pain Atypical Unkn Cause, ED Palpitations, ED Stress React Referrals: Sherri Brown MD [Primary Care Provider] - 3-5 Days
[2018-11-02 12:12] VITALS: BP 91/65; PULSE 61; RESP 16; O2SAT 98
== END 2018-11-02 12:13 | disposition home or self-care (01) ==
LOC: ED 11:32
PROVIDERS: Emergency Provider Emergency Medicine; Family Provider Internal Medicine; PCP Internal Medicine
DX: R07.89 Other chest pain (principal); R00.2 Palpitations; F41.9 Anxiety disorder, unspecified; G40.909 Epilepsy, unspecified, not intractable, without status epilepticus; Z79.899 Other long term (current) drug therapy
CPT/HCPCS: 71045; 80048; 84443; 85025; 85379; 93005; 99284

== ENCOUNTER 2018-11-09 14:27 | Emergency (ER) | payer MEDICAID, SELFPAY ==
[2018-11-09 14:28] VITALS: BP 97/64; PULSE 108; PULSE 113; RESP 16; TEMP 37.2; O2SAT 95; BMI 38.1
--- NOTE | 2018-11-09 14:36 | US_ITS ---
STUDY: ULTRASOUND TRANSVAGINAL CLINICAL: Female, 23 years old. Pain. TECHNIQUE: Transabdominal and Transvaginal COMPARISON: None. FINDINGS: Normal uterine size measuring 9.6 x 5.4 x 4.6 cm in maximal craniocaudal dimension. There are no myometrial masses. Normal endometrial thickness measuring 13 mm. There are no endometrial masses, and there is no fluid in the endometrial cavity. Endometrial echoes are hyperechoic and well-defined. Trace fluid in the endocervical canal. Otherwise unremarkable uterine cervix. Normal right ovary, measuring 4.0 x 3.7 x 2.7 cm. There is a 1.5 cm dominant follicle. Normal left ovary, measuring 5.6 x 5.2 x 3.3 cm. There is a 3.8 cm cyst. There is no free fluid in the pelvis. Polycystic ovary disease: No. US/Transvaginal Non- IMPRESSION: 3.8 cm left ovarian cyst. No other significant findings. Electronically Signed: Jose Corona MD at 16:18 EDT , Service support ,
--- NOTE | 2018-11-09 14:41 | ED.VIS.GEN ---
History of Present Illness Chief Complaint: Abd Pain Informant: Patient Onset: Days Context: Onset with activity - [place], Sudden Onset Timing: Continuous Quality: Pain left side Location: Left lower quadrant/pelvic region Current Severity: Mild Maximum Severity: Moderate Worsened by: [place] Relieved by: Nothing Associated Symptoms: Frequency Narrative: Patient is a G2, P2 female who presents with abnormal vaginal bleeding and left pelvic pain. She was diagnosed with a 5 cm ovarian cyst 2 weeks ago at outside facility. She denies fever, chills night sweats. She denies hematuria or dysuria but does report frequency. She also complains of vaginal discharge since having increased intercourse with her partner. She denies history of STI. She denies vaginal lesions or sores. Triage documented bilateral lower abdominal pain. Prior similar symptoms: Yes Recent Illness/Hospitalization: Yes - Past Medical History (1) Cavernous hemangioma Status: Acute (2) depression Status: Acute Comment: sarina, margarita Past Medical History - Allergies and Home Meds Allergies/Adverse Reactions: Allergies amoxicillin [Amoxicillin] Allergy (Verified 11/09/18 14:31) Rash clarithromycin [From Biaxin] Allergy (Verified 11/09/18 14:31) Rash soy Allergy (Verified 11/09/18 14:31) Anaphylaxis lactose Adverse Reaction (Verified 11/09/18 14:31) Upset Stomach latex Adverse Reaction (Verified 11/09/18 14:31) Rash Primary Care Physician: Sherri Brown MD [Primary Care Provider] - Prior records reviewed: Yes - No cranial hemorrhage during prior left Surgical History: - - Status post bilateral tubal ligation 10 to 11 months ago. Failed placement of IUD last month. Lives: Spouse/ Significant Other, With Family Smoking Status: Never smoker Alcohol: None Review of Systems General: Denies: Chills, Fever, Sweats Eyes: Denies: Visual changes - bilaterally, Diplopia ENT: Denies: Rhinorrhea, Sore throat Cardiovascular: Denies: Chest pain, Palpitations Respiratory: Denies: Dyspnea, Cough, Dyspnea on exertion Gastrointestinal: Reports: Abdominal pain. Denies: Nausea, Vomiting, Diarrhea, Constipation, Melena, Hematochezia, -, - Genitourinary: Reports: Frequency. Denies: Dysuria, Hematuria Musculoskeletal: Denies: Back pain, Extremity Pain Skin: Denies: Rash, Wounds Neurological: Denies: Headache, Weakness, Numbness Psych: Reports: Depression Endocrine: Denies: Polyuria, Polydipsia Hematologic: Denies: Easy bruising, Easy bleeding Physical Exam Vital Signs/Narrative: Vital Signs Temp Pulse Resp BP Pulse Ox 11/09/18 14:28 99.0 F 108 H 16 97/64 95 Inital Vital Signs reviewed: Yes General: Well nourished, Well developed, Obese, No Acute Distress Head: Normocephalic, Atraumatic Eyes: Perrl, EOMI. Negative for: Pale conjunctiva, Scleral icterus ENT: Moist mucous membranes, No rhinorrhea Neck: Supple, Nontender, No lymphadenopathy, No JVD Cardiovascular: Regular rate, Regular rhythm, No murmurs Respiratory: No distress, CTA bilaterally, Chest nontender Abdomen: Soft, Nondistended, Normal bowel sounds, No masses, Tender. Negative for: Nontender, Guarding, Rebound tenderness, Hepatomegaly, Splenomegaly, Mass, Pulsatile mass Rectal: Deferred : - - External genitalia normal. Vaginal cervical mucosa normal. No discharge is noted. Bimanual exam is limited secondary to body habitus. She has no cervical motion tenderness. No discomfort with pressure against the bladder or uterus. No adnexal fullness or discomfort on the right. She complains of discomfort on the left. Unable to palpate ovary. Back: Nontender, Normal Inspection. Negative for: CVA tenderness, Spinal tenderness Extremities: Nontender, No edema Skin: Normal color, No rash, No Trauma. Negative for: Cyanosis, Diaphoresis, Jaundice Neurological: Alert, Oriented x3, Cranial nerves II-XII grossly intact, Normal Strength, Normal Sensation Psychological: Depressed Diagnostic/Tx/Re-eval 11/09/18 14:36 Transvaginal Non- [US] Stat Laboratory Results 11/09/18 11/09/18 14:55 15:15 Serum , Qual NEGATIVE Urine Color Yellow Urine Clarity Sl. Cloudy Urine pH 7.0 Ur Specific [place] 1.005 Urine Protein 30 H Urine Glucose (UA) Normal Urine Ketones 150 H Urine Occult Blood 250 H Urine Nitrite Negative Urine Bilirubin Negative Urine Urobilinogen Normal Ur Leukocyte Esterase 500 H Urine RBC 0-5 SEEN Urine WBC 5-10 SEEN Ur Squamous Epith Cells 10-25 SEEN Urine Bacteria 2+ Urine Mucus 0 SEEN Transvaginal ultrasound reveals a 2.5 cm cyst which has decreased in size. Flow was noted bilaterally. - Medical Decision Making With with abrupt onset of left pelvic pain and history of 5 cm cyst need to evaluate for ectopic as well as torsion. CBC, UA was obtained. UA was obtained since she complains of frequency. Ultrasound of the pelvis was ordered. The cause of her pelvic pain is uncertain. This may be secondary to her ovarian cyst. Urine reveals a contaminated specimen. ED Disposition - Plan for ED Patient: Disposition: Home or Assisted Living Diagnosis: Pelvic pain, Left ovarian cyst Instructions: ED Pelvic Pain [facility], ED Cyst Ovarian Referrals: Sherri Brown MD [Primary Care Provider] - Agustin Larson MD [STAFF PHYSICIAN] - 5-7 Days Additional Instructions: Take either 4 Advil every 8 hours or 2 Aleve every 12 hours for the next 3 to 5 days for your discomfort.
[2018-11-09 15:15] LABS: Internal QC Validated? YES +Cl - CLEAR BKGD; Pregnancy, Serum, hCG Quali. NEGATIVE Negative
[2018-11-09 15:24] LABS: Mucous, Urine 0 SEEN /hpf (<or=2+)
[2018-11-09 15:27] LABS: Color, Urine Yellow (Yellow); Glucose, Dipstick Normal (Normal); Leukocyte Esterase-Dipstick 500 /ul (Negative); Nitrite-Dipstick Negative (Negative); Occult Blood-Urine 250 /ul (Negative); Protein-Dipstick 30 mg/dl (Negative); Specific Gravity, Urine 1.005 (1.002-1.030); Urine Bilirubin Dipstick Negative (Negative); Urine Clarity Sl. Cloudy (Clear); Urine Urobilinogen Normal (Normal)
[2018-11-09 15:43] LABS: Ketone-Dipstick 150 mg/dl (Negative)
[2018-11-09 15:46] LABS: Red Blood Cells-Urine 0-5 SEEN /hpf (0-5); Squamous Epithelial Cells - UA 10-25 SEEN /hpf (5-10); White Blood Cells 5-10 SEEN /hpf (0-5)
[2018-11-09 15:47] LABS: Bacteria 2+ /hpf (None Seen)
[2018-11-09 16:07] VITALS: BP 104/63; PULSE 93; RESP 16; O2SAT 98
== END 2018-11-09 16:09 | disposition home or self-care (01) ==
PROVIDERS: Emergency Provider Emergency Medicine; Family Provider Internal Medicine; PCP Internal Medicine
DX: N83.202 Unspecified ovarian cyst, left side (principal); R10.2 Pelvic and perineal pain; E66.9 Obesity, unspecified
CPT/HCPCS: 76830; 81001; 84703; 93976; 99283; A4216

== ENCOUNTER 2019-02-02 11:37 | Emergency (ER) | payer MEDICAID, SELFPAY ==
[2019-02-02 11:37] VITALS: BP 134/72; PULSE 77; RESP 16; TEMP 36.2; O2SAT 95; BMI 40.4
--- NOTE | 2019-02-02 12:00 | ED.VISSUMM ---
- ER Visit Summary Date of Service: 02/02/19 Chief Complaint: Ear History of Present Illness: The patient is a 23 F who presents with a seizure that occurred today. Patient states she has a history of absence seizure's. Patient states she took NyQuil for sore throat earlier this morning and then had a typical absence seizure approximately 1-1/2 hours later. Patient states there was a caregiver that came to her house who witnessed the seizure and thought it was longer than her typical seizures. Patient states she did have a headache 2 days ago but currently denies any headaches. Patient states that she has tingling in her hands bilaterally. Physical Examination: Vital signs are stable. Patient is afebrile. Patient is in no acute distress. Oral mucosa is pink and moist. Neck is supple. Trachea is midline. There is no JVD noted. Heart was regular rate and rhythm. Lungs are clear and equal bilateral. Abdomen is soft. Bowel sounds are normal. There is no tenderness. There is no guarding noted. Skin is warm dry. Cranial nerves II through XII are intact. There are no focal motor or sensory deficits noted. The remaining physical exam is within normal limits. Test Results: CBC and basic metabolic profile were obtained and were all within normal limits. Since the patient does not have a headache and is normal neurologic exam I do not feel CT scan of the necessary at this time. Emergency Department Course and Treatment: Patient had no further seizure activity here in the emergency department. Patient was instructed to continue her medications as previously prescribed. Patient understood and was agreeable with the plan. All questions were answered. Disposition: Discharge home Impression: Seizure This note was generated with [employer] dictation software. It may contain incorrect words, spelling, and punctuation that were not noted in review of the chart prior to signing ED Disposition - Plan for ED Patient: Disposition: Home or Assisted Living Diagnosis: Seizure Instructions: SEIZURE, Recurrent [Adult] Referrals: Sherri Brown MD [Primary Care Provider] - 5-7 Days
[2019-02-02 13:04] LABS: Absolute Lymphocyte Count 3.14 X10^3/uL (0.83-4.51); Absolute Neutrophil Count 6.6 X10^3/uL (2.0-7.7); Basophil# 0.03 X10^3/uL; Basophil% 0.3 % (0-1); Eosinophil# 0.14 X10^3/uL; Eosinophils% 1.3 % (0-5); Hematocrit 43.3 % (37-47); Hemoglobin 14.1 g/dL (12.0-15.0); Lymphocyte # 3.14 X10^3/ul (4.0); Lymphocyte % 29.7 % (19-41); Mean Corp Hgb Conc 32.6 g/dL (32-36); Mean Corpuscular Hgb 28.8 pg (27.0-32.0); Mean Corpuscular Volume 88.4 fL (81-99); Mean Platelet Vol. 9.9 fl (6.2-12.0); Monocyte# 0.65 X10^3/uL; Monocyte% 6.2 % (0-10); NRBC Flagged by Analyzer 0 % (0-5); Neutrophil # 6.56 X10^3/uL (2.7-7.7); Neutrophil % 62.1 % (47-70); POSITIVE MORPHOLOGY YES; Platelet Count 218 K/mm3 (150-450); RBC Distribution Width SD 41.8 fl (35.1-43.9); White Blood Count 10.6 K/mm3 (4.4-11.0)
[2019-02-02 13:19] LABS: Anion Gap 6 (5-15); BUN 10 mg/dL (7-18); BUN/Creat Ratio 11.9 RATIO (10-20); Calcium,Total 8.9 mg/dL (8.5-10.1); Chloride 107 mmol/L (98-107); Creatinine, Serum 0.84 mg/dL (0.55-1.02); EST Glomerular Filtration Rate 88 mL/min (>60); Est Glom Filt Rate - Afr Amer 106 mL/min (>60); Estimated Creatinine Clearance 77.26 ml/min; Glucose 91 mg/dL (74-106); Potassium 4.9 mmol/L (3.5-5.1); Sodium Level 142 mmol/L (136-145)
[2019-02-02 13:27] LABS: Differential Indicated SCAN CRITERIA MET
[2019-02-02 15:38] VITALS: BP 114/62; PULSE 69; RESP 18; O2SAT 99
== END 2019-02-02 15:41 | disposition home or self-care (01) ==
PROVIDERS: Emergency Provider Emergency Medicine; Family Provider Internal Medicine; PCP Internal Medicine
DX: G40.A09 Absence epileptic syndrome, not intractable, without status epilepticus (principal); E66.9 Obesity, unspecified; Z79.899 Other long term (current) drug therapy
CPT/HCPCS: 80048; 85025; 99283; A4216

== ENCOUNTER 2019-02-06 10:09 | Emergency (ER) | payer MEDICAID, SELFPAY ==
[2019-02-06 10:10] VITALS: BP 123/75; PULSE 97; RESP 16; TEMP 36.3; O2SAT 98; BMI 40.2
--- NOTE | 2019-02-06 10:39 | CT_ITS ---
STUDY: CT ABDOMEN AND PELVIS WITH CONTRAST REASON FOR EXAM: Female, 23 years old. Left-sided abdominal pain RADIATION DOSAGE (If Supplied By Facility): CTDIvol = ( 15.22 ) mGy, DLP = ( 1222.01 ) mGycm TECHNIQUE: Transaxial images were obtained from the dome of the diaphragm to the symphysis pubis without oral contrast. 100 IV Isovue 370 was administered. Sagittal and coronal images were reconstructed. Individualized dose optimization techniques were used for this CT. COMPARISON: March 31, 2014 CT scan abdomen and pelvis FINDINGS: The visualized lung bases are unremarkable. The visualized portions of the heart are within normal limits. Normal liver. Normal gallbladder and extrahepatic biliary system. Normal spleen. Normal pancreas. Normal bilateral adrenal glands. Normal right kidney. Normal left kidney. Normal visualized stomach. Normal small intestine. There is a fluid density within the ascending colon. There is a decompressed appearance of the colon. The appendix is visualized and appears normal. Normal abdominal aorta. Normal inferior vena cava. A few nonspecific retroperitoneal lymph nodes appear Normal urinary bladder. Uterus is of normal size. There is a left ovarian cyst measuring 3.5 x 6 cm new since prior study. Thickening of the endometrium when compared to prior study. There is a minimal umbilical hernia containing fat. There are diffuse degenerative changes of the visualized lumbar spine. CT/Abdomen/Pelvis W IV Cont ONLY IMPRESSION: 3.5 x 3.6 cm left ovarian cyst. Nonspecific bowel gas pattern fluid density within the ascending colon. Potentially gastroenteritis could have this appearance. Electronically Signed: Malini Roberson MD at 12:41 EDT Tel , Service support ,
--- NOTE | 2019-02-06 10:42 | ED.VIS.GI ---
History of Present Illness Chief Complaint: Abd Pain Informant: Patient - Abdominal Pain/Flank Pain Onset: Yesterday Context: Gradual Onset Timing: Continuous Quality: Aching Location: LUQ, LLQ Current Severity: Moderate Maximum Severity: Moderate Worsened by: Movement Relieved by: Nothing - Nausea/Vomiting/Emesis GI Symptom: Negative for: Nausea, Vomiting - Diarrhea/Melena/Hematochezia GI Symptom: Diarrhea Onset: Today Stool Quality: Watery. Negative for: Black, CONCEPCION per rectum Severity: Moderate - 5-6x just this AM (awoke about 3-4 hrs ago) Associated Symptoms: Negative for: Dysuria, Frequency, Hematuria, Urgency Narrative: Recently has had seasonal allergy symptoms, for which she takes medications, and developed bilat ear pain and popping with decreased hearing; seen in urgent care and prescribed an unknown antibiotic and a prednisone taper, both of which she started yesterday. States her abdomen was bothering her yesterday, she woke up with her partners feet on this area of her abdomen but when I move them, the pain was still there, so I came in. - Past Medical History (1) Epilepsy Status: Chronic (2) Cavernous hemangioma Status: Chronic (3) depression Status: Chronic Comment: sarina, counseling Past Medical History - Allergies and Home Meds Allergies/Adverse Reactions: Allergies amoxicillin [Amoxicillin] Allergy (Verified 02/06/19 10:26) Rash clarithromycin [From Biaxin] Allergy (Verified 02/06/19 10:26) Rash soy Allergy (Verified 02/06/19 10:26) Anaphylaxis lactose Adverse Reaction (Verified 02/06/19 10:26) Upset Stomach latex Adverse Reaction (Verified 02/06/19 10:26) Rash Primary Care Physician: Sherri Brown MD [Primary Care Provider] - 3-5 Days if not improving Surgical History: - - Status post bilateral tubal ligation 10 to 11 months ago. Failed placement of IUD last month. Smoking Status: Never smoker Review of Systems General: Denies: Chills, Fever, Sweats Eyes: Denies: Visual changes - bilaterally, Diplopia ENT: Reports: Bilateral ear pain, Rhinorrhea. Denies: Sore throat Cardiovascular: Denies: Chest pain, Palpitations Respiratory: Denies: Dyspnea, Cough, Dyspnea on exertion Gastrointestinal: Reports: Abdominal pain, Diarrhea. Denies: Nausea, Vomiting, Melena, Hematochezia Genitourinary: Denies: Dysuria, Hematuria, Frequency Musculoskeletal: Denies: Neck pain, Back pain, Extremity Pain Skin: Denies: Rash, Wounds Neurological: Denies: Headache, Weakness, Numbness Physical Exam Vital Signs/Narrative: Vital Signs Temp Pulse Resp BP Pulse Ox 02/06/19 10:10 97.4 F L 97 16 123/75 H 98 Inital Vital Signs reviewed: Yes General: Well nourished, Well developed, Obese, No Acute Distress Head: Normocephalic, Atraumatic Eyes: Perrl, EOMI ENT: Moist mucous membranes, No rhinorrhea Neck: Supple, Nontender Cardiovascular: Regular rate, Regular rhythm, No murmurs Respiratory: No distress, CTA bilaterally, Chest nontender Abdomen: Soft, Nondistended, Normal bowel sounds, Tender - thorughout left lateral abd, worst in middle; nml inspection there, no rash/lesions. Negative for: Guarding, Rebound tenderness Back: Nontender, Normal Inspection Extremities: Nontender, No edema Skin: Normal color, No rash, No Trauma Neurological: Alert, Oriented x3, Cranial nerves II-XII grossly intact, Normal Strength, Normal Sensation, Normal Gait Psychological: Normal affect, Normal Mood Diagnostic/Tx/Re-eval Impressions Abdomen/Pelvis CT 02/06/19 10:39 IMPRESSION: 3.5 x 3.6 cm left ovarian cyst. Nonspecific bowel gas pattern fluid density within the ascending colon. Potentially gastroenteritis could have this appearance. Electronically Signed: Malini Roberson MD at 12:41 EDT Tel , Service support , 02/06/19 10:39 Abdomen/Pelvis W IV Cont ONLY [CT] Stat Laboratory Results 02/06/19 02/06/19 02/06/19 10:50 10:53 10:53 WBC 11.6 H RBC 4.73 Hgb 13.7 Hct 40.9 MCV 86.5 MCH 29.0 MCHC 33.5 RDW Std Deviation 39.9 RDW Coeff of Robbi 12.8 Plt Count 201 MPV 10.0 Immature Gran % (Auto) 0.300 Neut % (Auto) 84.5 H Lymph % (Auto) 13.3 L [place] % (Auto) 1.7 Eos % (Auto) 0.0 Baso % (Auto) 0.2 Absolute Neuts (auto) 9.8 H Absolute Lymphs (auto) 1.55 Nucleated RBC % 0 Sodium 139 Potassium 4.1 Chloride 109 H Carbon Dioxide 25.0 Anion Gap 5 BUN 9 Creatinine 0.84 Estim Creat Clear Calc 77.26 Est GFR (MDRD) Af Amer 106 Est GFR (MDRD) Non-Af 88 BUN/Creatinine Ratio 10.8 Glucose 126 H Calcium 9.0 Urine Color Yellow Urine Clarity Sl. Cloudy Urine pH 6.5 Ur Specific [place] 1.010 Urine Protein 15 H Urine Glucose (UA) Normal Urine Ketones Negative Urine Occult Blood Negative Urine Nitrite Negative Urine Bilirubin Negative Urine Urobilinogen Normal Ur Leukocyte Esterase 25 H Urine RBC 0 SEEN Urine WBC 0 SEEN Ur Squamous Epith Cells 5-10 SEEN Urine Bacteria RARE Urine Mucus 0 SEEN Urine Test Negative - Medical Decision Making Patient was treated with IV fluids and Toradol, she does feel little better. CT shows nothing acute, and it does show a bowel gas pattern consistent with gastroenteritis, her symptoms are consistent with enteritis, no red flags like recent travel or camping or drinking ground water. No recent antibiotics. Suspect viral etiology at this point, she has had no hematochezia. I recommend supportive care and follow-up or returning if worse and she is comfortable with that plan. Of note, there was a cyst noted on her left ovary but I do not necessarily think this is causing her pain since she is having mild tenderness throughout the left side of her abdomen. She probably is having colonic pain without any signs of colitis or diverticulitis, related to intestinal spasm from her diarrhea. She was offered a prescription for Bentyl prior to discharge; she declined. ED Disposition - Plan for ED Patient: Disposition: Home or Assisted Living Diagnosis: Acute diarrhea, Left sided abdominal pain Instructions: Treating Diarrhea, ABDOMINAL PAIN, Unknown Cause, (Female) Referrals: Sherri Brown MD [Primary Care Provider] - 3-5 Days if not improving
[2019-02-06] MEDS: Ketorolac 15 MG/ML Vial IV (10:51)
[2019-02-06 10:56] LABS: Mucous, Urine 0 SEEN /hpf (<or=2+); Red Blood Cells-Urine 0 SEEN /hpf (0-5); White Blood Cells 0 SEEN /hpf (0-5)
[2019-02-06 10:57] LABS: Color, Urine Yellow (Yellow); Glucose, Dipstick Normal (Normal); Ketone-Dipstick Negative (Negative); Leukocyte Esterase-Dipstick 25 /ul (Negative); Nitrite-Dipstick Negative (Negative); Occult Blood-Urine Negative /ul (Negative); Protein-Dipstick 15 mg/dl (Negative); Urine Bilirubin Dipstick Negative (Negative); Urine Clarity Sl. Cloudy (Clear); Urine Urobilinogen Normal (Normal); Urine pH 6.5 (5.0 - 8.0)
[2019-02-06 11:00] LABS: Absolute Lymphocyte Count 1.55 X10^3/uL (0.83-4.51); Absolute Neutrophil Count 9.8 X10^3/uL (2.0-7.7); Basophil# 0.02 X10^3/uL; Basophil% 0.2 % (0-1); Hematocrit 40.9 % (37-47); Hemoglobin 13.7 g/dL (12.0-15.0); Lymphocyte # 1.55 X10^3/ul (4.0); Lymphocyte % 13.3 % (19-41); Mean Corp Hgb Conc 33.5 g/dL (32-36); Mean Corpuscular Volume 86.5 fL (81-99); Monocyte% 1.7 % (0-10); NRBC Flagged by Analyzer 0 % (0-5); Neutrophil # 9.82 X10^3/uL (2.7-7.7); Neutrophil % 84.5 % (47-70); Platelet Count 201 K/mm3 (150-450); RBC Distribution Width CV 12.8 % (11.6-14.6); RBC Distribution Width SD 39.9 fl (35.1-43.9); Red Blood Count 4.73 M/mm3 (4.2-5.4); White Blood Count 11.6 K/mm3 (4.4-11.0)
[2019-02-06 11:02] LABS: Bacteria RARE /hpf (None Seen); Squamous Epithelial Cells - UA 5-10 SEEN /hpf (5-10)
[2019-02-06 11:03] LABS: Internal QC Validated? YES +Cl - CLEAR BKGD; Pregnancy, Urine Negative Negative
[2019-02-06 11:20] LABS: Anion Gap 5 (5-15); BUN 9 mg/dL (7-18); BUN/Creat Ratio 10.8 RATIO (10-20); Chloride 109 mmol/L (98-107); Creatinine, Serum 0.84 mg/dL (0.55-1.02); EST Glomerular Filtration Rate 88 mL/min (>60); Est Glom Filt Rate - Afr Amer 106 mL/min (>60); Estimated Creatinine Clearance 77.26 ml/min; Glucose 126 mg/dL (74-106); Potassium 4.1 mmol/L (3.5-5.1); Sodium Level 139 mmol/L (136-145)
[2019-02-06 12:29] VITALS: BP 107/64; PULSE 68; RESP 16; O2SAT 98
== END 2019-02-06 13:01 | disposition home or self-care (01) ==
PROVIDERS: Emergency Provider Emergency Medicine; Family Provider Internal Medicine; PCP Internal Medicine
DX: R19.7 Diarrhea, unspecified (principal); R10.9 Unspecified abdominal pain; N83.202 Unspecified ovarian cyst, left side; G40.909 Epilepsy, unspecified, not intractable, without status epilepticus; E66.9 Obesity, unspecified; F53.0 Postpartum depression; Z79.899 Other long term (current) drug therapy
CPT/HCPCS: 74177; 80048; 81001; 81025; 85025; 96374; 99283; Q9967; A4216

== ENCOUNTER → 2019-02-10 | Outpatient (CLI) | payer MEDICAID, SELFPAY ==
[2019-02-06 10:10] VITALS: BMI 40.2
[2019-02-10 16:06] LABS: Bacteria 0 SEEN /hpf (None Seen); Mucous, Urine 0 SEEN /hpf (<or=2+); Red Blood Cells-Urine 0 SEEN /hpf (0-5); White Blood Cells 0 SEEN /hpf (0-5)
[2019-02-10 17:44] LABS: Color, Urine Yellow (Yellow); Glucose, Dipstick Normal (Normal); Ketone-Dipstick Negative (Negative); Leukocyte Esterase-Dipstick Negative /ul (Negative); Nitrite-Dipstick Negative (Negative); Occult Blood-Urine Negative /ul (Negative); Protein-Dipstick Negative (Negative); Urine Bilirubin Dipstick Negative (Negative); Urine Clarity Sl. Cloudy (Clear); Urine Urobilinogen Normal (Normal); Urine pH 6.5 (5.0 - 8.0)
[2019-02-10 17:56] LABS: Squamous Epithelial Cells - UA 0-5 SEEN /hpf (5-10)
[2019-02-10 20:08] LABS: Chlamydia Trachomatis by PCR Negative (Negative); Neisserai gonorrhoeae by PCR Negative (Negative); Probe Check PASS; Sample Adequacy Control PASS; Specimen Processing Control PASS
== END | disposition home or self-care (01) ==
LOC: LABSPEC 16:04
PROVIDERS: Visit Provider Obstetrics & Gynecology
DX: N39.0 Urinary tract infection, site not specified (principal); Z11.3 Encounter for screening for infections with a predominantly sexual mode of transmission
CPT/HCPCS: 81001; 87086; 87088; 87491; 87591

== ENCOUNTER 2019-04-10 16:28 | Emergency (ER) | payer MEDICAID, SELFPAY ==
[2019-04-10 16:29] VITALS: BP 123/73; PULSE 78; RESP 16; TEMP 37.1; O2SAT 96; BMI 40.4
--- NOTE | 2019-04-10 16:56 | CT_ITS ---
STUDY: CT BRAIN WITHOUT CONTRAST REASON FOR EXAM: Female, 23 years old. Headache and seizures RADIATION DOSAGE (If Supplied By Facility): CTDIvol = ( 44.99 ) mGy, DLP = ( 745.49 ) mGycm TECHNIQUE: Transaxial CT imaging of the brain was performed without administration of intravenous contrast material. Individualized dose optimization techniques were used for this CT. COMPARISON: 09/29/2018 FINDINGS: Normal soft tissue structures. Normal calvarium. Normal size ventricles and extra-axial spaces for the patient's age. Stable faint dense focus in the medial left temporal lobe measuring 10 x 7 mm on image 16 of series 2. 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 Consider correlation with postcontrast MRI to confirm this if clinically indicated. Normal basal ganglia and thalami. Normal brainstem. Normal cerebellum. There is no intracranial hemorrhage. There are no findings of an acute ischemic infarction. Normal visualized paranasal sinuses. CT/Brain/Head without Contrast IMPRESSION: Stable faint dense focus in the medial left temporal lobe measuring 10 x 7 mm. 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 Consider correlation with postcontrast MRI to confirm this if clinically indicated. No new infarcts or hemorrhages are detected. Comment: If there is clinical concern for a seizure focus that is not apparent by CT, MRI should be considered if possible. Electronically Signed: Osmani Faith MD at 17:46 EST Tel , Service support ,
--- NOTE | 2019-04-10 17:33 | ED.DCSUM_ITS ---
History of Present Illness <ClarkHaley - Last Filed: 04/10/19 18:03> Informant: Patient Onset: Yesterday Context: Gradual Onset Timing: Continuous Quality: Aching Location: head Current Severity: Moderate Maximum Severity: Moderate Worsened by: Nothing Relieved by: Nothing Associated Symptoms: Denies Narrative: 23-year-old female history of cavernous hemangioma and epilepsy presents to the emergency department with a headache. She also had 2 seizures today. She has absent seizures. She is on Vimpat. She states that she had 2 absence seizures today. She states that she has these frequently but over the past few months has had them less frequently less than a few times a month. She is concerned for worsening of her hemangioma. She states that normally when she gets headaches they perform a CT scan to check on it and she is refusing me dications for her headache at this time. She took Motrin and Tylenol earlier today. She has not had any difficulties with speech or ambulation. She was able to drive herself here. She has not had visual changes. She has not had any numbness tingling or weakness. No head trauma. No fevers or vomiting. She denies missing any doses of her antiepileptics. Prior similar symptoms: Yes Recent Illness/Hospitalization: No <Castro Diaz - Last Filed: 04/10/19 18:12> Chief Complaint: Headache Past Medical History <ClarkHaley hall - Last Filed: 04/10/19 18:03> Prior records reviewed: Yes Past Medical History: - - Epilepsy, cavernous hemangioma Surgical History: no surgical history, - - Status post bilateral tubal ligation 10 to 11 months ago. Failed placement of IUD last month. Smoking Status: Never smoker <Castro Diaz - Last Filed: 04/10/19 18:12> - Allergies and Home Meds Allergies/Adverse Reactions: Allergies amoxicillin [Amoxicillin] Allergy (Verified 04/10/19 16:29) Rash clarithromycin [From Biaxin] Allergy (Verified 04/10/19 16:29) Rash soy Allergy (Verified 04/10/19 16:29) Anaphylaxis lactose Adverse Reaction (Verified 04/10/19 16:29) Upset Stomach latex Adverse Reaction (Verified 04/10/19 16:29) Rash Primary Care Physician: Sherri Brown MD [Primary Care Provider] - Review of Systems All systems negative except as indicated General: Denies: Chills, Fever, Malaise, Subjective, Sweats, Weight loss, - Eyes: Denies: Visual changes - left, Visual changes - right, Visual changes - bilaterally, Blurred vision - left, Blurred vision - right, Blurred Vision - bi laterally, Diplopia, -, - Cardiovascular: Denies: Chest pain, Palpitations, Heart racing, -, - Respiratory: Denies: Dyspnea, Cough, Sputum, Dyspnea on exertion, Orthopnea, Paroxysmal nocturnal dyspnea, -, - Gastrointestinal: Denies: Abdominal pain, Nausea, Vomiting, Diarrhea, Constipation, Melena, Hematochezia, -, - Neurological: Reports: Headache. Denies: Weakness, Parasthesia, Numbness <Castro Diaz - Last Filed: 04/10/19 18:12> Physical Exam Vital Signs/Narrative: Vital Signs Temp Pulse Resp BP Pulse Ox 04/10/19 16:29 98.7 F 78 16 123/73 H 96 <Haley Clark - Last Filed: 04/10/19 18:03> Vital Signs/Narrative: Vital Signs Temp Pulse Resp BP Pulse Ox 04/10/19 16:29 98.7 F 78 16 123/73 H 96 Inital Vital Signs reviewed: Yes General: Well nourished, Well developed, No Acute Distress Head: Normocephalic, Atraumatic Eyes: Perrl, EOMI, - - No nystagmus ENT: Moist mucous membranes Neck: Supple, Nontender, No lymphadenopathy, No JVD Cardiovascular: Regular rate, Regular rhythm, No murmurs Respiratory: No distress, CTA bilaterally, Chest nontender Abdomen: Soft, Nontender, Nondistended, Normal bowel sounds, No masses Back: Nontender, Normal Inspection Extremities: Nontender, No edema Skin: Normal color, No rash Neurological: Alert, Oriented x3, Cranial nerves II-XII grossly intact, Normal Strength, Normal Sensation, Normal Gait <Castro Diaz - Last Filed: 04/10/19 18:12> Diagnostic/Tx/Re-eval Impressions Brain CT 04/10/19 16:56 IMPRESSION: Stable faint dense focus in the medial left temporal lobe measuring 10 x 7 mm. 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 Consider correlation with postcontrast MRI to confirm this if clinically indicated. No new infarcts or hemorrhages are detected. Comment: If there is clinical concern for a seizure focus that is not apparent by CT, MRI should be considered if possible. Electronically Signed: Osmani Faith MD at 17:46 EST Tel , Service support , 04/10/19 16:56 CT Brain [Brain/Head without Contrast] [CT] Stat - Medical Decision Making Patient states she had only taken Tylenol ibuprofen prior to arrival, she did not want anything further for pain. CT scan shows no significant changes when compared to prior. Patient is reassured with this. She will follow-up with her neurologist. Attending note: Patient seen and evaluated with PA. Patient presents with headache after having to absent seizures today. She does have a history of epilepsy. Patient states she knows she has a vascular abnormality in her brain and just wanted to ensure that that had not significantly changed in size. Head neck examination unremarkable. Heart regular rate and rhythm. Lung sounds clear. Abdomen is soft nontender. Neuro exam normal. CT scan reveals no significant change when compared to prior. She is reassured with this finding and will follow up with her neurologist. <Haley Clark - Last Filed: 04/10/19 18:03> ED Disposition <Haley Clark - Last Filed: 04/10/19 18:03> <Castro Diaz - Last Filed: 04/10/19 18:12> - Plan for ED Patient: Disposition: Home or Assisted Living Diagnosis: Cephalgia Instructions: HEADACHE, Unspecified Referrals: Sherri Brown MD [Primary Care Provider] - Additional Instructions: Follow-up with your neurologist as discussed.
[2019-04-10 18:10] VITALS: BP 111/66; PULSE 74; RESP 16
== END 2019-04-10 18:12 | disposition home or self-care (01) ==
PROVIDERS: Emergency Provider Physician Assistant Medical; Family Provider Internal Medicine; PCP Internal Medicine
DX: R51 Headache (principal); D18.02 Hemangioma of intracranial structures; G40.A09 Absence epileptic syndrome, not intractable, without status epilepticus; Z79.899 Other long term (current) drug therapy
CPT/HCPCS: 70450; 99282

== ENCOUNTER 2019-06-08 14:22 | Emergency (ER) | payer MEDICAID, SELFPAY ==
[2019-06-08 14:23] VITALS: BP 112/66; PULSE 87; RESP 16; TEMP 36.3; O2SAT 98; BMI 40.7
--- NOTE | 2019-06-08 14:46 | CT_ITS ---
STUDY: CT BRAIN WITHOUT CONTRAST REASON FOR EXAM: Female, 24 years old. HIT HEAD ON CAR DOOR TODAY. HISTORY OF CAVERNOUS ANGIOMA RADIATION DOSAGE (If Supplied By Facility): CTDIvol = ( 44.99 ) mGy, DLP = ( 772.22 ) mGycm TECHNIQUE: Transaxial CT imaging of the brain was performed without administration of intravenous contrast material. Individualized dose optimization techniques were used for this CT. COMPARISON: 04/10/2019 FINDINGS: Normal soft tissue structures. Normal calvarium. Normal size ventricles and extra-axial spaces for the patient''s age. Normal white matter tracts of the cerebral hemispheres. Normal basal ganglia and thalami. Normal brainstem. Normal cerebellum. There is no intracranial hemorrhage. Focal area of increased density in the posterior left temporal lobe is stable and has been described on multiple prior studies, compatible with a developmental venous anomaly. There are no findings of an acute ischemic infarction. Normal visualized paranasal sinuses. CT/Brain/Head without Contrast IMPRESSION: 1. No acute intracranial hemorrhage or mass effect. Stable exam. 2. 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 Electronically Signed: Miguel Reddy MD (Brooks) at 15:18 EST , Service support ,
--- NOTE | 2019-06-08 14:48 | ED.VIS.GEN ---
History of Present Illness Chief Complaint: Head Injury Informant: Patient Onset: Today Current Severity: Mild Maximum Severity: Moderate Narrative: Patient presents after striking the top of her head against the side of the car while placing her child in the backseat. Patient states she has a headache and feels very fatigued and nauseated. She has a history of cavernous angioma in her brain. She has not taken anything for headache. There was no loss of consciousness. Injury occurred approximate hour and a half ago. - Past Medical History (1) Cavernous hemangioma Status: Chronic (2) Epilepsy Status: Chronic Past Medical History - Allergies and Home Meds Allergies/Adverse Reactions: Allergies amoxicillin [Amoxicillin] Allergy (Verified 06/08/19 14:23) Rash clarithromycin [From Biaxin] Allergy (Verified 06/08/19 14:23) Rash soy Allergy (Verified 06/08/19 14:23) Anaphylaxis lactose Adverse Reaction (Verified 06/08/19 14:23) Upset Stomach latex Adverse Reaction (Verified 06/08/19 14:23) Rash Primary Care Physician: Sherri Brown MD [Primary Care Provider] - Prior records reviewed: Yes Surgical History: no surgical history, - - Status post bilateral tubal ligation 10 to 11 months ago. Failed placement of IUD last month. Lives: With Family Smoking Status: Never smoker Review of Systems General: Denies: Chills, Fever Eyes: Denies: Visual changes - bilaterally ENT: Denies: Bilateral ear pain Cardiovascular: Denies: Chest pain Respiratory: Denies: Dyspnea, Cough Gastrointestinal: Reports: Nausea. Denies: Abdominal pain, Vomiting, Diarrhea Musculoskeletal: Denies: Neck pain, Extremity Pain Neurological: Reports: Headache. Denies: Weakness, Numbness Allergy: Denies: Uticaria Physical Exam Vital Signs/Narrative: Vital Signs Temp Pulse Resp BP Pulse Ox 06/08/19 14:23 97.4 F L 87 16 112/66 98 Inital Vital Signs reviewed: Yes General: Well nourished, Well developed Head: Normocephalic Eyes: Perrl, EOMI ENT: Moist mucous membranes Neck: Supple Cardiovascular: Regular rate, Regular rhythm Respiratory: No distress, CTA bilaterally Abdomen: Soft, Nontender Extremities: Nontender Skin: Normal color, No rash Neurological: Alert, Oriented x3, Normal Strength, Normal Sensation Psychological: Normal affect Diagnostic/Tx/Re-eval Impressions Brain CT 06/08/19 14:46 IMPRESSION: 1. No acute intracranial hemorrhage or mass effect. Stable exam. 2. 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 Electronically Signed: Miguel Reddy MD (Brooks) at 15:18 EST , Service support , 06/08/19 14:46 CT Head [Brain/Head without Contrast] [CT] Stat - Medical Decision Making Patient was given Tylenol and Zofran on arrival here. CT scan is unremarkable. Patient will be discharged home with closed head injury instructions. ED Disposition - Plan for ED Patient: Disposition: Home or Assisted Living Diagnosis: Closed head injury Instructions: SCALP CONTUSION, No Wake Up Referrals: Sherri Brown MD [Primary Care Provider] - As Needed
[2019-06-08] MEDS: Acetaminophen 500 MG Tablet 1000 MG PO (15:37)
[2019-06-08] MEDS: Ondansetron ODT 4 MG Tablet PO (15:37)
== END 2019-06-08 15:50 | disposition home or self-care (01) ==
PROVIDERS: Emergency Provider Emergency Medicine; Family Provider Internal Medicine; PCP Internal Medicine
DX: S09.90XA Unspecified injury of head, initial encounter (principal); W22.09XA Striking against other stationary object, initial encounter; Y93.9 Activity, unspecified; Y92.9 Unspecified place or not applicable; Y99.9 Unspecified external cause status; G40.909 Epilepsy, unspecified, not intractable, without status epilepticus; D18.02 Hemangioma of intracranial structures; Z79.899 Other long term (current) drug therapy; Z88.0 Allergy status to penicillin; Z98.51 Tubal ligation status
CPT/HCPCS: 70450; 99283

== ENCOUNTER 2019-10-23 20:56 | Emergency (ER) | payer MEDICAID, SELFPAY ==
[2019-10-23 20:57] VITALS: BP 110/68; PULSE 79; RESP 16; TEMP 36.1; O2SAT 97; BMI 41.5
--- NOTE | 2019-10-23 21:06 | RAD_ITS ---
STUDY: X-RAY CHEST REASON FOR EXAM: Female, 24 years old. INTERMITTENT CHEST PAIN X A COUPLE DAYS TECHNIQUE: Single frontal view of the chest. COMPARISON: 09/02/2018 FINDINGS: Cardiac silhouette unremarkable. Pulmonary vascularity unremarkable. Aorta unremarkable. No focal airspace opacities. No pleural effusions. Upper abdomen unremarkable. Osseous structures intact. No pneumothorax. RAD/Chest 1 View (Portable) IMPRESSION: No acute cardiopulmonary findings Electronically Signed: Shimon Levine, at 22:06 EDT Tel , Service support ,
[2019-10-23] MEDS: 0.9% Normal Saline 1,000 ML 150 ML IV (21:29)
[2019-10-23 21:39] LABS: Absolute Lymphocyte Count 4.75 X10^3/uL (0.83-4.51); Absolute Neutrophil Count 3.7 X10^3/uL (2.0-7.7); Basophil# 0.02 X10^3/uL; Basophil% 0.2 % (0-1); Eosinophil# 0.07 X10^3/uL; Eosinophils% 0.8 % (0-5); Hematocrit 37.7 % (37-47); Hemoglobin 12.9 g/dL (12.0-15.0); Lymphocyte # 4.75 X10^3/ul (4.0); Lymphocyte % 51.9 % (19-41); Mean Corp Hgb Conc 34.2 g/dL (32-36); Mean Corpuscular Hgb 30.1 pg (27.0-32.0); Mean Corpuscular Volume 87.9 fL (81-99); Mean Platelet Vol. 10.1 fl (6.2-12.0); Monocyte# 0.65 X10^3/uL; Monocyte% 7.1 % (0-10); NRBC Flagged by Analyzer 0 % (0-5); Neutrophil # 3.65 X10^3/uL (2.7-7.7); Neutrophil % 39.9 % (47-70); Platelet Count 178 K/mm3 (150-450); RBC Distribution Width CV 12.5 % (11.6-14.6); RBC Distribution Width SD 39.8 fl (35.1-43.9); Red Blood Count 4.29 M/mm3 (4.2-5.4); White Blood Count 9.2 K/mm3 (4.4-11.0)
[2019-10-23 21:56] LABS: D-Dimer Quantitative (DVT/PE) 0.28 FEU/ug/m (0.27-0.49)
[2019-10-23 21:57] VITALS: BP 106/66; PULSE 82; O2SAT 97
--- NOTE | 2019-10-23 21:58 | EKG12_ITS ---
Test Reason : CP Blood Pressure : / mmHG Vent. Rate : 082 BPM Atrial Rate : 082 BPM P-R Int : 184 ms QRS Dur : 080 ms QT Int : 370 ms P-R-T Axes : 060 033 028 degrees QTc Int : 432 ms Normal sinus rhythm Normal ECG Confirmed by LIYA FLOWER MD ([id number]), business editor JIMMY GUERRERO ([id number]) on 10/25/2019 3:40:27 PM Referred By: ANNMARIE Confirmed By:LIYA FLOWER MD
[2019-10-23 21:59] LABS: Anion Gap 5 (5-15); BUN 13 mg/dL (7-18); Calcium,Total 8.7 mg/dL (8.5-10.1); Chloride 108 mmol/L (98-107); Creatinine, Serum 0.87 mg/dL (0.55-1.02); EST Glomerular Filtration Rate 84 mL/min (>60); Est Glom Filt Rate - Afr Amer 101 mL/min (>60); Estimated Creatinine Clearance 73.94 ml/min; Glucose 91 mg/dL (74-106); Sodium Level 140 mmol/L (136-145)
[2019-10-23 22:08] VITALS: PULSE 78; RESP 15; O2SAT 97
--- NOTE | 2019-10-23 22:08 | ED.DCSUM_ITS ---
- ER Visit Summary Date of Service: 10/23/19 Chief Complaint: [Chest pain] History of Present Illness: The patient is a 24 F [presents to the emergency department with pain that started 3 to 4 days ago. She describes an achy discomfort/pressure that intermittent. Patient states is not exertional and food does not seem to affected. It can come on at rest. Patient also is noted some swelling in her hands and in her feet then she became concerned about that. She denies recent travel or surgery. There is no family history of heart disease. Patient has history of epilepsy and history of a cavernous hemangioma on her brain that has bled in the past with pregnancies. She has not required any type of surgical intervention for her cavernous hemangiomas. She denies any headaches. She denies any fever or cough. She denies body aches.] Physical Examination: [HEENT-PERRLA, EOMI. Cranial nerves II through XII grossly intact. TMs clear. Mucous membranes moist. No adenopathy. Cardiovascular-regular rate and rhythm without murmur or ectopy Lungs-clear to auscultation, chest wall stable without crepitus or subcu emphysema Abdomen-normoactive bowel sounds, soft, nontender, no rebound or rigidity, no peritoneal signs. Extremities-intact ?4, normal range of motion, normal pulses, atraumatic] Test Results: [EKG obtained arrival shows sinus rhythm with a ventricular rate of 82 bpm with no acute segment changes. CBC with differential was normal. Chemistries were normal. Troponin was less than 0.015. D-dimer was 0.28. X- ray was normal.] Emergency Department Course and Treatment: [On arrival patient had an IV line established and she was placed on a cardiac catheterization technician.] Treatment Plan: [Patient advised to follow-up with her primary care physician in 3 to 5 days. Advised to return if increasing shortness of breath worsening chest pain, or condition should worsen anyway.] Disposition: [Discharged home in stable condition.] Impression: [Chest pain-etiology uncertain] This note was generated with [employer] software. It may contain incorrect words, spelling, and punctuation that were not noted in review of the chart prior to signing ED Disposition - Plan for ED Patient: Referrals: Sherri Brown MD [Primary Care Provider] -
--- NOTE | 2019-10-23 22:10 | ED.DEP ---
ED Disposition - Plan for ED Patient: Instructions: ED Chest Pain Atypical Unkn Cause Referrals: Sherri Brown MD [Primary Care Provider] - 3-5 Days
== END 2019-10-23 22:23 | disposition home or self-care (01) ==
LOC: ED 21:54
PROVIDERS: Emergency Provider Emergency Medicine; PCP Internal Medicine
DX: R07.9 Chest pain, unspecified (principal); G40.909 Epilepsy, unspecified, not intractable, without status epilepticus
CPT/HCPCS: 71045; 80048; 84484; 85025; 85379; 93005; 96360; 99283; J7030; A4216

== ENCOUNTER → 2020-01-05 11:27 | Outpatient (CLI) | payer MEDICAID, SELFPAY ==
[2020-01-10 16:59] LABS: HPV APTIMA, High Risk Negative (Negative)
== END ==
PROVIDERS: PCP Internal Medicine; Visit Provider Obstetrics & Gynecology
DX: Z12.4 Encounter for screening for malignant neoplasm of cervix (principal)
CPT/HCPCS: 87624; 88175; G0145

== ENCOUNTER → 2020-03-28 17:53 | Outpatient (CLI) | payer MEDICAID, SELFPAY | PROVIDERS: PCP Internal Medicine; Referring Provider Nurse Practitioner Adult Health; Visit Provider Nurse Practitioner Adult Health | DX: Z20.828 Contact with and (suspected) exposure to other viral communicable diseases (principal) | CPT/HCPCS: 87635; C9803; U0003 ==

== ENCOUNTER 2020-10-21 15:26 | Emergency (ER) | payer MEDICAID, SELFPAY ==
[2020-10-21 15:26] VITALS: BP 113/63; PULSE 89; RESP 16; TEMP 36.7; O2SAT 96; BMI 40.8
--- NOTE | 2020-10-21 15:36 | CT_ITS ---
EXAM: CT HEAD WITHOUT INTRAVENOUS CONTRAST : 1995 CLINICAL INDICATION: injury TECHNIQUE: Multiple axial images were obtained of the head without intravenous contrast. This CT exam was performed using one or more of the following dose reduction techniques: automated exposure control, adjustment of the mA and/or kV according to patient size, and/or use of iterative reconstruction technique. This report was created using [employer] report generation technology. COMPARISON: 06/08/2019 FINDINGS: BRAIN AND EXTRA-AXIAL SPACES: See below. BONES/JOINTS: Since reference examination the patient has had a left sided craniotomy. There is encephalomalacia along the posterior left temporal lobe in the site of a previously described vascular malformation. No discrete lytic or blastic abnormalities. SINUSES: Unremarkable as visualized. Clear. MASTOID AIR CELLS: Unremarkable. Clear. ORBITS: Visualized globes, extraocular muscles, optic nerves and retrobulbar fat appear unremarkable. CT/Brain/Head without Contrast IMPRESSION: 1. No acute intracranial abnormality. 2. Postsurgical changes from a left craniectomy. Individualized dose optimization techniques were used for this CT. at 1627 Reported and signed by: Jordi Fields MD Electronically Signed: Jordi Fields MD at 16:26 EDT Tel , Service support ,
--- NOTE | 2020-10-21 15:37 | EX.ED.DYSGE1 ---
HPI History of Present Illness Chief Complaint: Head Injury Informant: patient Onset/Context/Timing Onset: Days (3 days) Context: Gradual Onset Timing: Waxes and wanes Current Severity: Mild Maximum Severity: Moderate Narrative Narrative: Patient presents with pain around her left eye and zygomatic arch after being kicked by her daughter accidentally. Patient's primary concern is that she had brain surgery last April secondary to a cavernous hemangioma. She denies significant headache. She did have an episode earlier today where she felt lightheaded and nauseous. [facility] Medical History (Updated 10/21/20 @ 16:[address] Haley Clark MD) Cavernous hemangioma of brain Epilepsy HSV (herpes simplex virus) infection Post depression Home Medications citalopram 20 mg PO DAILY 11/02/18 [History Last Taken Unknown] lacosamide 250 mg PO BID 02/02/19 [History Last Taken Unknown] loratadine 10 mg PO DAILY 02/02/19 [History Last Taken Unknown] norgestimate-ethinyl estradiol 1 tab PO DAILY 02/02/19 [History Last Taken Unknown] valacyclovir 500 mg PO DAILY 02/02/19 [History Last Taken Unknown] L. acidophilus-L. rhamnosus 1 ea PO DAILY 10/23/19 [History Last Taken Unknown] buspirone 5 mg PO BID 10/23/19 [History Last Taken Unknown] Allergy/AdvReac Type Severity Reaction Status Date / Time amoxicillin [Amoxicillin] Allergy Rash Verified 10/21/20 15:29 clarithromycin [From Biaxin] Allergy Rash Verified 10/21/20 15:29 soy Allergy Anaphylaxis Verified 10/21/20 15:29 lactose AdvReac Upset Verified 10/21/20 15:29 Stomach latex AdvReac Rash Verified 10/21/20 15:29 Surgical History (Updated 10/21/20 @ 15:[address] Haley Clark MD) delivery delivered History of brain surgery Social History Smoking Status: Former smoker alcohol intake: never caffeine: Yes what type of physical activity do you participate in: none seatbelt use: always do you feel safe at home: Yes additional social history: single ROS ROS ED Constitutional Constitutional ED: Denies chills or fever(s) Eyes Eyes: Reports other Details: Facial pain on the lateral portion of the left eye. ; Denies change in vision ENT ENT ED: Denies sore throat Cardiovascular Cardiovascular: Denies chest pain Respiratory/Chest Respiratory/Chest: Denies cough or dyspnea Gastrointestinal Gastrointestinal: Reports nausea; Denies abdominal pain, diarrhea or vomiting Genitourinary Genitourinary ED: Denies dysuria Musculoskeletal Musculoskeletal: Denies back pain Integumentary Denies rash Neurologic Neurologic: Denies headache(s) or weakness Psychiatric Psychiatric: Denies anxiety or depression Endocrine Endocrinology: Denies polydipsia or polyuria Allergic/Immunologic Allergic/Immunologic ED: Denies urticaria EXAM Physical Exam Const Vital Signs: 10/21/20 15:26 10/21/20 15:43 Temperature 98.0 F Temperature Source Temporal Pulse Rate 89 Respiratory Rate 16 Respiratory Effort Normal Non-Labored Blood Pressure 113/63 Blood Pressure Mean 79 Pulse Ox 96 Oxygen Delivery Method Room Air Room Air Positive well nourished and well developed General Appearance ED: well developed HEENT Reports normocephalic and head/scalp atraumatic Face and Sinus: face symmetric and facial tenderness left (Left lateral orbital rim and left zygoma.) Eyes PERRL and EOMs intact bilaterally Neck supple Neck Narrative: No C-spine tenderness. Chest Wall inspection of chest normal and palpation of chest normal Resp normal respiratory effort and clear to auscultation bilaterally Cardio regular rate and regular rhythm GI normal to inspection, nondistended, normoactive bowel sounds Palpation: soft Back/Spine no CVA tenderness Extremity normal to inspection Neuro oriented x3 and no sensory deficits noted Sensorium / Orientation: alert Motor Exam: strength 5/5 throughout Psych mental status grossly normal Skin no rashes or lesions noted MDM MDM Radiography Diagnostic Testing: Radiology Impression Brain CT 10/21/20 15:36 IMPRESSION: 1. No acute intracranial abnormality. 2. Postsurgical changes from a left craniectomy. Individualized dose optimization techniques were used for this CT. at 1627 Reported and signed by: Jordi Fields MD Electronically Signed: Jordi Fields MD at 16:26 EDT Tel , Service support , Treatment and Re-Evaluation Comments:: CT scan of the head is unremarkable. Postsurgical changes are noted. No acute findings. Patient is reassured with this and will continue her home medications as needed. Discharge Plan Triage Chief Complaint: Head Injury ED Provider: Haley Clark Dx/Rx/DC Orders Clinical Impression: Contusion of face Instructions: ED Facial Contusion Prescriptions: No Action citalopram 20 MG tablet 20 mg PO DAILY RF: 0 norgestimate-ethinyl estradiol 0 tablet 1 tab PO DAILY RF: 0 valacyclovir 500 tablet 500 mg PO DAILY RF: 0 loratadine 10 MG tablet 10 mg PO DAILY RF: 0 lacosamide 100 MG tablet 250 mg PO BID RF: 0 buspirone 5 MG tablet 5 mg PO BID RF: 0 L. acidophilus-L. rhamnosus 1 EACH capsule 1 ea PO DAILY RF: 0 Primary Care Provider: Sherri Brown Referrals: Sherri Brown MD [Primary Care Provider] - 3-5 Days if not improving Disposition Disposition: Home, self care
== END 2020-10-21 16:55 | disposition home or self-care (01) ==
PROVIDERS: Emergency Provider Emergency Medicine; PCP Internal Medicine
DX: S00.83XA Contusion of other part of head, initial encounter (principal); W50.1XXA Accidental kick by another person, initial encounter; Y93.9 Activity, unspecified; Y92.9 Unspecified place or not applicable; G40.909 Epilepsy, unspecified, not intractable, without status epilepticus; Z86.011 Personal history of benign neoplasm of the brain; Z79.899 Other long term (current) drug therapy; Z87.891 Personal history of nicotine dependence
CPT/HCPCS: 70450; 99283

== ENCOUNTER 2020-11-10 22:36 | Emergency (ER) | payer MEDICAID, SELFPAY ==
[2020-11-10 22:36] VITALS: BP 123/70; PULSE 81; RESP 16; TEMP 36.7; O2SAT 97; BMI 40.8
--- NOTE | 2020-11-10 22:56 | EX.ED.DYSGE1 ---
HPI History of Present Illness Chief Complaint: Rash Informant: patient Onset/Context/Timing Onset: - (40 minutes) Context: Sudden Onset Timing: Continuous Quality: Pruritic Location: Right shoulder, right forearm, right hand Worsened by: Nothing Relieved by: Scratching Narrative Narrative: Patient presents with a rash that began 40 minutes prior to arrival. Patient states the rash is over her right posterior shoulder and right forearm and right hand. Patient states the rash is pruritic. Patient denies any new soaps, shampoos, laundry detergents, fabric softeners, foods, or other new exposures. Patient states the itching improves with scratching. Patient states nothing makes it worse. Patient states she was mowing the yard a couple days ago and does not know if she came in contact with anything there. Patient states she got a new chair but does not think that there is anything that would cause her rash from the chair. Patient denies any difficulty breathing or difficulty swallowing. [facility] Medical History Cavernous hemangioma of brain Epilepsy HSV (herpes simplex virus) infection Post depression Home Medications citalopram 20 mg PO DAILY 11/02/18 [History Last Taken Unknown] lacosamide 250 mg PO BID 02/02/19 [History Last Taken Unknown] loratadine 10 mg PO DAILY 02/02/19 [History Last Taken Unknown] norgestimate-ethinyl estradiol 1 tab PO DAILY 02/02/19 [History Last Taken Unknown] valacyclovir 500 mg PO DAILY 02/02/19 [History Last Taken Unknown] L. acidophilus-L. rhamnosus 1 ea PO DAILY 10/23/19 [History Last Taken Unknown] buspirone 5 mg PO BID 10/23/19 [History Last Taken Unknown] clobazam 20 mg PO DAILY 11/10/20 [History Last Taken Unknown] hydrocortisone 1 applic TOPICAL BID #20 g 11/10/20 [Rx Last Taken Unknown] Allergy/AdvReac Type Severity Reaction Status Date / Time amoxicillin [Amoxicillin] Allergy Rash Verified 11/10/20 22:38 clarithromycin [From Biaxin] Allergy Rash Verified 11/10/20 22:38 soy Allergy Anaphylaxis Verified 11/10/20 22:38 lactose AdvReac Upset Verified 11/10/20 22:38 Stomach latex AdvReac Rash Verified 11/10/20 22:38 Surgical History delivery delivered History of brain surgery Social History Smoking Status: Former smoker alcohol intake: never caffeine: Yes what type of physical activity do you participate in: none seatbelt use: always do you feel safe at home: Yes additional social history: single ROS ROS ED Constitutional Constitutional ED: Denies chills or fever(s) Eyes Eyes: Denies blurry vision or change in vision ENT ENT ED: Denies rhinorrhea or sore throat Cardiovascular Cardiovascular: Denies chest pain or palpitations Respiratory/Chest Respiratory/Chest: Denies cough or dyspnea Gastrointestinal Gastrointestinal: Denies nausea or vomiting Genitourinary Genitourinary ED: Denies dysuria or hematuria Musculoskeletal Musculoskeletal: Denies back pain or neck pain Integumentary Reports rash; Denies abscess Neurologic Neurologic: Denies headache(s) or weakness Psychiatric Psychiatric: Reports anxiety Allergic/Immunologic Allergic/Immunologic ED: Denies mouth swelling or urticaria EXAM Physical Exam Const Vital Signs: 11/10/20 22:36 Temperature 98.1 F Temperature Source Temporal Pulse Rate 81 Respiratory Rate 16 Blood Pressure 123/70 H Blood Pressure Mean 87 Pulse Ox 97 Oxygen Delivery Method Room Air Positive well nourished, well developed and obese General Appearance ED: well developed Nutritional Appearance: obese HEENT Reports moist mucous membranes Neck supple and no JVD Neuro oriented x3, CN's II-XII intact bilaterally and no sensory deficits noted Sensorium / Orientation: alert Motor Exam: strength 5/5 throughout Psych mental status grossly normal Skin Skin Narrative: There is a patchy erythematous macular rash over the posterior aspect of the right shoulder and dorsal aspect of the right distal forearm and right hand over the distal fifth metacarpal. There are no vesicles or pustules. There are no petechia. There is no discharge or drainage. There is no warmth. There is no involvement of the mucous membranes. MDM MDM MDM Narrative Medical decision making narrative: Patient was advised that this may be a contact dermatitis. Patient was given a prescription for hydrocortisone cream. Patient was instructed to take Benadryl as needed for itching. Patient was instructed to follow-up with her primary care physician in 3 to 5 days for further evaluation. Patient understood and was agreeable with the plan. All questions were answered. Discharge Plan Triage Chief Complaint: Rash ED Provider: Moises Cedeno Dx/Rx/DC Orders Clinical Impression: Contact dermatitis Instructions: ED Contact Dermatitis Prescriptions: New hydrocortisone 2.5 % cream 1 applic topical BID Qty: 20 RF: 0 No Action citalopram 20 MG tablet 20 mg PO DAILY RF: 0 norgestimate-ethinyl estradiol 0 tablet 1 tab PO DAILY RF: 0 valacyclovir 500 tablet 500 mg PO DAILY RF: 0 loratadine 10 MG tablet 10 mg PO DAILY RF: 0 lacosamide 100 MG tablet 250 mg PO BID RF: 0 buspirone 5 MG tablet 5 mg PO BID RF: 0 L. acidophilus-L. rhamnosus 1 EACH capsule 1 ea PO DAILY RF: 0 clobazam 20 mg tablet 20 mg PO DAILY RF: 0 Primary Care Provider: Sherri Brown Referrals: Sherri Brown MD [Primary Care Provider] - 3-5 Days Disposition Disposition: Home, self care
== END 2020-11-10 23:10 | disposition home or self-care (01) ==
PROVIDERS: Emergency Provider Emergency Medicine; PCP Internal Medicine
DX: L25.9 Unspecified contact dermatitis, unspecified cause (principal); E66.9 Obesity, unspecified; Z87.891 Personal history of nicotine dependence; Z79.899 Other long term (current) drug therapy
CPT/HCPCS: 99282

== ENCOUNTER 2021-04-22 19:04 | Emergency (ER) | payer MEDICAID, SELFPAY ==
[2021-04-22 19:04] VITALS: BP 130/83; PULSE 78; RESP 16; TEMP 36.6; O2SAT 98; BMI 39.2
--- NOTE | 2021-04-22 19:32 | EDS_ITS ---
HPI History of Present Illness Chief Complaint: Abd Pain Informant: patient Narrative Narrative: 26-year-old female states that 1 hour prior to arrival she had a sudden onset of pain in the right lower quadrant of her abdomen. No reported fevers or urinary symptoms. Pain does not radiate to the back. She has no history of kidney stones but does note a history of PCOS and wonders if this could be a ovarian cyst. [facility] Medical History Cavernous hemangioma of brain Epilepsy HSV (herpes simplex virus) infection Post depression Home Medications citalopram 20 mg PO DAILY 11/02/18 [History Last Taken Unknown] lacosamide 250 mg PO BID 02/02/19 [History Last Taken Unknown] loratadine 10 mg PO DAILY 02/02/19 [History Last Taken Unknown] norgestimate-ethinyl estradiol 1 tab PO DAILY 02/02/19 [History Last Taken Unknown] valacyclovir 500 mg PO DAILY 02/02/19 [History Last Taken Unknown] L. acidophilus-L. rhamnosus 1 ea PO DAILY 10/23/19 [History Last Taken Unknown] buspirone 5 mg PO BID 10/23/19 [History Last Taken Unknown] clobazam 20 mg PO DAILY 11/10/20 [History Last Taken Unknown] hydrocortisone 1 applic TOPICAL BID #20 g 11/10/20 [Rx Last Taken Unknown] Allergy/AdvReac Type Severity Reaction Status Date / Time amoxicillin [Amoxicillin] Allergy Rash Verified 04/22/21 19:05 clarithromycin [From Biaxin] Allergy Rash Verified 04/22/21 19:05 soy Allergy Anaphylaxis Verified 04/22/21 19:05 lactose AdvReac Upset Verified 04/22/21 19:05 Stomach latex AdvReac Rash Verified 04/22/21 19:05 Surgical History delivery delivered History of brain surgery Social History Smoking Status: Former smoker alcohol intake: never caffeine: Yes what type of physical activity do you participate in: none seatbelt use: always do you feel safe at home: Yes additional social history: single ROS ROS ED Constitutional Constitutional ED: Denies chills, fever(s) or weight loss Eyes Eyes: Denies change in vision or diplopia ENT ENT ED: Denies ear pain, rhinorrhea or sore throat Cardiovascular Cardiovascular: Denies chest pain, orthopnea, palpitations or racing heartbeat Respiratory/Chest Respiratory/Chest: Denies cough, dyspnea or orthopnea Gastrointestinal Gastrointestinal: Reports abdominal pain and nausea; Denies diarrhea or vomiting Genitourinary Genitourinary ED: Denies dysuria, hematuria or urinary frequency Musculoskeletal Musculoskeletal: Denies arthralgias or myalgias Integumentary Denies abscess or rash Neurologic Neurologic: Denies headache(s) or weakness Psychiatric Psychiatric: Denies anxiety, depression, suicidal ideation or suicidal thoughts Endocrine Endocrinology: Denies polydipsia, polyphagia or polyuria Allergic/Immunologic Allergic/Immunologic ED: Denies mouth swelling, tongue swelling or urticaria EXAM Physical Exam Const Vital Signs: 04/22/21 19:04 Temperature 97.9 F Temperature Source Temporal Pulse Rate 78 Respiratory Rate 16 Blood Pressure 130/83 H Blood Pressure Mean 98 Pulse Ox 98 Oxygen Delivery Method Room Air Positive well nourished, well developed and obese General Appearance ED: well developed Nutritional Appearance: obese HEENT Reports normocephalic, head/scalp atraumatic, TM's clear and moist mucous membranes Negative for trauma Tympanic Membrane ED: Yes TM's clear Eyes PERRL and EOMs intact bilaterally Neck no lymphadenopathy, supple and no JVD Resp normal respiratory effort and clear to auscultation bilaterally Cardio regular rate, regular rhythm and no murmurs GI normal to inspection, nondistended, normoactive bowel sounds and non-tender Palpation: soft Back/Spine no CVA tenderness and normal ROM Extremity normal to inspection General Extremety ED: Negative for edema General Extremity: Negative for edema Neuro oriented x3 and CN's II-XII intact bilaterally Sensorium / Orientation: alert Motor Exam: strength 5/5 throughout Psych mental status grossly normal Mood & Affect: Negative for depressed or tearful Skin no rashes or lesions noted and no wounds MDM MDM MDM Narrative Medical decision making narrative: CBC normal BMP normal urinalysis normal. CT of the abdomen pelvis shows nothing acute. Patient received Toradol and Zofran. At this point I do not see anything to explain her pain. No ovarian cyst appendicitis colitis kidney stone. Patient is comfortable being discharged and observing. If continued symptoms in 24 hours or localizing or changing she should return for evaluation. Lab Data Attestation: I reviewed the patient's lab results. Labs: Laboratory Results - last 24 hr 04/22/21 04/22/21 04/22/21 19:19 19:29 19:29 WBC 7.9 RBC 4.53 Hgb 13.1 Hct 38.8 MCV 85.7 MCH 28.9 MCHC 33.8 RDW Std Deviation 39.2 RDW Coeff of Robbi 12.6 Plt Count 190 MPV 10.3 Immature Gran % (Auto) 0.400 Neut % (Auto) 43.3 L Lymph % (Auto) 43.3 H [place] % (Auto) 9.6 Eos % (Auto) 3.0 Baso % (Auto) 0.4 Absolute Neuts (auto) 3.4 Absolute Lymphs (auto) 3.44 Nucleated RBC % 0 Sodium 137 Potassium 3.9 Chloride 106 Carbon Dioxide 28.0 Anion Gap 3 L BUN 10 Creatinine 0.83 Estim Creat Clear Calc 87.14 Est GFR (MDRD) Af Amer 106 Est GFR (MDRD) Non-Af 87 BUN/Creatinine Ratio 12.1 Glucose 86 Calcium 8.8 Serum , Qual Urine Color Straw Urine Clarity Clear Urine pH 6.5 Ur Specific [place] 1.010 Urine Protein Negative Urine Glucose (UA) Normal Urine Ketones Negative Urine Occult Blood Negative Urine Nitrite Negative Urine Bilirubin Negative Urine Urobilinogen Normal Ur Leukocyte Esterase Negative Urine RBC 0 SEEN Urine WBC 0 SEEN Ur Squamous Epith Cells 0 SEEN Urine Bacteria 0 SEEN Urine Mucus 0 SEEN 04/22/21 19:29 WBC RBC Hgb Hct MCV MCH MCHC RDW Std Deviation RDW Coeff of Robbi Plt Count MPV Immature Gran % (Auto) Neut % (Auto) Lymph % (Auto) [place] % (Auto) Eos % (Auto) Baso % (Auto) Absolute Neuts (auto) Absolute Lymphs (auto) Nucleated RBC % Sodium Potassium Chloride Carbon Dioxide Anion Gap BUN Creatinine Estim Creat Clear Calc Est GFR (MDRD) Af Amer Est GFR (MDRD) Non-Af BUN/Creatinine Ratio Glucose Calcium Serum , Qual NEGATIVE Urine Color Urine Clarity Urine pH Ur Specific [place] Urine Protein Urine Glucose (UA) Urine Ketones Urine Occult Blood Urine Nitrite Urine Bilirubin Urine Urobilinogen Ur Leukocyte Esterase Urine RBC Urine WBC Ur Squamous Epith Cells Urine Bacteria Urine Mucus Radiography Diagnostic Testing: Clinical Impression(s) from Imaging Studies Abdomen/Pelvis CT 04/22/21 20:15 Discharge Plan Triage Chief Complaint: Abd Pain ED Provider: Jimmy Casey Dx/Rx/DC Orders Clinical Impression: Abdominal pain Instructions: ED Abdominal Pain Unkn Cause Fem Prescriptions: No Action citalopram 20 MG tablet 20 mg PO DAILY RF: 0 norgestimate-ethinyl estradiol 0 tablet 1 tab PO DAILY RF: 0 valacyclovir 500 tablet 500 mg PO DAILY RF: 0 loratadine 10 MG tablet 10 mg PO DAILY RF: 0 lacosamide 100 MG tablet 250 mg PO BID RF: 0 buspirone 5 MG tablet 5 mg PO BID RF: 0 L. acidophilus-L. rhamnosus 1 EACH capsule 1 ea PO DAILY RF: 0 clobazam 20 mg tablet 20 mg PO DAILY RF: 0 hydrocortisone 2.5 % cream 1 applic topical BID Qty: 20 RF: 0 Primary Care Provider: Sherri Brown Referrals: Sherri Brown MD [Primary Care Provider] - 1-2 Days if not improving Activity Restrictions/Additional Instructions: If continued symptoms or localizing or changing symptoms in the next 24 hours please return to the emergency department. Disposition Disposition: Home, Self Care
[2021-04-22] MEDS: Ketorolac 30 MG/ML Syringe IV (19:34)
[2021-04-22] MEDS: Ondansetron 4 MG/2 ML Vial IV (19:34)
[2021-04-22 19:35] LABS: Bacteria 0 SEEN /hpf (None Seen); Mucous, Urine 0 SEEN /hpf (<or=2+); Red Blood Cells-Urine 0 SEEN /hpf (0-5); Squamous Epithelial Cells - UA 0 SEEN /hpf (5-10); White Blood Cells 0 SEEN /hpf (0-5)
[2021-04-22 19:44] LABS: Absolute Lymphocyte Count 3.44 X10^3/uL (0.83-4.51); Absolute Neutrophil Count 3.4 X10^3/uL (2.0-7.7); Basophil# 0.03 X10^3/uL; Basophil% 0.4 % (0-1); Eosinophil# 0.24 X10^3/uL; Hematocrit 38.8 % (37-47); Hemoglobin 13.1 g/dL (12.0-15.0); Lymphocyte # 3.44 X10^3/ul (0.83-4.51); Lymphocyte % 43.3 % (19-41); Mean Corp Hgb Conc 33.8 g/dL (32-36); Mean Corpuscular Hgb 28.9 pg (27.0-32.0); Mean Corpuscular Volume 85.7 fL (81-99); Mean Platelet Vol. 10.3 fl (6.2-12.0); Monocyte# 0.76 X10^3/uL; Monocyte% 9.6 % (0-10); NRBC Flagged by Analyzer 0 % (0-5); Neutrophil # 3.44 X10^3/uL (2.7-7.7); Neutrophil % 43.3 % (47-70); Platelet Count 190 K/mm3 (150-450); RBC Distribution Width CV 12.6 % (11.6-14.6); RBC Distribution Width SD 39.2 fl (35.1-43.9); Red Blood Count 4.53 M/mm3 (4.2-5.4); White Blood Count 7.9 K/mm3 (4.4-11.0)
[2021-04-22 19:45] LABS: Color, Urine Straw (Yellow); Glucose, Dipstick Normal (Normal); Ketone-Dipstick Negative (Negative); Leukocyte Esterase-Dipstick Negative /ul (Negative); Nitrite-Dipstick Negative (Negative); Occult Blood-Urine Negative /ul (Negative); Protein-Dipstick Negative (Negative); Urine Bilirubin Dipstick Negative (Negative); Urine Clarity Clear (Clear); Urine Urobilinogen Normal (Normal); Urine pH 6.5 (5.0 - 8.0)
[2021-04-22 19:56] LABS: Internal QC Validated? YES +Cl - CLEAR BKGD; Pregnancy, Serum, hCG Quali. NEGATIVE Negative
[2021-04-22 19:59] LABS: Anion Gap 3 (5-15); BUN 10 mg/dL (7-18); BUN/Creat Ratio 12.1 RATIO (10-20); Calcium,Total 8.8 mg/dL (8.5-10.1); Chloride 106 mmol/L (98-107); Creatinine, Serum 0.83 mg/dL (0.55-1.02); EST Glomerular Filtration Rate 87 mL/min (>60); Est Glom Filt Rate - Afr Amer 106 mL/min (>60); Estimated Creatinine Clearance 87.14 ml/min; Glucose 86 mg/dL (74-106); Potassium 3.9 mmol/L (3.5-5.1); Sodium Level 137 mmol/L (136-145)
--- NOTE | 2021-04-22 20:15 | CT_ITS ---
STUDY: CT Abdomen And Pelvis W/O Contrast Injection 04/22/2021 8:31 PM REASON FOR EXAM: Female, 26 years old. ABDOMINAL PAIN Kidney Stone TECHNIQUE: Transaxial images were obtained without oral contrast, and without intravenous contrast. Individualized dose optimization techniques were used for this CT. COMPARISON: 02.06.19 FINDINGS: The visualized lung bases are unremarkable. The visualized portions of the heart are within normal limits. Normal liver. Normal gallbladder and extrahepatic biliary system. Normal spleen. Normal pancreas. Normal bilateral adrenal glands. No acute findings of the right kidney. No acute findings of the left kidney. Normal visualized stomach. Normal small intestine. Stool throughout the colon. The appendix is visualized and appears normal. There are no acute findings of the abdominal aorta. Normal inferior vena cava. Subcentimeter mesenteric lymph nodes. Normal urinary bladder. Normal visualized uterus. There are calcified phleboliths in the pelvis. This makes differentiation with distal ureteral stones difficult. Normal abdominal wall. Normal osseous structures. IMPRESSION: (NOT LISTED IN ORDER OF SIGNIFICANCE) There are no acute findings. There are no renal stones. There is no hydronephrosis. Other findings as above. Electronically Signed: Oscar Miranda MD at 20:34 EST , Service support , CT/Abdomen/Pelvis without Cont
[2021-04-22 21:20] VITALS: BP 138/77; PULSE 62; RESP 15; O2SAT 99
== END 2021-04-22 21:33 | disposition home or self-care (01) ==
PROVIDERS: Emergency Provider Emergency Medicine; PCP Internal Medicine
DX: R10.31 Right lower quadrant pain (principal); E66.9 Obesity, unspecified; E28.2 Polycystic ovarian syndrome; G40.909 Epilepsy, unspecified, not intractable, without status epilepticus; Z87.891 Personal history of nicotine dependence; Z79.899 Other long term (current) drug therapy
CPT/HCPCS: 74176; 80048; 81001; 84703; 85025; 96374; 96375; 99284; A4216; J2405

== ENCOUNTER 2021-08-25 15:30 | Emergency (ER) | payer MEDICAID, SELFPAY ==
[2021-08-25 15:31] VITALS: BP 109/62; PULSE 86; RESP 16; TEMP 36.1; O2SAT 99; BMI 42.1
[2021-08-25 15:40] VITALS: PULSE 72; RESP 15; O2SAT 98
--- NOTE | 2021-08-25 15:55 | CT_ITS ---
STUDY: CT ABDOMEN AND PELVIS WITH CONTRAST REASON FOR EXAM: Female, 26 years old. abd pain RADIATION DOSAGE (If Supplied By Facility): CTDIvol = ( 16.04 ) mGy, DLP = ( 1120.83 ) mGycm TECHNIQUE: Transaxial images were obtained from the dome of the diaphragm to the symphysis pubis without oral contrast. IV 100mL Isovue-300 was administered. Sagittal and coronal images were reconstructed. Individualized dose optimization techniques were used for this CT. COMPARISON: 04/22/2021 FINDINGS: Lung bases clear. Unremarkable liver, spleen, pancreas, adrenals, and bilateral kidneys. No definite cholelithiasis. Normal appendix. Bowel loops nonobstructed. No free air or free fluid. No adenopathy. An ovoid area of fat stranding in the left lateral abdomen anterior to the distal descending colon, compatible with epiploic appendagitis. Intact abdominal aorta is major branches. Sections through the pelvis demonstrate an approximately 3.0 cm cystic area in the right adnexa. The uterine cavity is fluid-filled. A small nabothian cysts are seen in the cervix. The urinary bladder is incompletely distended. No acute osseous abnormality. CT/Abdomen/Pelvis W IV Cont ONLY IMPRESSION: Acute epiploic appendagitis anterior to the distal sigmoid colon. Electronically Signed: Sumit Martin MD at 17:05 EDT ,
--- NOTE | 2021-08-25 16:03 | EDS_ITS ---
HPI History of Present Illness Chief Complaint: Abd Pain Informant: patient Narrative Narrative: Patient complains of lower abdominal pain. Patient states she woke up Thursday morning. And was urinating on herself. She did not feel that she had to go to the bathroom but she was sleeping at the time. This has not recurred. She now has full continence over her urine. However, she has been getting more suprapubic and lower abdominal pain. She did see physician that day. She states some urine and blood work were done that were normal. She has an appointment with her OB physician on Thursday. She has had prior 2 C-sections and has polycystic ovarian syndrome. Nothing is really making her discomfort better or worse. She states she also feels constipated. This has happened before. But she is eating drinking normally. No fevers or chills. She is not having back pain numbness tingling or weakness. No acute trauma recently. She has no neurologic symptoms at this time. She also states sometimes the upper part of her abdomen hurts. She has had problems with abdominal pain before but no firm diagnosis as to why. [facility] Medical History Cavernous hemangioma of brain Epilepsy HSV (herpes simplex virus) infection Post depression Home Medications valacyclovir 500 mg PO DAILY 02/02/19 [History Last Taken Unknown] clobazam 20 mg PO DAILY 11/10/20 [History Last Taken Unknown] azithromycin 250 mg PO DAILY 08/25/21 [History Last Taken Unknown] fluticasone propionate 2 spray INTRANASAL DAILY 08/25/21 [History Last Taken Unknown] lacosamide [Vimpat] 200 mg PO DAILY 08/25/21 [History Last Taken Unknown] lacosamide [Vimpat] 250 mg PO QHS 08/25/21 [History Last Taken Unknown] ondansetron 4 mg PO Q8H PRN #10 tab 08/25/21 [Rx Last Taken Unknown] Allergy/AdvReac Type Severity Reaction Status Date / Time amoxicillin [Amoxicillin] Allergy Rash Verified 08/25/21 15:31 clarithromycin [From Biaxin] Allergy Rash Verified 08/25/21 15:31 soy Allergy Anaphylaxis Verified 08/25/21 15:31 lactose AdvReac Upset Verified 03/20/22 15:31 Stomach latex AdvReac Rash Verified 08/25/21 15:31 Surgical History delivery delivered History of brain surgery Social History Smoking Status: Former smoker alcohol intake: never caffeine: Yes what type of physical activity do you participate in: none seatbelt use: always do you feel safe at home: Yes additional social history: single ROS ROS ED Constitutional Constitutional ED: Denies chills or fever(s) Eyes Eyes: Denies diplopia ENT ENT ED: Denies rhinorrhea Cardiovascular Cardiovascular: Denies chest pain or palpitations Respiratory/Chest Respiratory/Chest: Denies cough or dyspnea Gastrointestinal Gastrointestinal: Reports abdominal pain and constipation; Denies diarrhea, melena, nausea or vomiting Genitourinary Genitourinary ED: Reports other Details: See history of present Musculoskeletal Musculoskeletal: Denies back pain or neck pain Integumentary Denies rash Neurologic Neurologic: Denies headache(s), paresthesias or weakness Psychiatric Psychiatric: Denies depression Endocrine Endocrinology: Denies polydipsia or polyuria Allergic/Immunologic Allergic/Immunologic ED: Denies urticaria EXAM Physical Exam Const Vital Signs: 08/25/21 15:31 08/25/21 15:40 Temperature 97.0 F L Temperature Source Temporal Pulse Rate 86 72 Respiratory Rate 16 15 Blood Pressure 109/62 Blood Pressure Mean 77 Pulse Ox 99 98 Oxygen Delivery Method Room Air Room Air Positive well nourished General Appearance ED: NAD; Negative for cyanotic or diaphoretic HEENT Reports moist mucous membranes; Denies dry mucous membranes Mouth ED: No dry mucous membranes Mouth: No dry mucous membranes Eyes General Eye ED: Negative for pale conjunctiva or scleral icterus Neck no JVD Chest Wall inspection of chest normal Resp normal respiratory effort and clear to auscultation bilaterally Cardio regular rate and regular rhythm GI normal to inspection, nondistended, normoactive bowel sounds GI Narrative: Abdomen is soft nondistended. She has variable tenderness during exam. Sometimes it is a little bit suprapubic and sometimes she has some mild discomfort right upper quadrant. But no rebound or guarding. Palpation: soft Back/Spine no CVA tenderness Extremity normal to inspection General Extremety ED: Negative for edema or tenderness General Extremity: Negative for edema Neuro oriented x3 and no sensory deficits noted Sensorium / Orientation: alert; Negative for lethargic or stuporous Motor Exam: strength 5/5 throughout; Negative for general weakness Psych mental status grossly normal Skin no rashes or lesions noted MDM MDM MDM Narrative Medical decision making narrative: CBC shows no marked abnormalities. Electrolytes liver function test are normal. is negative. Urinalysis shows no sign of infection but is not a clean-catch. Patient CT does show epiploic appendagitis. I discussed this with the patient. This is usually self-limited illness. We talked about pain meds and something for nausea if needed. She is not nauseated now but I will write it in case. She states she is only allowed to take Tylenol because of her prior head surgery and seizures. Lab Data Attestation: I reviewed the patient's lab results. Labs: Laboratory Results - last 24 hr 08/25/21 08/25/21 08/25/21 16:05 16:05 16:05 WBC 7.5 RBC 4.31 Hgb 12.8 Hct 37.2 MCV 86.3 MCH 29.7 MCHC 34.4 RDW Std Deviation 40.0 RDW Coeff of Robbi 12.7 Plt Count 192 MPV 9.9 Immature Gran % (Auto) 0.400 Neut % (Auto) 59.2 Lymph % (Auto) 31.1 [place] % (Auto) 7.0 Eos % (Auto) 2.0 Baso % (Auto) 0.3 Absolute Neuts (auto) 4.5 Absolute Lymphs (auto) 2.34 Nucleated RBC % 0 Sodium 139 Potassium 4.0 Chloride 108 H Carbon Dioxide 27.0 Anion Gap 4 L BUN 8 Creatinine 0.92 Estim Creat Clear Calc 68.70 Est GFR (MDRD) Af Amer 93 Est GFR (MDRD) Non-Af 77 BUN/Creatinine Ratio 8.7 L Glucose 100 Calcium 8.8 Total Bilirubin 0.30 AST 11 L ALT 26 Alkaline Phosphatase 64 Total Protein 7.3 Albumin 3.3 Globulin 4.0 Albumin/Globulin Ratio 0.8 L Serum , Qual NEGATIVE Urine Color Urine Clarity Urine pH Ur Specific [place] Urine Protein Urine Glucose (UA) Urine Ketones Urine Occult Blood Urine Nitrite Urine Bilirubin Urine Urobilinogen Ur Leukocyte Esterase Urine RBC Urine WBC Ur Squamous Epith Cells Urine Bacteria Urine Mucus 08/25/21 16:11 WBC RBC Hgb Hct MCV MCH MCHC RDW Std Deviation RDW Coeff of Robbi Plt Count MPV Immature Gran % (Auto) Neut % (Auto) Lymph % (Auto) [place] % (Auto) Eos % (Auto) Baso % (Auto) Absolute Neuts (auto) Absolute Lymphs (auto) Nucleated RBC % Sodium Potassium Chloride Carbon Dioxide Anion Gap BUN Creatinine Estim Creat Clear Calc Est GFR (MDRD) Af Amer Est GFR (MDRD) Non-Af BUN/Creatinine Ratio Glucose Calcium Total Bilirubin AST ALT Alkaline Phosphatase Total Protein Albumin Globulin Albumin/Globulin Ratio Serum , Qual Urine Color Yellow Urine Clarity Clear Urine pH 6.0 Ur Specific [place] 1.020 Urine Protein Negative Urine Glucose (UA) Normal Urine Ketones Negative Urine Occult Blood Negative Urine Nitrite Negative Urine Bilirubin Negative Urine Urobilinogen Normal Ur Leukocyte Esterase Negative Urine RBC 0 SEEN Urine WBC 0-5 SEEN Ur Squamous Epith Cells 5-10 SEEN Urine Bacteria 0 SEEN Urine Mucus 0 SEEN Radiography Diagnostic Testing: Clinical Impression(s) from Imaging Studies Abdomen/Pelvis CT 08/25/21 15:55 IMPRESSION: Acute epiploic appendagitis anterior to the distal sigmoid colon. Electronically Signed: Sumit Martin MD at 17:05 EDT Reading Location ID and State: [facility] / [place] Tel , Service support , Discharge Plan Triage Chief Complaint: Abd Pain ED Provider: Júnior Coles Dx/Rx/DC Orders Clinical Impression: Epiploic appendagitis Instructions: Abdominal Pain Prescriptions: New ondansetron 4 mg tablet,disintegrating 4 mg PO Q8H PRN (Reason: nausea and vomiting) Qty: 10 RF: 0 No Action valacyclovir 500 tablet 500 mg PO DAILY RF: 0 clobazam 20 mg tablet 20 mg PO DAILY RF: 0 Vimpat 50 mg tablet 250 mg PO QHS RF: 0 Vimpat 200 mg tablet 200 mg PO DAILY RF: 0 azithromycin 250 mg tablet 250 mg PO DAILY RF: 0 fluticasone propionate 50 mcg/actuation spray,suspension 2 spray INTRANASAL DAILY RF: 0 Primary Care Provider: Sherri Brown Referrals: Sherri Brown MD [Primary Care Provider] - 3-5 Days if not improving Activity Restrictions/Additional Instructions: 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 Disposition Disposition: Home, Self Care
[2021-08-25 16:11] LABS: Absolute Lymphocyte Count 2.34 X10^3/uL (0.83-4.51); Absolute Neutrophil Count 4.5 X10^3/uL (2.0-7.7); Basophil# 0.02 X10^3/uL; Basophil% 0.3 % (0-1); Eosinophil# 0.15 X10^3/uL; Hematocrit 37.2 % (37-47); Hemoglobin 12.8 g/dL (12.0-15.0); Lymphocyte # 2.34 X10^3/ul (0.83-4.51); Lymphocyte % 31.1 % (19-41); Mean Corp Hgb Conc 34.4 g/dL (32-36); Mean Corpuscular Hgb 29.7 pg (27.0-32.0); Mean Corpuscular Volume 86.3 fL (81-99); Mean Platelet Vol. 9.9 fl (6.2-12.0); Monocyte# 0.53 X10^3/uL; NRBC Flagged by Analyzer 0 % (0-5); Neutrophil # 4.45 X10^3/uL (2.7-7.7); Neutrophil % 59.2 % (47-70); Platelet Count 192 K/mm3 (150-450); RBC Distribution Width CV 12.7 % (11.6-14.6); Red Blood Count 4.31 M/mm3 (4.2-5.4); White Blood Count 7.5 K/mm3 (4.4-11.0)
[2021-08-25 16:21] LABS: Bacteria 0 SEEN /hpf (None Seen); Mucous, Urine 0 SEEN /hpf (<or=2+)
[2021-08-25 16:23] LABS: Glucose, Dipstick Normal (Normal); Ketone-Dipstick Negative (Negative); Leukocyte Esterase-Dipstick Negative /ul (Negative); Nitrite-Dipstick Negative (Negative); Occult Blood-Urine Negative /ul (Negative); Protein-Dipstick Negative (Negative); Urine Bilirubin Dipstick Negative (Negative); Urine Urobilinogen Normal (Normal)
[2021-08-25 16:24] LABS: Internal QC Validated? YES +Cl - CLEAR BKGD; Pregnancy, Serum, hCG Quali. NEGATIVE Negative
[2021-08-25 16:26] LABS: Color, Urine Yellow (Yellow); Urine Clarity Clear (Clear)
[2021-08-25 16:29] LABS: ALB/GLOB Ratio 0.8 RATIO (0.9-2.4); AST(SGOT) 11 U/L (15-37); Alanine Aminotransfer ALT/SGPT 26 U/L (13-56); Albumin, Serum 3.3 g/dL (3.2-5.0); Alkaline Phosphatase 64 U/L (45-117); Anion Gap 4 (5-15); BUN 8 mg/dL (7-18); BUN/Creat Ratio 8.7 RATIO (10-20); Calcium,Total 8.8 mg/dL (8.5-10.1); Chloride 108 mmol/L (98-107); Creatinine, Serum 0.92 mg/dL (0.55-1.02); EST Glomerular Filtration Rate 77 mL/min (>60); Est Glom Filt Rate - Afr Amer 93 mL/min (>60); Glucose 100 mg/dL (74-106); Protein, Total 7.3 g/dL (6.4-8.2); Sodium Level 139 mmol/L (136-145)
[2021-08-25 16:32] LABS: Red Blood Cells-Urine 0 SEEN /hpf (0-5)
[2021-08-25 16:33] LABS: Squamous Epithelial Cells - UA 5-10 SEEN /hpf (5-10); White Blood Cells 0-5 SEEN /hpf (0-5)
[2021-08-25 18:33] VITALS: BP 94/66; PULSE 85; RESP 15; O2SAT 96
== END 2021-08-25 18:34 | disposition home or self-care (01) ==
PROVIDERS: Emergency Provider Emergency Medicine; PCP Internal Medicine; Visit Provider Emergency Medicine
DX: Q43.8 Other specified congenital malformations of intestine (principal); Z87.891 Personal history of nicotine dependence; Z79.899 Other long term (current) drug therapy
CPT/HCPCS: 74177; 80053; 81001; 84703; 85025; 99283; Q9967; A4216

== ENCOUNTER 2021-08-30 14:11 | Outpatient (CLI) | payer MEDICAID, SELFPAY | END 2021-08-30 23:59 | disposition home or self-care (01) | LOC: LABSPEC 14:13 | PROVIDERS: PCP Internal Medicine; Visit Provider Obstetrics & Gynecology | DX: N39.498 Other specified urinary incontinence (principal) | CPT/HCPCS: 87077; 87086; 87088; 87186 ==

== ENCOUNTER 2021-09-20 09:19 | Outpatient (CLI) | payer MEDICAID, SELFPAY ==
--- NOTE | 2021-09-20 09:22 | US_ITS ---
STUDY: ULTRASOUND BREAST - LEFT REASON FOR EXAM: Female, 26 years old. Left breast pain. TECHNIQUE: Axial and longitudinal images of the LEFT breast were performed with a high resolution ultrasound transducer. # OF IMAGES: 27 COMPARISON: Comparison is made with prior mammogram dated 09/20/2021. FINDINGS: LEFT Breast: The inferior medial aspect of the left breast was examined by ultrasound. No sonographic abnormality is seen. US/Breast Limited Unilateral IMPRESSION: No sonographic abnormality is seen. ASSESSMENT CATEGORY: BIRADS Category 1: Negative. A letter regarding these results will be sent to the patient by the facility within 30 days. Electronically Signed: Vinay Garrett MD at 11:04 EDT ,
--- NOTE | 2021-09-20 09:22 | BI_ITS ---
MAMMOGRAPHY - BILATERAL DIAGNOSTIC REASON FOR EXAM: Female, 26 years old. 3 week history of left breast pain. PERTINENT HISTORY: Non-contributory. TECHNIQUE: Digital bilateral breast cadence (3D mammographic acquisition) in the CC and MLO projections. 2-D mediolateral oblique (MLO) and craniocaudad (CC) views of both breasts were obtained. CAD: Full Field Digital Mammography with Computer Added Detection was performed. COMPARISON: None. Baseline examination. FINDINGS: Breast Composition: The breasts are heterogeneously dense, which may obscure small masses. There are no dominant masses or suspicious calcifications. No other significant abnormalities are identified. BI/DIAG MAMM W/CAD, BILAT IMPRESSION: Negative diagnostic mammogram. With the patient''s history of left breast pain, correlation with ultrasound is recommended. ASSESSMENT CATEGORY: BIRADS Category 0: Incomplete. Need additional imaging evaluation. A letter regarding these results will be sent to the patient by the facility within 30 days. Approximately 10% of breast cancers are not detected by mammography. A normal mammogram should not delay biopsy of a clinically suspicious abnormality. Electronically Signed: Vinay Garrett MD at 10:40 EDT ,
== END 2021-09-20 23:59 | disposition home or self-care (01) ==
LOC: OPBI 09:20
PROVIDERS: PCP Internal Medicine; Referring Provider Obstetrics & Gynecology; Visit Provider Obstetrics & Gynecology
DX: N64.4 Mastodynia (principal)
CPT/HCPCS: 77062; 76642; 77066; G0279

== ENCOUNTER 2021-10-16 20:15 | Emergency (ER) | payer MEDICAID, SELFPAY ==
[2021-10-16 20:16] VITALS: BP 130/84; PULSE 99; RESP 14; TEMP 36.1; O2SAT 98; BMI 42.6
--- NOTE | 2021-10-16 20:30 | EX.ED.DYSGE1 ---
HPI History of Present Illness Chief Complaint: Bite Informant: patient Onset/Context/Timing Onset: Today Current Severity: Mild Maximum Severity: Mild Narrative Narrative: Patient presents with red lump on the back of her right axilla with some achiness in her right shoulder. Patient states she is been outside working in the yard today. When she went to take a shower tonight she noted a painful red bump on the back of her right axilla. She states her right shoulder is achy and sore. No fever or chills. She does not remember injuring herself or being bitten. [facility] Medical History Cavernous hemangioma of brain Epilepsy HSV (herpes simplex virus) infection Post depression Home Medications valacyclovir 500 mg PO DAILY 02/02/19 [History Last Taken Unknown] clobazam 20 mg PO DAILY 11/10/20 [History Last Taken Unknown] azithromycin 250 mg PO DAILY 08/25/21 [History Last Taken Unknown] fluticasone propionate 2 spray INTRANASAL DAILY 08/25/21 [History Last Taken Unknown] lacosamide [Vimpat] 200 mg PO DAILY 08/25/21 [History Last Taken Unknown] lacosamide [Vimpat] 250 mg PO QHS 08/25/21 [History Last Taken Unknown] ondansetron 4 mg PO Q8H PRN #10 tab 08/25/21 [Rx Last Taken Unknown] doxycycline monohydrate 100 mg PO BID #20 cap 10/16/21 [Rx Last Taken Unknown] Allergy/AdvReac Type Severity Reaction Status Date / Time amoxicillin [Amoxicillin] Allergy Rash Verified 10/16/21 20:16 clarithromycin [From Biaxin] Allergy Rash Verified 10/16/21 20:16 soy Allergy Anaphylaxis Verified 10/16/21 20:16 lactose AdvReac Upset Verified 10/16/21 20:16 Stomach latex AdvReac Rash Verified 10/16/21 20:16 Surgical History delivery delivered History of brain surgery Social History Smoking Status: Former smoker alcohol intake: never caffeine: Yes what type of physical activity do you participate in: none seatbelt use: always do you feel safe at home: Yes additional social history: single ROS ROS ED Constitutional Constitutional ED: Denies chills or fever(s) Eyes Eyes: Denies change in vision ENT ENT ED: Denies sore throat Cardiovascular Cardiovascular: Denies chest pain Respiratory/Chest Respiratory/Chest: Denies cough or dyspnea Gastrointestinal Gastrointestinal: Denies abdominal pain, nausea or vomiting Genitourinary Genitourinary ED: Denies dysuria Musculoskeletal Musculoskeletal: Reports myalgias; Denies back pain Integumentary Reports abscess; Denies rash Neurologic Neurologic: Denies headache(s) or weakness Allergic/Immunologic Allergic/Immunologic ED: Denies urticaria EXAM Physical Exam Const Vital Signs: 10/16/21 20:16 Temperature 96.9 F L Temperature Source Temporal Pulse Rate 99 Respiratory Rate 14 Blood Pressure 130/84 H Blood Pressure Mean 99 Pulse Ox 98 Oxygen Delivery Method Room Air Positive well nourished and well developed General Appearance ED: well developed HEENT Reports moist mucous membranes Eyes PERRL and EOMs intact bilaterally Neck supple Chest Wall inspection of chest normal and palpation of chest normal Resp normal respiratory effort and clear to auscultation bilaterally Cardio regular rate and regular rhythm GI non-tender Palpation: soft Extremity Extremity Narrative: 1 cm diameter small developing abscess to the posterior aspect of the right axilla. No surrounding cellulitis. No spontaneous drainage. No fluctuance at this time. Neuro oriented x3 Sensorium / Orientation: alert MDM MDM Treatment and Re-Evaluation Narrative: Patient encouraged to use warm compresses to the area. She will be treated with a course of doxycycline, first dose given here. She will use Tylenol to help with the aches. She was advised that if the abscess develops further she may require I&D. She voices understanding and agreement. Discharge Plan Triage Chief Complaint: Bite ED Provider: Haley Clark Dx/Rx/DC Orders Clinical Impression: Abscess Instructions: ED Abscess Antibiotic Treatment Only Prescriptions: New doxycycline monohydrate 100 MG capsule 100 mg PO BID Qty: 20 RF: 0 No Action valacyclovir 500 tablet 500 mg PO DAILY RF: 0 clobazam 20 mg tablet 20 mg PO DAILY RF: 0 Vimpat 50 mg tablet 250 mg PO QHS RF: 0 Vimpat 200 mg tablet 200 mg PO DAILY RF: 0 azithromycin 250 mg tablet 250 mg PO DAILY RF: 0 fluticasone propionate 50 mcg/actuation spray,suspension 2 spray INTRANASAL DAILY RF: 0 ondansetron 4 mg tablet,disintegrating 4 mg PO Q8H PRN (Reason: nausea and vomiting) Qty: 10 RF: 0 Primary Care Provider: Sherri Brown Referrals: Sherri Brown MD [Primary Care Provider] - 1 Week if not improving Disposition Disposition: Home, Self Care
[2021-10-16] MEDS: Doxycycline 100 MG CAPSULE PO (20:32)
== END 2021-10-16 20:39 | disposition home or self-care (01) ==
PROVIDERS: Emergency Provider Emergency Medicine; PCP Internal Medicine; Visit Provider Emergency Medicine
DX: L02.411 Cutaneous abscess of right axilla (principal); Z87.891 Personal history of nicotine dependence
CPT/HCPCS: 99283

== ENCOUNTER 2022-12-22 20:44 | Emergency (ER) | payer MEDICAID, MEDICARE, SELFPAY ==
[2022-12-22 20:45] VITALS: BP 127/66; PULSE 83; RESP 16; TEMP 36.9; O2SAT 98; BMI 39.6
[2022-12-22 23:13] VITALS: RESP 16
[2022-12-22 23:13] LABS: Bacteria 0 SEEN /hpf (None Seen); Mucous, Urine 0 SEEN /hpf (<or=2+); Red Blood Cells-Urine 0 SEEN /hpf (0-5); Squamous Epithelial Cells - UA 0 SEEN /hpf (5-10); White Blood Cells 0 SEEN /hpf (0-5)
[2022-12-22 23:15] LABS: Color, Urine Yellow (Yellow); Glucose, Dipstick Normal (Normal); Ketone-Dipstick Negative (Negative); Leukocyte Esterase-Dipstick Negative /ul (Negative); Nitrite-Dipstick Negative (Negative); Occult Blood-Urine 25 /ul (Negative); Protein-Dipstick Negative (Negative); Specific Gravity, Urine 1.005 (1.002-1.030); Urine Bilirubin Dipstick Negative (Negative); Urine Clarity Clear (Clear); Urine Urobilinogen Normal (Normal)
[2022-12-22 23:28] LABS: Absolute Lymphocyte Count 3.57 X10^3/uL (0.83-4.51); Absolute Neutrophil Count 1.7 X10^3/uL (2.0-7.7); Basophil# 0.03 X10^3/uL; Basophil% 0.5 % (0-1); Eosinophil# 0.06 X10^3/uL; Hematocrit 35.3 % (37-47); Hemoglobin 11.8 g/dL (12.0-15.0); Lymphocyte # 3.57 X10^3/ul (0.83-4.51); Lymphocyte % 61.3 % (19-41); Mean Corp Hgb Conc 33.4 g/dL (32-36); Mean Corpuscular Hgb 28.6 pg (27.0-32.0); Mean Corpuscular Volume 85.7 fL (81-99); Mean Platelet Vol. 10.6 fl (6.2-12.0); Monocyte# 0.47 X10^3/uL; Monocyte% 8.1 % (0-10); NRBC Flagged by Analyzer 0 % (0-5); Neutrophil # 1.66 X10^3/uL (2.7-7.7); Neutrophil % 28.6 % (47-70); Platelet Count 197 K/mm3 (150-450); RBC Distribution Width CV 13.3 % (11.6-14.6); RBC Distribution Width SD 40.7 fl (35.1-43.9); Red Blood Count 4.12 M/mm3 (4.2-5.4); White Blood Count 5.8 K/mm3 (4.4-11.0)
[2022-12-22 23:38] LABS: Anion Gap 4 (5-15); BUN 14 mg/dL (7-18); BUN/Creat Ratio 14.8 RATIO (10-20); Calcium,Total 8.7 mg/dL (8.5-10.1); Chloride 109 mmol/L (98-107); Creatinine, Serum 0.95 mg/dL (0.55-1.02); EST Glomerular Filtration Rate 74 mL/min (>60); Est Glom Filt Rate - Afr Amer 90 mL/min (>60); Estimated Creatinine Clearance 65.93 ml/min; Glucose 98 mg/dL (74-106); Potassium 4.8 mmol/L (3.5-5.1); Sodium Level 139 mmol/L (136-145)
--- NOTE | 2022-12-22 23:48 | ED.VIS.GI ---
HPI HPI - GI History of Present Illness Chief Complaint: Abd Pain Detail of Chief Complaint: Abdominal pain the patient localizes to the suprapubic region Informant: patient Abdominal Pain/Flank Pain Onset: Today Context: Sudden Onset Timing: Continuous Quality: Dull Location: - (Suprapubic) Current Severity: Mild Maximum Severity: Moderate Worsened by: - (Increased pain with palpation during examination); Not Worsened By Food, Movement or Nothing Relieved by: Nothing Nausea/Vomiting/Emesis GI Symptom: Positive for Nausea; Negative for Vomiting Diarrhea/Melena/Hematochezia GI Symptom: Negative for Diarrhea, Melena or Hematochezia Associated Symptoms Associated Symptoms: Negative for Dysuria, Frequency, Hematuria or Urgency LMP: Presently Narrative Narrative: Patient is a 27-year-old female with 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 She states the AVM has been fixed. She presents because of pain that she localized to the suprapubic region. She denies dysuria, frequency or urgency. She is presently menstruating. She does not believe she has blood in her urine. She has no history of renal ureterolithiasis. She is sexually active. She is status post bilateral tubal ligation and is on control pills. She does endorse dyspareunia. She states she has had dyspareunia for months. She denies vaginal discharge. She denies back or flank pain. She does have history of polycystic ovarian disease. This is not the location she normally has pain with associated with polycystic ovarian syndrome. Prior similar symptoms: No Recent Illness/Hospitalization: No PFSH PFSH Medical History Cavernous hemangioma of brain Epilepsy HSV (herpes simplex virus) infection Post depression Home Medications valacyclovir 500 mg tablet 500 mg PO DAILY 02/02/19 [History Last Taken Unknown] clobazam 20 mg tablet 20 mg PO DAILY 11/10/20 [History Last Taken Unknown] azithromycin 250 mg tablet 250 mg PO DAILY 08/25/21 [History Last Taken Unknown] fluticasone propionate 50 mcg/actuation nasal spray,suspension 2 spray intranasal DAILY 08/25/21 [History Last Taken Unknown] lacosamide 200 mg tablet (Vimpat) 200 mg PO DAILY 08/25/21 [History Last Taken Unknown] lacosamide 50 mg tablet (Vimpat) 250 mg PO QHS 08/25/21 [History Last Taken Unknown] ondansetron 4 mg disintegrating tablet 4 mg PO Q8H PRN nausea and vomiting #10 tabs 08/25/21 [Rx Last Taken Unknown] doxycycline monohydrate 100 mg capsule 100 mg PO BID #20 caps 10/16/21 [Rx Last Taken Unknown] Allergy/AdvReac Type Severity Reaction Status Date / Time amoxicillin [Amoxicillin] Allergy Rash Verified 10/16/21 20:16 clarithromycin [From Biaxin] Allergy Rash Verified 10/16/21 20:16 soy Allergy Anaphylaxis Verified 10/16/21 20:16 lactose AdvReac Upset Verified 10/16/21 20:16 Stomach latex AdvReac Rash Verified 10/16/21 20:16 Surgical History delivery delivered History of brain surgery Social History Smoking Status: Former smoker alcohol intake: never caffeine: Yes what type of physical activity do you participate in: none seatbelt use: always do you feel safe at home: Yes additional social history: single ROS ROS ED Constitutional Constitutional ED: Denies chills, fever(s), subjective, sweats or weight loss ENT ENT ED: Denies ear pain or rhinorrhea Cardiovascular Cardiovascular: Denies chest pain or palpitations Respiratory/Chest Respiratory/Chest: Denies cough or dyspnea Gastrointestinal Gastrointestinal: Reports abdominal pain; Denies constipation, diarrhea, melena, nausea or vomiting Genitourinary Genitourinary ED: Denies dysuria, hematuria or urinary frequency Musculoskeletal Musculoskeletal: Denies arthralgias, back pain, myalgias or neck pain Integumentary Denies abscess or Abrasions Neurologic Neurologic: Denies headache(s), paresthesias or weakness Psychiatric Psychiatric: Denies anxiety, depression or suicidal thoughts Endocrine Endocrinology: Denies polydipsia, polyphagia or polyuria Hematologic/Lymphatic Hematologic/Lymphatic: Denies easy bleeding or easy bruising EXAM Physical Exam Const Vital Signs: 12/22/22 20:45 12/22/22 23:13 Temperature 98.4 F Temperature Source Temporal Pulse Rate 83 Respiratory Rate 16 16 Blood Pressure 127/66 H Blood Pressure Mean 86 Pulse Ox 98 Oxygen Delivery Method Room Air Positive well nourished, well developed and obese General Appearance ED: well developed and NAD; Negative for pallor Nutritional Appearance: obese HEENT Reports TM's clear and moist mucous membranes normocephalic and atraumatic Tympanic Membrane ED: Yes TM's clear Eyes PERRL and EOMs intact bilaterally General Eye ED: Negative for pale conjunctiva or scleral icterus Resp normal respiratory effort and clear to auscultation bilaterally Cardio regular rate, regular rhythm, S1 normal heart sound, S2 normal heart sound and no murmurs GI non-distended and no masses; Negative for non-tender Auscultation: hypoactive bowel sounds Palpation: soft and tender suprapubic; Negative for guarding, rigid, hepatomegaly, splenomegaly, hernia, mass, pulsatile mass or rebound tenderness present Back/Spine no CVA tenderness Extremity full ROM General Extremety ED: Negative for edema or tenderness General Extremity: Negative for edema Neuro CN's II-XII intact bilaterally, moves all extremities and no sensory deficits noted Sensorium / Orientation: alert Psych mental status grossly normal and thought process normal Skin no wounds General Skin Exam: Negative for jaundice or pallor Lesions: no lesions Rashes: no rashes MDM MDM MDM Narrative Medical decision making narrative: Patient has suprapubic discomfort. Will obtain UA to assess for urinary tract infection. Since she is status post tubal ligation and on control pills and has no symptoms of and present her menses a test was not obtained. CBC was obtained assess white count and differential. Patient was informed there was a delay because her chart was misplaced. She understood. History & Record Review Additional record(s) reviewed:: Prior inpatient record, Prior ED visit and Prior labs Lab Data Attestation: I reviewed the patient's lab results. Lab results narrative: CBC C reveals a lymphocytosis and mild anemia. Electrolyte panel is normal. You is negative. Labs: Laboratory Results - last 24 hr 12/22/22 12/22/22 22:40 23:05 WBC 5.8 RBC 4.12 L Hgb 11.8 L Hct 35.3 L MCV 85.7 MCH 28.6 MCHC 33.4 RDW Std Deviation 40.7 RDW Coeff of Robbi 13.3 Plt Count 197 MPV 10.6 Immature Gran % (Auto) 0.500 Neut % (Auto) 28.6 L Lymph % (Auto) 61.3 H Whitman % (Auto) 8.1 Eos % (Auto) 1.0 Baso % (Auto) 0.5 Absolute Neuts (auto) 1.7 L Absolute Lymphs (auto) 3.57 Nucleated RBC % 0 Sodium 139 Potassium 4.8 Chloride 109 H Carbon Dioxide 26.0 Anion Gap 4 L BUN 14 Creatinine 0.95 Estim Creat Clear Calc 65.93 Est GFR (MDRD) Af Amer 90 Est GFR (MDRD) Non-Af 74 BUN/Creatinine Ratio 14.8 Glucose 98 Calcium 8.7 Urine Color Yellow Urine Clarity Clear Urine pH 7.0 Ur Specific [place] 1.005 Urine Protein Negative Urine Glucose (UA) Normal Urine Ketones Negative Urine Occult Blood 25 H Urine Nitrite Negative Urine Bilirubin Negative Urine Urobilinogen Normal Ur Leukocyte Esterase Negative Urine RBC 0 SEEN Urine WBC 0 SEEN Ur Squamous Epith Cells 0 SEEN Urine Bacteria 0 SEEN Urine Mucus 0 SEEN Treatment and Re-Evaluation :: Patient was informed the cause of her pain is unknown. This possibly could be related to her polycystic ovarian disease. Since she is reluctant to take NSAIDs and drove herself she was instructed to take Tylenol for her pain. If she develops a fever, vomiting, loss of appetite or the pain intensifies significantly she has been instructed to return to the emergency department. Discharge Plan Triage Chief Complaint: Abd Pain ED Provider: Hermelindo Cedillo Dx/Rx/DC Orders Clinical Impression: Suprapubic pain, acute, History of polycystic ovarian syndrome Instructions: ED Abdominal Pain Unkn Cause Fem Prescriptions: No Action valacyclovir 500 tablet 500 mg PO DAILY clobazam 20 mg tablet 20 mg PO DAILY Patient Comments: TAKE 1 TABLET BY MOUTH DAILY AT BEDTIME FOR 180 DAYS. Vimpat 50 mg tablet 250 mg PO QHS Vimpat 200 mg tablet 200 mg PO DAILY azithromycin 250 mg tablet 250 mg PO DAILY fluticasone propionate 50 mcg/actuation spray,suspension 2 spray INTRANASAL DAILY Patient Comments: USE 2 SPRAYS IN EACH NOSTRIL ONCE DAILY. RINSE MOUTH AFTER USE. ondansetron 4 mg tablet,disintegrating 4 mg PO Q8H PRN (Reason: nausea and vomiting) Qty: 10 0RF doxycycline monohydrate 100 MG capsule 100 mg PO BID Qty: 20 0RF Primary Care Provider: Care Physician,No Primary Referrals: Care Physician,No Primary [Primary Care Provider] - Activity Restrictions/Additional Instructions: Recommend follow-up with your doctor. The name of your doctor/provider is listed on your insurance card issued to you by [facility]. Recommend taking Tylenol for your pain since you are not reluctant to take ibuprofen. Disposition Disposition: Home, Self Care
== END 2022-12-23 00:09 | disposition home or self-care (01) ==
PROVIDERS: Emergency Provider Emergency Medicine; Visit Provider Emergency Medicine
DX: R10.2 Pelvic and perineal pain (principal); Z87.891 Personal history of nicotine dependence
CPT/HCPCS: 80048; 81001; 85025; 99282

== ENCOUNTER 2023-03-08 09:56 | Emergency (ER) | payer MEDICAID, MEDICARE, SELFPAY ==
[2023-03-08 09:57] VITALS: BP 132/78; PULSE 64; RESP 14; TEMP 36.4; O2SAT 98; BMI 37.6
--- NOTE | 2023-03-08 11:00 | RAD_ITS ---
STUDY: X-RAY - RIGHT FOOT CLINICAL: Female, 27 years old. Trauma TECHNIQUE: 3 view(s) of the foot. COMPARISON: None. FINDINGS: Normal talus. There is plantar spur of the calcaneus. Normal visualized subtalar, talonavicular, calcaneocuboid, tarsal and tarsometatarsal articulations. Normal metatarsi. Normal metatarsophalangeal joint of the great toe. Normal tibial and fibular sesamoid bones. Normal interphalangeal joint of the great toe. Normal phalanges of the great toe. Normal second through fifth metatarsophalangeal joints. Normal interphalangeal joints and phalanges of the lesser toes. The soft tissue structures are unremarkable. There is no demonstrated fracture. RAD/Foot min 3 Views IMPRESSION: No fracture. Small heel spur. Electronically Signed: Urbano Laurent MD at 11:46 EDT ,
--- NOTE | 2023-03-08 11:05 | ED.VIS.LOWEX ---
HPI History of Present Illness Chief Complaint: Lower Extremity Injury Informant: patient Narrative Narrative: Patient complains of right foot pain. Patient states about 2 weeks ago she dropped something heavy on her foot and then dropped something the next day also. Its been a little bit sore but she has been doing well. Yesterday she did a lot of walking. She notices that she has a lot of soreness now at mostly the great toe/first MTP. She notices a little bit of bruising. No fevers or chills. No history of gout. Its not swollen. No other areas of pain. She is just concerned if she may have broke it 2 weeks ago and it just aggravated it with walking. No history of DVT. [facility] Medical History Cavernous hemangioma of brain Epilepsy HSV (herpes simplex virus) infection Post depression Home Medications valacyclovir 500 mg tablet 500 mg PO DAILY 02/02/19 [History Last Taken Unknown] clobazam 20 mg tablet 20 mg PO DAILY 11/10/20 [History Last Taken Unknown] azithromycin 250 mg tablet 250 mg PO DAILY 08/25/21 [History Last Taken Unknown] fluticasone propionate 50 mcg/actuation nasal spray,suspension 2 spray intranasal DAILY 08/25/21 [History Last Taken Unknown] lacosamide 200 mg tablet (Vimpat) 200 mg PO DAILY 08/25/21 [History Last Taken Unknown] lacosamide 50 mg tablet (Vimpat) 250 mg PO QHS 08/25/21 [History Last Taken Unknown] ondansetron 4 mg disintegrating tablet 4 mg PO Q8H PRN nausea and vomiting #10 tabs 08/25/21 [Rx Last Taken Unknown] doxycycline monohydrate 100 mg capsule 100 mg PO BID #20 caps 10/16/21 [Rx Last Taken Unknown] Allergy/AdvReac Type Severity Reaction Status Date / Time amoxicillin [Amoxicillin] Allergy Rash Verified 03/08/23 09:57 clarithromycin [From Biaxin] Allergy Rash Verified 03/08/23 09:57 soy Allergy Anaphylaxis Verified 03/08/23 09:57 lactose AdvReac Upset Verified 03/08/23 09:57 Stomach latex AdvReac Rash Verified 03/08/23 09:57 Surgical History delivery delivered History of brain surgery Social History Smoking Status: Former smoker alcohol intake: never caffeine: Yes what type of physical activity do you participate in: none seatbelt use: always do you feel safe at home: Yes additional social history: single ROS ROS ED Constitutional Constitutional ED: Denies chills, fever(s) or subjective Cardiovascular Cardiovascular: Denies chest pain or palpitations Respiratory/Chest Respiratory/Chest: Denies cough or dyspnea Gastrointestinal Gastrointestinal: Denies nausea or vomiting Musculoskeletal Musculoskeletal: Reports arthralgias; Denies back pain, myalgias or neck pain Integumentary Denies abscess, Abrasions or rash Neurologic Neurologic: Denies paresthesias or weakness Hematologic/Lymphatic Hematologic/Lymphatic: Denies easy bleeding or easy bruising EXAM Physical Exam Narrative Exam Narrative: General: Patient awake alert no acute distress pleasant sitting on the bed. Gives a good history. HEENT shows no sign of trauma Cardiorespiratory shows easy unlabored breathing and normal heart rate. Extremities show no swelling. No erythema. She does have a tattoo on the top of her right foot but its not inflamed. There is a little bit of bruising around the first MTP but is not really swollen. It certainly not at all red. Its not warm. I can move it passively. No deformity is noted. I do not see any sores or lesions on the bottom of her foot. Const Vital Signs: 03/08/23 09:57 Temperature 97.6 F L Temperature Source Oral Pulse Rate 64 Respiratory Rate 14 Blood Pressure 132/78 H Blood Pressure Mean 96 Pulse Ox 98 Oxygen Delivery Method Room Air MDM MDM MDM Narrative Medical decision making narrative: My my independent interpretation of the three-view x-ray of the patient's right foot shows no sign of acute fracture. Final reading is similar. Patient states she is comfortable just using [id number] meds. I think she has overuse yesterday from the walking. I do not see signs of gout at this time. I do not see signs of infection. I do not think blood work will benefit us at this time. Radiography Diagnostic Testing: Clinical Impression(s) from Imaging Studies Foot X-Ray 03/08/23 11:00 IMPRESSION: No fracture. Small heel spur. Electronically Signed: Urbano Laurent MD at 11:46 EDT , Discharge Plan Triage Chief Complaint: Lower Extremity Injury ED Provider: Júnior Coles Dx/Rx/DC Orders Clinical Impression: Foot pain, right, Contusion of foot, right Instructions: ED Foot Contusion Prescriptions: No Action valacyclovir 500 tablet 500 mg PO DAILY clobazam 20 mg tablet 20 mg PO DAILY Patient Comments: TAKE 1 TABLET BY MOUTH DAILY AT BEDTIME FOR 180 DAYS. Vimpat 50 mg tablet 250 mg PO QHS Vimpat 200 mg tablet 200 mg PO DAILY azithromycin 250 mg tablet 250 mg PO DAILY fluticasone propionate 50 mcg/actuation spray,suspension 2 spray INTRANASAL DAILY Patient Comments: USE 2 SPRAYS IN EACH NOSTRIL ONCE DAILY. RINSE MOUTH AFTER USE. ondansetron 4 mg tablet,disintegrating 4 mg PO Q8H PRN (Reason: nausea and vomiting) Qty: 10 0RF doxycycline monohydrate 100 MG capsule 100 mg PO BID Qty: 20 0RF Primary Care Provider: Care Physician,No Primary Referrals: Moises Spence MD [Med Staff - [employer]] - 1 Week if not improving Care Physician,No Primary [Primary Care Provider] - Disposition Disposition: Home, Self Care
[2023-03-08 12:07] VITALS: BP 98/70; PULSE 70; RESP 16; O2SAT 98
== END 2023-03-08 12:33 | disposition home or self-care (01) ==
LOC: ED 12:06
PROVIDERS: Emergency Provider Emergency Medicine; PCP Internal Medicine; Visit Provider Emergency Medicine
DX: S90.31XA Contusion of right foot, initial encounter (principal); M79.671 Pain in right foot; Z87.891 Personal history of nicotine dependence; X58.XXXA Exposure to other specified factors, initial encounter
CPT/HCPCS: 73630; 99282

== ENCOUNTER 2024-01-25 16:15 | Emergency (ER) | payer MEDICARE, MEDICAID, SELFPAY ==
[2024-01-25 16:15] VITALS: BP 114/82; PULSE 88; RESP 16; TEMP 36.6; O2SAT 100; BMI 40.8
--- NOTE | 2024-01-25 17:01 | CT_ITS ---
INDICATION: headache CAVERNOUS HEMANGIOMA OF BRAIN REMOVED. UNRELIEVED VEGA STARTED SAT. FLASHES OF LIGHT WHEN BLINKING. NAUSEA. H/O SEIZURES. EXAMINATION: CT BRAIN - CT Head or Brain W/O Contrast Injection TECHNIQUE: Multiple axial images were obtained of the head without intravenous contrast. The protocol utilizes one or more of the following dose reduction techniques: automated exposure control, adjustment of mA and/or kV according to patient size,and/or use of iterative reconstruction technique. IV Contrast dosage and agent: None. RADIATION DOSAGE (If Supplied By Facility): CTDIvol = ( 44.99 ) mGy, DLP = ( 779.24 ) mGycm COMPARISON: CT head 10/21/2020 FINDINGS: BRAIN: No acute bleed. No edema. Encephalomalacia in the left temporal region. Raphael-white matter differentiation is maintained. VENTRICLES AND SULCI: Not dilated. EXTRA-AXIAL: No hemorrhage, fluid collection, or mass. CALVARIUM / SKULL BASE: Left craniotomy. FACE/SINUSES: Mucosal thickening in the frontal sinuses, new compared to prior. SOFT TISSUES: Unremarkable. CT/Brain/Head without Contrast IMPRESSION: No acute intracranial abnormality. 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 Frontal sinus disease, new compared to prior. Electronically Signed: Christiana Espitia MD at 18:10 EDT ,
--- NOTE | 2024-01-25 17:02 | EDS_ITS ---
HPI History of Present Illness Chief Complaint: Neuro S/Sx Informant: patient Onset/Context/Timing Onset: Days Context: Gradual Timing: Continuous Quality -Headache: Positive for Similar Prior Headaches and Sharp Current Severity: Moderate Maximum Severity: Moderate Associated Symptoms/Injury Associated Symptoms: Positive for Nausea; Negative for Fever, Vomiting, Sore Throat, Sinus Pressure, Numbness, Tingling, Preceding Aura, Visual Changes, Blurred Vision, Photophobia or Visual Loss Injury - VEGA: Negative for Direct Trauma, Fall or Assault Narrative Narrative: 28-year-old female history of prior craniotomy with resection of a cavernous angioma for which she had intracranial bleeds. Has had resultant seizures. States since Thursday after walking the. She has had a frontal headache. With flashing lights. No weakness or trouble using her arms or legs. No trouble with her balance. Denies any falls or trauma. She is on no blood thinners. No fever or sinus congestion. Prior similar symptoms: Yes Recent Illness/Hospitalization: No [facility] Medical History Epilepsy Cavernous hemangioma of brain HSV (herpes simplex virus) infection Post depression Home Medications ?Medication ?Instructions ?Recorded ?Last Taken ?Type valacyclovir 500 mg tablet 500 mg PO DAILY 02/02/19 Unknown History clobazam 20 mg tablet 20 mg PO DAILY 11/10/20 Unknown History azithromycin 250 mg tablet 250 mg PO DAILY 08/25/21 Unknown History fluticasone propionate 50 2 spray intranasal DAILY 08/25/21 Unknown History mcg/actuation nasal spray,suspension lacosamide 200 mg tablet (Vimpat) 200 mg PO DAILY 08/25/21 Unknown History lacosamide 50 mg tablet (Vimpat) 250 mg PO QHS 08/25/21 Unknown History ondansetron 4 mg disintegrating 4 mg PO Q8H PRN nausea and 08/25/21 Unknown Rx tablet vomiting #10 tabs doxycycline monohydrate 100 mg 100 mg PO BID #20 caps 10/16/21 Unknown Rx capsule Allergy/AdvReac Type Severity Reaction Status Date / Time amoxicillin (Amoxicillin) Allergy Rash Verified 01/25/24 16:16 clarithromycin (From Biaxin) Allergy Rash Verified 01/25/24 16:16 soy Allergy Anaphylaxis Verified 01/25/24 16:16 lactose AdvReac Upset Verified 01/25/24 16:16 Stomach latex AdvReac Rash Verified 01/25/24 16:16 Surgical History History of brain surgery delivery delivered Social History Smoking Status: Former smoker alcohol intake: never caffeine: Yes what type of physical activity do you participate in: none seatbelt use: always do you feel safe at home: Yes additional social history: single ROS ROS ED ROS Narrative Headache. Nausea. Constitutional Constitutional ED: Denies chills or fever(s) Eyes Eyes: Denies blurry vision ENT ENT ED: Denies ear pain Cardiovascular Cardiovascular: Denies chest pain Respiratory/Chest Respiratory/Chest: Denies cough or dyspnea Gastrointestinal Gastrointestinal: Reports nausea; Denies abdominal pain, constipation, diarrhea, melena or vomiting Genitourinary Genitourinary ED: Denies dysuria Musculoskeletal Musculoskeletal: Denies arthralgias Integumentary Denies abscess Neurologic Neurologic: Reports headache(s) Psychiatric Psychiatric: Denies anxiety Endocrine Endocrinology: Denies polydipsia Hematologic/Lymphatic Hematologic/Lymphatic: Denies easy bleeding Allergic/Immunologic Allergic/Immunologic ED: Denies mouth swelling EXAM Physical Exam Narrative Exam Narrative: Well-appearing 28-year-old female. Vital signs stable afebrile. H EENT exam unremarkable. Pupils round react to light. No facial droop. Normal speech. No trauma or tenderness. Neck nontender. No lymphadenopathy. No meningismus. Lungs clear to auscultation. Heart regular rhythm rate about 90 no murmur. Abdomen soft nontender. Moving all 4 extremities. 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 Dorsi plantarflexion intact. Neurologically she is awake and alert. NIH 0. Fingertip to nose within normal limits. Benign exam. Const Vital Signs: 01/25/24 16:15 Temperature 98 F Temperature Source Oral Pulse Rate 88 Respiratory Rate 16 Blood Pressure 114/82 H Blood Pressure Mean 92 Pulse Ox 100 Oxygen Delivery Method Room Air Positive well nourished and well developed; Negative for cachectic, contractures or unkempt General Appearance ED: well developed and NAD; Negative for unkempt, cachectic, contractures, cyanotic, diaphoretic or pallor Nutritional Appearance: Negative for cachectic HEENT Reports normocephalic and moist mucous membranes; Denies dry mucous membranes atraumatic; Negative for trauma, tenderness, temporal artery tenderness or vesicular rash Face and Sinus: Negative for sinus tenderness Mouth ED: No dry mucous membranes Mouth: No dry mucous membranes Eyes PERRL and EOMs intact bilaterally General Eye ED: Negative for pale conjunctiva or scleral icterus Neck no lymphadenopathy, supple, no meningeal signs and no JVD General: Negative for tenderness Resp normal respiratory effort and clear to auscultation bilaterally Effort and Inspection: Negative for retractions Auscultation: Negative for rales, rhonchi, wheezes or diminished lung sounds Cardio regular rate, regular rhythm, S1 normal heart sound, S2 normal heart sound and no murmurs Rate: Negative for bradycardia or tachycardic Rhythm: Negative for abnormal rhythm GI non-tender and non-distended Auscultation: normoactive bowel sounds Palpation: soft; Negative for firm, tender, guarding or mass Back/Spine no CVA tenderness General Back: Negative for CVA tenderness Cervical Spine: Negative for cervical spine tenderness Thoracic Spine / Upper Back: Negative for thoracic spinal tenderness Lumbar Spine / Lower Back: Negative for lumbar spinal tenderness Extremity normal to inspection and full ROM General Extremety ED: Negative for edema, tenderness or other findings General Extremity: Negative for edema or other findings Neuro oriented x3, CN's II-XII intact bilaterally and no sensory deficits noted Sensorium / Orientation: awake, alert, oriented to person, oriented to place and oriented to time; Negative for orientation impaired, lethargic or stuporous Coordination / Balance: [id number] test normal Speech: speech normal Motor Exam: strength 5/5 throughout Psych mental status grossly normal Appearance: Negative for unkempt Attitude: No agitated Mood & Affect: Negative for depressed or anxious Skin General Skin Exam: elasticity normal and turgor normal; Negative for jaundice or pallor Lesions: no lesions Rashes: no rashes MDM MDM MDM Narrative Medical decision making narrative: 28-year-old female prior craniotomy for cavernous angioma prior intracranial bleed and seizures. Headache. Exam normal. She only wanted Tylenol for pain. CAT scan to be obtained. If that is well she will be discharged to home. Repeat exam patient doing well at 6:33 PM. We discussed her CAT scan results. She will be discharged to home. Radiography Diagnostic Testing: Clinical Impression(s) from Imaging Studies Brain CT 01/25/24 17:01 IMPRESSION: No acute intracranial abnormality. 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 Frontal sinus disease, new compared to prior. Electronically Signed: Christiana Espitia MD at 18:10 EDT , Discharge Plan Triage Chief Complaint: Neuro S/Sx ED Provider: Azael Helms Dx/Rx/DC Orders Clinical Impression: Headache, History of craniotomy, History of intracranial hemorrhage Prescriptions: No Action valacyclovir 500 tablet 500 mg PO DAILY clobazam 20 mg tablet 20 mg PO DAILY Patient Comments: TAKE 1 TABLET BY MOUTH DAILY AT BEDTIME FOR 180 DAYS. Vimpat 50 mg tablet 250 mg PO QHS Vimpat 200 mg tablet 200 mg PO DAILY azithromycin 250 mg tablet 250 mg PO DAILY fluticasone propionate 50 mcg/actuation spray,suspension 2 spray INTRANASAL DAILY Patient Comments: USE 2 SPRAYS IN EACH NOSTRIL ONCE DAILY. RINSE MOUTH AFTER USE. ondansetron 4 mg tablet,disintegrating 4 mg PO Q8H PRN (Reason: nausea and vomiting) Qty: 10 0RF doxycycline monohydrate 100 MG capsule 100 mg PO BID Qty: 20 0RF Primary Care Provider: Sherri Brown Referrals: Sherri Brown MD [Primary Care Provider] - As Needed Activity Restrictions/Additional Instructions: CAT scan look good. Plenty of fluids and rest. Alternate Tylenol and Motrin for pain. Follow-up if not improving. Print Language: Greek Disposition Disposition: Home, Self Care
[2024-01-25] MEDS: Acetaminophen 500 MG Tablet 1000 MG PO (17:07)
[2024-01-25 17:09] VITALS: BMI 40.8
[2024-01-25 18:45] VITALS: BP 114/69; PULSE 68; RESP 16; TEMP 37.1; O2SAT 100
== END 2024-01-25 18:46 | disposition home or self-care (01) ==
PROVIDERS: Emergency Provider Emergency Medicine; PCP Internal Medicine; Visit Provider Emergency Medicine
DX: R51.9 Headache, unspecified (principal); R11.0 Nausea; Z87.891 Personal history of nicotine dependence; Z98.890 Other specified postprocedural states
CPT/HCPCS: 70450; 99282

== ENCOUNTER 2024-07-28 13:39 | Emergency (ER) | payer MEDICARE, MEDICAID, SELFPAY ==
[2024-07-28 13:40] VITALS: BP 121/105; PULSE 77; RESP 16; TEMP 36.4; O2SAT 99; BMI 42.1
== END 2024-07-28 14:32 | disposition left against medical advice (07) ==
LOC: ED 14:42
PROVIDERS: PCP Internal Medicine
DX: Z53.21 Procedure and treatment not carried out due to patient leaving prior to being seen by health care provider (principal)